=== PATIENT | female | born 1985 | race Caucasian/White ===

== ENCOUNTER 2020-01-16 08:23 | Outpatient (REF) | payer MEDICAID, SELFPAY | END 2020-01-16 08:24 | disposition home or self-care (01) | LOC: HO.LAB 08:23 | PROVIDERS: Visit Provider Internal Medicine | DX: Z20.828 Contact with and (suspected) exposure to other viral communicable diseases (principal) | CPT/HCPCS: C9803; U0003 ==

== ENCOUNTER 2020-02-17 10:05 | Outpatient (REF) | payer MEDICAID, SELFPAY | END 2020-02-17 10:06 | disposition home or self-care (01) | LOC: HO.LAB 10:05 | PROVIDERS: PCP Internal Medicine; Visit Provider Internal Medicine | DX: Z20.828 Contact with and (suspected) exposure to other viral communicable diseases (principal) | CPT/HCPCS: C9803; U0003 ==

== ENCOUNTER 2020-03-01 17:26 | Outpatient (REF) | payer MEDICAID, SELFPAY | END 2020-03-01 17:27 | disposition home or self-care (01) | LOC: HO.LAB 17:26 | PROVIDERS: Visit Provider Internal Medicine | DX: Z20.828 Contact with and (suspected) exposure to other viral communicable diseases (principal) | CPT/HCPCS: 36415; C9803; U0003 ==

== ENCOUNTER 2020-03-10 10:49 | Outpatient (REF) | payer MEDICAID, SELFPAY ==
--- NOTE | 2020-03-10 10:56 | XR_ITS ---
EXAMINATION: XR FOOT, RIGHT CLINICAL INFORMATION: Right foot pain COMPARISON: None TECHNIQUE: AP, lateral, and oblique views of the right foot. FINDINGS: There is no evidence of acute fracture or dislocation of the right foot. No radiopaque foreign body is seen. There is a plantar calcaneal spur. XR/XR foot RT min 3V IMPRESSION: Plantar calcaneal spur.
== END 2020-03-10 10:50 | disposition home or self-care (01) ==
LOC: HO.XRAY 10:49
PROVIDERS: PCP Internal Medicine; Visit Provider Internal Medicine
DX: M79.671 Pain in right foot (principal)
CPT/HCPCS: 73630

== ENCOUNTER → 2020-06-24 08:34 | Outpatient (BNVA) | payer MEDICAID, SELFPAY | PROVIDERS: PCP Internal Medicine; Referring Provider Internal Medicine; Visit Provider Physician Assistant | DX: E66.9 Obesity, unspecified (principal); Z68.38 Body mass index [BMI] 38.0-38.9, adult | CPT/HCPCS: 99212 ==

== ENCOUNTER 2020-07-19 09:46 | Outpatient (REF) | payer MEDICAID, SELFPAY ==
[2020-07-19 10:49] LABS: MANUAL DIFF FLAG NO
[2020-07-19 11:07] LABS: Estimated Average Glucose 114 mg/dL; Hemoglobin A1c % 5.6 %
[2020-07-19 11:09] LABS: Basophils Percent Auto 0.4 % (0-2); Eosinophils Absolute Auto 0.1 X10*3/uL (0.0-0.4); Eosinophils Percent Auto 1.7 % (0-4); Hematocrit 39.1 % (37-47); Hemoglobin 12.8 g/dl (12.0-16.0); Imm Gran Abs Auto 0.01 X10*3/uL (0.00-0.03); Imm Gran Pct Auto 0.2 % (0.0-0.4); Lymphocytes Percent Auto 41.8 % (20-40); Mean Corpuscular HGB Conc 32.7 g/dl (31.0-35.0); Mean Corpuscular Hemoglobin 28.5 pg (27.0-33.0); Mean Corpuscular Volume 87.1 fL (80-98); Mean Platelet Volume 10.5 fL (9.4-12.3); Monocytes Absolute Auto 0.4 X10*3/uL (0.1-1.2); Monocytes Percent Auto 9.2 % (2-11); Neutrophils Absolute Auto 2.2 X10*3/uL (2.0-8.3); Neutrophils Percent Auto 46.7 % (45-73); Platelet Count 371 X10*3/uL (160-400); Red Blood Count 4.49 X10*6/uL (4.20-5.50); Red Cell Distribution Width 12.7 % (11.0-16.0); White Blood Count 4.7 X10*3/uL (4.8-10.8)
[2020-07-19 11:17] LABS: Alanine Aminotransferase 90 U/L (0-31); Albumin Level 4.4 g/dL (3.5-5.0); Alkaline Phosphatase 70 U/L (39-117); Anion Gap 12 (12-20); Aspartate Amino Transferase 36 U/L (5-31); Bilirubin Total 0.6 mg/dL (0.0-1.0); Blood Urea Nitrogen 11 mg/dL (9-16); C Reactive Protein 0.59 mg/dL (< or = 0.50); Calcium 9.4 mg/dL (8.4-10.2); Carbon Dioxide 23 mmol/L (22-29); Chloride 106 mmol/L (96-108); Cholesterol 167 mg/dL; Estimated Glomerular Filt Rate > 60; Glucose Fasting 94 mg/dL (60-99); HDL Cholesterol 40 mg/dL; Iron 71 mcg/dL (30-160); LDL Cholesterol Calculated 117 mg/dl; Percent Iron Saturation 19 % (15-50); Potassium 4.4 mmol/L (3.3-5.1); Sodium 137 mmol/L (135-145); Total Iron Binding Capacity 367 mcg/dL (228-428); Total Protein 7.2 g/dL (6.5-8.0); Triglycerides 54 mg/dL; Unsaturated Iron Binding 296 ug/dL
[2020-07-19 11:40] LABS: Ferritin 57 ng/mL (10-122); TSH reflex Free T4 0.74 uIU/mL (0.32-4.0); Vitamin D 25-OH Total 21.6 ng/mL (>30)
[2020-07-19 12:22] LABS: Folate 14.8 ng/mL (> or = 4.0); Vitamin B12 461 pg/mL (200-900)
[2020-07-20 09:51] LABS: Insulin Level Total 13.7 uIU/mL
[2020-07-21 10:07] LABS: Calcium (PTHI) 9.4 mg/dL (8.6-10.2); PTHI 64 pg/mL (14-64)
[2020-07-22 16:51] LABS: Zinc 75 mcg/dL (60-130)
[2020-07-23 13:03] LABS: Vitamin B1 7 nmol/L (8-30)
[2020-07-23 17:32] LABS: Vitamin A 27 mcg/dL (38-98)
== END 2020-07-19 09:47 | disposition home or self-care (01) ==
LOC: HO.LAB 09:46
PROVIDERS: PCP Internal Medicine; Visit Provider Physician Assistant
DX: E66.01 Morbid (severe) obesity due to excess calories (principal); N92.1 Excessive and frequent menstruation with irregular cycle; Z68.38 Body mass index [BMI] 38.0-38.9, adult
CPT/HCPCS: 36415; 80053; 80061; 82306; 82607; 82728; 82746; 83036; 83525; 83540; 83970; 84425; 84443; 84590; 84630; 85025; 86140

== ENCOUNTER → 2020-07-21 09:06 | Outpatient (BNVA) | payer MEDICAID, SELFPAY | PROVIDERS: PCP Internal Medicine; Referring Provider Internal Medicine; Visit Provider Physician Assistant | DX: E66.9 Obesity, unspecified (principal); Z68.36 Body mass index [BMI] 36.0-36.9, adult | CPT/HCPCS: 99212 ==

== ENCOUNTER 2020-08-08 20:34 | Emergency (ER) | payer MEDICAID, SELFPAY ==
--- NOTE | ~2020-08-08 | XR_ITS ---
EXAMINATION: XR FOOT, LEFT CLINICAL INFORMATION: Injury left foot. Pain and swelling. COMPARISON: None TECHNIQUE: AP, lateral, and oblique views of the left foot. FINDINGS: The bones and soft tissues are normal. No fracture. Alignment is anatomic. Joint spaces are maintained. There is a small plantar calcaneal spur. XR/XR foot LT min 3V IMPRESSION: There is no acute abnormality of the foot.
[2020-08-08 21:56] VITALS: BP 140/80; PULSE 80; RESP 18; TEMP 36.4; O2SAT 96; BMI 37.5
--- NOTE | 2020-08-08 22:25 | ED.LOWEXIN ---
HPI - Extremity Injury (Lower) General Chief Complaint: Extremity Injury, Lower Stated Complaint: FALL Time Seen by Provider: 08/08/20 22:25 History of Present Illness HPI Narrative: Patient is a 35-year-old female status post accidental fall. Patient twisted her left ankle. There is pain over her left foot. Patient denies any systemic complaints she is not on any blood thinners. No nausea no vomiting. Pain is localized. Related Data Home Medications Medication Instructions Recorded Confirmed fexofenadine 60 mg tablet 60 mg PO BID 06/24/20 06/24/20 magnesium citrate 100 mg capsule 100 mg PO DAILY 06/24/20 06/24/20 venlafaxine 75 mg tablet 75 mg PO DAILY 06/24/20 06/24/20 Previous Rx's Medication Instructions Recorded cholecalciferol (vitamin D3) 1,250 1,250 mcg PO QWEEK 28 Days #4 cap 07/21/20 mcg (50,000 unit) capsule mecobalamin (vitamin B12) 1,000 1,000 mcg PO DAILY #30 tab 07/21/20 mcg chewable tablet ibuprofen 400 mg PO Q6H PRN #20 tab 08/08/20 Allergies Allergy/AdvReac Type Severity Reaction Status Date / Time Seasonal Allergies Allergy Severe Anaphylaxis Verified 07/21/20 09:16 Review of Systems Review of Systems: Constitutional: No Weight loss, No Fever, No Chills, No Night Sweats, No Fatigue, No Malaise ENT/Mouth: No Hearing loss, No Ear Pain, No Nasal Congestion, No Sinus Pain, No Hoarseness, No sore throat, No Rhinorrhea, No Swallowing Difficulty Eyes: No Eye Pain, No Swelling, No Redness, No Foreign Body, No Discharge, No Vision Changes Cardiovascular: No Chest Pain, No SOB, No Dyspnea on Exertion, No Orthopnea, No Edema, No Palpitations Respiratory: No Cough, No Sputum, No Wheezing, No Smoke Exposure, No Dyspnea Gastrointestinal: No Nausea, No Vomiting, No Diarrhea, No Constipation, No abdominal Pain, No Hematochezia, No Melena Genitourinary: no irregular bleeding, No Dysuria, No Urinary Frequency, No Hematuria, No Urinary Incontinence, No Urgency, No Flank Pain, No Urinary Flow Changes, No Hesitancy Musculoskeletal: Positive pain to the left foot Neuro: No Weakness, No Numbness, No Paresthesias, No Loss of Consciousness, No Dizziness, No Headache Psych: No Anxiety/Panic, No Depression, No SI/HI/AH/VH, No Social Issues, Heme/Lymph: No Bruising, No Bleeding,No Lymphadenopathy Endocrine: No Polyuria, No Polydipsia, No Temperature Intolerance [facility] Past Medical History Attestation statement: The following information was validated with the patient. Medical History Abdominal bloating BMI 36.0-36.9,adult BMI 38.0-38.9,adult Metrorrhagia Obesity (BMI 30-39.9) Vitamin B12 deficiency Vitamin D deficiency Surgical History History of tonsillectomy and adenoidectomy Hx of wisdom tooth extraction Family History Family History Mother Hypertension Father Diabetes Kidney disease Blindness Brother No problems noted. Brother No problems noted. Brother No problems noted. Sister No problems noted. Sister No problems noted. Son Depression Daughter No problems noted. Social History Social History Alcohol intake: current Alcohol intake frequency: holidays/special occasions only Advance Directives: No Advance Directives Information Provided: Yes Patient : No Physical Exam Vital Signs: Vital Signs: Last Vital Signs Temp 97.5 F 08/08/20 21:56 Pulse 80 08/08/20 21:56 Resp 18 08/08/20 21:56 BP 140/80 H 08/08/20 21:56 Pulse Ox 96 08/08/20 21:56 Body Mass Index 37.5 Appearance: Alert. Oriented X3. No acute distress. Eyes: Pupils equal, round and reactive to light. ENT: Pharynx normal. Neck: Normal inspection. Neck supple. No lymph nodes noted. No crepitus CVS: Normal heart rate and rhythm. Pulses normal. Normal S1 and S2 Respiratory: No respiratory distress. Breath sounds normal. No Wheezing. No rales Abdomen: Soft and nontender. No rigidity. No distention. good BS x4 Skin: Skin warm and dry. Normal skin color. Normal skin turgor. Extremities: Positive pain to the base of the 5th metatarsal on the left. There is no pain on palpation of the medial or lateral malleolus. Patient is able to ambulate. Neuro: Oriented X 3. No motor deficit. No sensory deficit. Moving all extermities. No slurred speech MDM - Extremity Injury (Lower) MDM Narrative Medical decision making narrative: X-ray of the foot showed no evidence of fracture. Will discharge patient home. Motrin for pain. In stable condition. Discharge Plan Discharge Clinical Impression: Contusion of foot Patient Disposition: Home, Self-Care Instructions: Foot Contusion (ED) Prescriptions: New ibuprofen 400 mg tablet 400 mg PO Q6H PRN (Reason: pain) Qty: 20 RF: 0 No Action mecobalamin (vitamin B12) 1,000 mcg tablet,chewable 1,000 mcg PO DAILY Qty: 30 RF: 1 cholecalciferol (vitamin D3) 1,250 mcg (50,000 unit) capsule 1,250 mcg PO QWEEK 28 Days Qty: 4 RF: 1 venlafaxine 75 mg tablet 75 mg PO DAILY RF: 0 fexofenadine [Elsa Allergy] 60 mg tablet 60 mg PO BID RF: 0 magnesium citrate 100 mg capsule 100 mg PO DAILY RF: 0 Referrals: Stuart Garcia MD [Primary Care Provider] - 2 days
== END 2020-08-08 22:51 | disposition home or self-care (01) ==
PROVIDERS: Emergency Provider Emergency Medicine Emergency Medical Services; PCP Internal Medicine
DX: S90.32XA Contusion of left foot, initial encounter (principal); W10.8XXA Fall (on) (from) other stairs and steps, initial encounter; Y93.89 Activity, other specified; Y92.018 Other place in single-family (private) house as the place of occurrence of the external cause; Y99.9 Unspecified external cause status
CPT/HCPCS: 73630; 99283

== ENCOUNTER → 2020-08-11 08:36 | Outpatient (BNVA) | payer MEDICAID, SELFPAY | PROVIDERS: PCP Internal Medicine; Referring Provider Internal Medicine; Visit Provider Dietitian, Registered | DX: E66.9 Obesity, unspecified (principal); Z68.35 Body mass index [BMI] 35.0-35.9, adult | CPT/HCPCS: 97802 ==

== ENCOUNTER → 2020-09-06 08:39 | Outpatient (BNVA) | payer MEDICAID, SELFPAY | PROVIDERS: PCP Internal Medicine; Referring Provider Internal Medicine; Visit Provider Physician Assistant | DX: E66.9 Obesity, unspecified (principal); Z68.34 Body mass index [BMI] 34.0-34.9, adult | CPT/HCPCS: 99212 ==

== ENCOUNTER → 2020-10-03 08:27 | Outpatient (BNVA) | payer MEDICAID, SELFPAY | PROVIDERS: PCP Internal Medicine; Referring Provider Internal Medicine; Visit Provider Dietitian, Registered | DX: E66.9 Obesity, unspecified (principal); Z68.33 Body mass index [BMI] 33.0-33.9, adult | CPT/HCPCS: 97803 ==

== ENCOUNTER → 2020-11-09 09:02 | Outpatient (BNVA) | payer MEDICAID, SELFPAY | PROVIDERS: PCP Internal Medicine; Referring Provider Internal Medicine; Visit Provider Physician Assistant | DX: E66.9 Obesity, unspecified (principal); Z68.32 Body mass index [BMI] 32.0-32.9, adult | CPT/HCPCS: 99212 ==

== ENCOUNTER → 2020-12-07 08:30 | Outpatient (BNVA) | payer MEDICAID, SELFPAY | PROVIDERS: PCP Internal Medicine; Referring Provider Internal Medicine; Visit Provider Dietitian, Registered | DX: E66.9 Obesity, unspecified (principal); R14.0 Abdominal distension (gaseous); E50.9 Vitamin A deficiency, unspecified; E53.9 Vitamin B deficiency, unspecified; E55.9 Vitamin D deficiency, unspecified; F17.210 Nicotine dependence, cigarettes, uncomplicated; Z68.31 Body mass index [BMI] 31.0-31.9, adult; J30.2 Other seasonal allergic rhinitis | CPT/HCPCS: 97803 ==

== ENCOUNTER → 2021-02-03 07:57 | Outpatient (BNVA) | payer MEDICAID, SELFPAY | PROVIDERS: PCP Internal Medicine; Visit Provider Physician Assistant ==

== ENCOUNTER → 2021-02-10 11:26 | Outpatient (BNVA) | payer MEDICAID, SELFPAY | PROVIDERS: PCP Internal Medicine; Referring Provider Internal Medicine; Visit Provider Internal Medicine Gastroenterology | DX: R14.0 Abdominal distension (gaseous) (principal); N92.1 Excessive and frequent menstruation with irregular cycle; R79.89 Other specified abnormal findings of blood chemistry | CPT/HCPCS: 99202 ==

== ENCOUNTER 2021-03-09 11:02 | Outpatient (REF) | payer MEDICAID, SELFPAY ==
--- NOTE | ~2021-03-09 | US_ITS ---
EXAMINATION: US COMPLETE ABDOMEN WITH LIVER ELASTOGRAPHY CLINICAL INFORMATION: Abdominal distention COMPARISON: CT abdomen pelvis 12/17/2015 and abdominal ultrasound 12/15/2015 TECHNIQUE: Real-time imaging of the abdominal viscera. Noninvasive ultrasound liver fibrosis assessment is performed using Jessenia ElastPQ point quantification shear wave elastography (2D-SWE) with a C5-2 MHz transducer. Multiple elastography samples are obtained. Today's examination is mildly limited secondary to overlying bowel gas. FINDINGS: PANCREAS: The visualized pancreatic head and body are normal in appearance. The remainder of the pancreas is obscured from visualization by the overlying bowel gas. ABDOMINAL AORTA: The proximal and distal aortic segments are normal in caliber. The middle abdominal aortic segment is not clearly visualized due to overlying bowel gas. INFERIOR VENA CAVA: Visualized portions are normal. LIVER: Normal. The liver demonstrates normal size, contour and echogenicity. No focal lesion or intrahepatic biliary duct dilatation. The right lobe measures 14.2 cm in length. The left lobe measures 13.1 cm in length. Portal flow is hepatopedal Shear wave liver elastography median stiffness is 1.54 m/s (reference: normal median stiffness is 1.3 m/s or less). IQR/median stiffness to assess sampling precision is 0.10 (reference: good quality data set is IQR/median stiffness of 0.15 or less). GALLBLADDER: Normal. The gallbladder is physiologically distended without evidence of stones, sludge, polyps, wall thickening or pericholecystic fluid. Negative sonographic Arenas's sign. COMMON BILE DUCT: Normal in caliber measuring 0.3 cm in diameter. RIGHT KIDNEY: Normal. No hydronephrosis. No renal calculi or focal parenchymal lesions. The kidney measures 11.6 cm in maximum dimension. LEFT KIDNEY: Normal. No hydronephrosis. No renal calculi or focal parenchymal lesions. The kidney measures cm in maximum dimension. SPLEEN: Normal. The spleen measures 12.5 cm in maximum dimension. FREE FLUID: None. US/US abdomen comp w elastography IMPRESSION: 1. Liver elastography: In the absence of other known clinical signs, measurements rule out compensated advanced chronic liver disease. If there are known clinical signs, further testing may be needed for confirmation. 2. Otherwise unremarkable sonographic imaging of the abdomen. REFERENCE: Society of Radiologists in Ultrasound Liver Stiffness Thresholds (2020): LIVER STIFFNESS THRESHOLDS: *Liver Stiffness equal or less than 1.3 m/s: High probability of being normal. *Liver Stiffness less than 1.7 m/s: In the absence of other known clinical signs, rules out compensated advanced chronic liver disease. *Liver Stiffness 1.7-2.1 m/s: Suggestive of compensated advanced chronic liver disease but need further test for confirmation. *Liver Stiffness over 2.1 m/s: Rules in compensated advanced chronic liver disease. *Liver Stiffness over 2.4 m/s: Suggestive of clinically significant portal hypertension. QUALITY OF DATA SET: *IQR/Median value equal or less than 0.15 implies a quality data set. *IQR/Median value over 0.15 implies a poor quality data set. SIGNIFICANT CHANGE FROM PRIOR EXAM: Significant change if liver stiffness measurement is 10% or greater from prior exam. OTHER CONSIDERATIONS: The stage of liver fibrosis may be overestimated in the setting of acute hepatitis, liver inflammation, elevated liver function tests, hepatic vascular congestion, obstructive cholestasis, non-fasting state, and infiltrative diseases such as amyloidosis and lymphoma. In some patients with NAFLD, the liver stiffness thresholds for compensated advanced chronic liver disease may be lower. In causes other than viral hepatitis and NAFLD, liver stiffness thresholds are not well established.
== END 2021-03-09 11:03 | disposition home or self-care (01) ==
LOC: HO.US 11:02
PROVIDERS: PCP Internal Medicine; Visit Provider Internal Medicine Gastroenterology
DX: R14.0 Abdominal distension (gaseous) (principal)
CPT/HCPCS: 76705; 76981

== ENCOUNTER → 2021-03-10 08:02 | Outpatient (BNVA) | payer MEDICAID, SELFPAY | PROVIDERS: PCP Internal Medicine; Visit Provider Physician Assistant ==

== ENCOUNTER 2021-04-03 07:38 | Day surgery (SDC) | payer MEDICAID, SELFPAY ==
[2021-03-29 12:57] VITALS: BMI 32.1
--- NOTE | 2021-03-31 11:50 | HO.ANESPROP2 ---
Documented by User: Geno Butt NP 03/31/21 11:51 HPI - Anesthesia Eval Consult details Narrative: 35yo F for Colonoscopy PMFSH Active Problems Active Problems: All Active Problems (Updated 02/10/21 @ 11:54 by Laureen Licea MD) Abnormal LFTs (Acute) Obesity (BMI 30-39.9) (Acute) BMI 34.0-34.9,adult (Acute) Vitamin A deficiency (Acute) Abdominal bloating (Acute) BMI 36.0-36.9,adult (Acute) Vitamin D deficiency (Acute) Vitamin B12 deficiency (Acute) BMI 38.0-38.9,adult (Acute) Metrorrhagia (Acute) Past Medical History Medical History Abdominal bloating BMI 34.0-34.9,adult BMI 36.0-36.9,adult BMI 38.0-38.9,adult Metrorrhagia Obesity (BMI 30-39.9) Vitamin A deficiency Vitamin B12 deficiency Vitamin D deficiency Family History Family History Mother Hypertension Father Diabetes Kidney disease Blindness Brother No problems noted. Brother No problems noted. Brother No problems noted. Sister No problems noted. Sister No problems noted. Son Depression Daughter No problems noted. Surgical History Surgical History History of tonsillectomy and adenoidectomy Hx of wisdom tooth extraction Social History Social History Alcohol intake: current Alcohol intake frequency: holidays/special occasions only Patient Tobacco Use Status: Former Tobacco user Years Smoked: socially only Use of substances other than those prescribed or required for medical reasons: No Are you DNR?: No Advance Directives: No Advance Directives Information Provided: Yes Meds Allergies Allergy/AdvReac Type Severity Reaction Status Date / Time Seasonal Allergies Allergy Severe Anaphylaxis Verified 04/03/21 07:48 Home Medications Medication Instructions Recorded Confirmed Last Taken Type fexofenadine 60 mg tablet (Elsa 60 mg PO BID 06/24/20 09/06/20 Unknown History Allergy) magnesium citrate 100 mg capsule 100 mg PO DAILY 06/24/20 09/06/20 Unknown History venlafaxine 75 mg tablet 75 mg PO DAILY 06/24/20 09/06/20 Unknown History Exam Exam Date and Time: March 31, 2021 1150 Height,Weight and Vital Signs: Height 5 ft 7 in Weight 92.986 kg Assessment and Plan Assessment Anesthesia Assessment: Chart Reviewed Documented by User: Belinda Charles MD 04/03/21 08:37 [facility] Past Medical History Medical History Abdominal bloating BMI 34.0-34.9,adult BMI 36.0-36.9,adult BMI 38.0-38.9,adult Metrorrhagia Obesity (BMI 30-39.9) Vitamin A deficiency Vitamin B12 deficiency Vitamin D deficiency Family History Family History Mother Hypertension Father Diabetes Kidney disease Blindness Brother No problems noted. Brother No problems noted. Brother No problems noted. Sister No problems noted. Sister No problems noted. Son Depression Daughter No problems noted. Family history of problems with anesthesia: No Surgical History Surgical History History of tonsillectomy and adenoidectomy Hx of wisdom tooth extraction History of Problems with Anesthesia: No Social History Social History Alcohol intake: current Alcohol intake frequency: holidays/special occasions only Patient Tobacco Use Status: Former Tobacco user Years Smoked: socially only Use of substances other than those prescribed or required for medical reasons: No Are you DNR?: No Advance Directives: No Advance Directives Information Provided: Yes Meds Allergies Allergy/AdvReac Type Severity Reaction Status Date / Time Seasonal Allergies Allergy Severe Anaphylaxis Verified 04/03/21 07:48 Home Medications Medication Instructions Recorded Confirmed Last Taken Type fexofenadine 60 mg tablet (Elsa 60 mg PO BID 06/24/20 09/06/20 Unknown History Allergy) magnesium citrate 100 mg capsule 100 mg PO DAILY 06/24/20 09/06/20 Unknown History venlafaxine 75 mg tablet 75 mg PO DAILY 06/24/20 09/06/20 Unknown History Exam Airway Mallampati Class: II TM Dist: >3cm Neck ROM: Full Heart: rrr Lungs: cta Assessment and Plan Assessment Anesthesia Assessment: Anesthesia Plan Discussed and Chart Reviewed Final Anesthetic Review Family History of Problems with Anesthesia: No History of Problems with Anesthesia: No NPO: Yes ASA Class: III Final Preanesthetic Review: No Changes in Pt Med Stat, Meds/Allgs Chart Reviewed and Consent Obtained/Reviewed Patient Risk: Intermediate Procedure Risk: Intermediate Anesthetic Plan Anesthetic Plan: MAC: Disposition: Standard PACU
[2021-04-03 07:59] VITALS: BP 115/69; PULSE 81; RESP 16; TEMP 37.1; O2SAT 96
[2021-04-03] MEDS: Lactated Ringers 1,000 ML 100 ML IVCONT (08:14)
--- NOTE | 2021-04-03 08:36 | MHC.SHP ---
Pre-Procedural Eval Section A Date of Service: 04/03/21 Section B Chief Complaint: abnomal findings,rectal bleeding Relevant Family History (Specify if Yes): No Relevant Social History: None Present Medications: see Short Stay Collaborative assessment Medical History: Significant History (Metrorrhagia Obesity (BMI 30-39.9) Vitamin A deficiency Vitamin B12 deficiency Vitamin D deficiency) History of Previous Operations: Relevant previous surgery/procedure and date(s) (tonisl, adenoids) Allergies: Allergies Allergy/AdvReac Type Severity Reaction Status Date / Time Seasonal Allergies Allergy Severe Anaphylaxis Verified 04/03/21 07:48 Review of Systems Sugical H&P ROS: Negative: Constitution, Cardiovascular, Respiratory, Neurological, Psychiatric, Hem-Onc, Allergic/Immunologic, Gastrointestinal, Genitourinary, Musculoskeletal, Integumentary, Endocrine and Eyes/Ears/Nose/Throat Exam Surgical H&P Exam: Normal: HEENT, Normal: Heart, Normal: Lungs, Normal: Extremities, Normal: Abdomen, Normal: Skin and Normal: Neurological Plan Diagnosis/Plan: Unchanged I have reviewed the history and physical and performed a pertinent physical examination on my patient. No changes have occurred unless specified.
--- NOTE | 2021-04-03 08:38 | PM.OP ---
Brief Operative Note Date of Service: 04/03/21 Pre-op diagnosis: rectal bleeding, bloating Post-op diagnosis: same Procedure: see op note Surgeon: Laureen Licea MD Anesthesia: MAC Was an Vp Genetic used for this Procedure?: No Estimated blood loss (mL): 0 Condition: stable Disposition: PACU
--- NOTE | 2021-04-03 08:38 | W.PM.OPN ---
Operative Note Operative Note Date of Service: 04/03/21 Narrative: Operative Information Procedure Description: Colonoscopy COLONOSCOPY Instrument: Olympus variable stiffness pediatric scope 190L Colonoscopy Monitoring: Vital signs and clinical assessment, continuous EKG monitoring, Pulse oximetry, Carbon Dioxide monitoring and blood pressure monitoring were done throughout the procedure. Colon withdrawal time was 11 minutes. Procedure: The patient was placed in the left lateral decubitis position and pre-procedure medications were administered. After a digital rectal examination of the ano-rectum, the video colonoscope was inserted into the rectum and advanced through the colon to the cecum/TI. The colonoscope was slowly withdrawn in a retrograde panoramic fashion and the colon mucosa was carefully examined including a retroflexed view of the rectum. Findings and interventions are described below. Procedure Difficulty: easy Findings: Terminal Ileum-normal, bx taken random colon bx taken to r/o infiltrative disease, mast cell disorder Cecum:normal right sided retroflexion was normal Ascending Colon: granular appearing mucosa Transverse Colon -normal Descending Colon:normal Sigmoid Colon: normal Rectum: Retroflexion with small internal hemorrhoids, grade I, some edematous appearing distal rectal tissue, bx taken Anorectum - normal Colon preparation: [place] Bowel Preparation Scale Right colon; 2 Transverse colon: 3 Left colon; 3 (0 = Unprepared colon segment with mucosa not seen due to solid stool that cannot be cleared. 1 = Portion of mucosa of the colon segment seen, but other areas of the colon segment not well seen due to staining, residual stool and/or opaque liquid. 2 = Minor amount of residual staining, small fragments of stool and/or opaque liquid, but mucosa of colon segment seen well. 3 = Entire mucosa of colon segment seen well with no residual staining, small fragments of stool or opaque liquid) Impression and Post Procedure Diagnosis: internal hemorrhoids Plan: High fiber diet leaflet Avoid straining at stool, epsom salts and sitz bath, anusol supps or cream Repeat Colonoscopy aged 45 years or earlier if clinically indicated Above findings were reviewed with the patient and relevant handouts were provided if indicated.
[2021-04-03 08:44] LABS: UPreg QC Valid YES; Urine Pregnancy NEGATIVE (NEGATIVE)
--- NOTE | 2021-04-03 08:57 | PC.NURSE ---
insufficient amount of urine for hcg at 0645. bolused with some fluids and new urine sent down at 830. delay into room due to results pending. results at 845.
[2021-04-03 09:16] VITALS: BP 105/53; PULSE 72; RESP 16; TEMP 36.8; O2SAT 96
[2021-04-03 09:31] VITALS: BP 101/63; PULSE 73; RESP 16; TEMP 36.8; O2SAT 97
== END 2021-04-03 10:03 | disposition home or self-care (01) ==
PROVIDERS: Nurse Practitioner; PCP Internal Medicine; Visit Provider Internal Medicine Gastroenterology
PROC: 0DJD8ZZ Inspection of Lower Intestinal Tract, Via Natural or Artificial Opening Endoscopic (ICD-10-PCS; CPT 45378; principal; 2021-04-03 08:30)
DX: K62.5 Hemorrhage of anus and rectum (principal); R14.0 Abdominal distension (gaseous); N92.1 Excessive and frequent menstruation with irregular cycle; K90.49 Malabsorption due to intolerance, not elsewhere classified; K75.81 Nonalcoholic steatohepatitis (NASH); K64.0 First degree hemorrhoids; E66.9 Obesity, unspecified; Z68.32 Body mass index [BMI] 32.0-32.9, adult; E50.9 Vitamin A deficiency, unspecified; E53.8 Deficiency of other specified B group vitamins; E55.9 Vitamin D deficiency, unspecified; J30.2 Other seasonal allergic rhinitis; Z87.891 Personal history of nicotine dependence
CPT/HCPCS: 45380; 81025; 88305; 88342

== ENCOUNTER → 2021-04-12 08:08 | Outpatient (BNVA) | payer MEDICAID, SELFPAY | PROVIDERS: PCP Internal Medicine; Visit Provider Physician Assistant ==

== ENCOUNTER 2021-05-05 08:35 | Outpatient (REF) | payer MEDICAID, SELFPAY ==
[2021-05-05 17:31] LABS: CT PCR NOT DETECTED (Not Detect.); NG PCR DETECTED (Not Detect.)
[2021-05-06 13:09] LABS: BV Int Neg Control Negative (Negative); BV Int Pos Control Positive (Positive)
[2021-05-11 11:00] LABS: HPV mRNA E6/E7 rflx Not Detected (Not Detected)
== END 2021-05-05 08:36 | disposition home or self-care (01) ==
LOC: HO.LAB 08:35
PROVIDERS: PCP Internal Medicine; Visit Provider Advanced Practice Midwife
DX: Z01.419 Encounter for gynecological examination (general) (routine) without abnormal findings (principal); Z11.51 Encounter for screening for human papillomavirus (HPV); B00.9 Herpesviral infection, unspecified; Z20.2 Contact with and (suspected) exposure to infections with a predominantly sexual mode of transmission
CPT/HCPCS: 87480; 87491; 87510; 87591; 87624; 87660; 88142

== ENCOUNTER 2021-05-24 09:22 | Outpatient (REF) | payer MEDICAID, SELFPAY ==
[2021-05-24 10:27] LABS: MANUAL DIFF FLAG NO
[2021-05-24 11:15] LABS: Basophils Percent Auto 0.2 % (0-2); Eosinophils Absolute Auto 0.1 X10*3/uL (0.0-0.4); Hematocrit 39.2 % (37.0-47.0); Hemoglobin 13.2 g/dl (12.0-16.0); Imm Gran Abs Auto 0.01 X10*3/uL (0.00-0.03); Imm Gran Pct Auto 0.2 % (0.0-0.4); Lymphocytes Absolute Auto 2.3 X10*3/uL (1.2-4.9); Lymphocytes Percent Auto 46.8 % (20-40); Mean Corpuscular HGB Conc 33.7 g/dl (31.0-35.0); Mean Corpuscular Hemoglobin 29.1 pg (27.0-33.0); Mean Corpuscular Volume 86.3 fL (80.0-98.0); Mean Platelet Volume 10.6 fL (9.4-12.3); Monocytes Absolute Auto 0.4 X10*3/uL (0.1-1.2); Monocytes Percent Auto 7.5 % (2-11); Neutrophils Absolute Auto 2.1 x10*3/uL (2.0-8.3); Neutrophils Percent Auto 44.3 % (45-73); Platelet Count 418 X10*3/uL (160-400); Red Blood Count 4.54 X10*6/uL (4.20-5.50); Red Cell Distribution Width 12.7 % (11.0-16.0); White Blood Count 4.8 X10*3/uL (4.8-10.8)
[2021-05-24 12:29] LABS: Erythrocyte Sedimentation Rate 11 MM/HR (0-20)
[2021-05-24 12:48] LABS: Ferritin 44 ng/mL (10-122); Folate 10.8 ng/mL (> or = 4.0); TSH reflex Free T4 1.62 uIU/mL (0.32-4.0); Vitamin B12 421 pg/mL (200-900)
[2021-05-24 12:53] LABS: Syphilis Screen Nonreactive (Nonreactive)
[2021-05-24 13:12] LABS: Alanine Aminotransferase 15 U/L (0-31); Albumin Level 4.5 g/dL (3.5-5.0); Alkaline Phosphatase 63 U/L (39-117); Anion Gap 13 (12-20); Aspartate Amino Transferase 11 U/L (5-31); Bilirubin Total 0.3 mg/dL (0.0-1.0); Blood Urea Nitrogen 17 mg/dL (9-16); Calcium 9.8 mg/dL (8.4-10.2); Carbon Dioxide 24 mmol/L (22-29); Chloride 107 mmol/L (96-108); Estimated Glomerular Filt Rate > 60; Glucose Random 87 mg/dL (60-115); Iron 74 mcg/dL (30-160); Percent Iron Saturation 18 % (15-50); Potassium 4.7 mmol/L (3.3-5.1); Sodium 139 mmol/L (135-145); Total Iron Binding Capacity 421 mcg/dL (228-428); Total Protein 7.9 g/dL (6.5-8.0); Unsaturated Iron Binding 347 ug/dL
[2021-05-25 05:52] LABS: HBc Num1 0.08 S/CO (0.00-0.79); HBsAGNum1 0.19 S/CO (0.00-0.99); HBsAGNum1 0.42 S/CO (0.00-0.99); HIV AB/AG Nonreactive (Nonreactive); HIV Num 1 0.07 S/CO (0.00-0.99); Hepatitis B Core Antibody Nonreactive (Nonreactive); Hepatitis B Surface Antigen Negative (Negative)
[2021-05-25 05:57] LABS: ~HepC Num1 0.11 S/CO (0.00-0.79); ~HepC Num1 0.12 S/CO (0.00-0.79); ~Hepatitis C Antibody Nonreactive (Nonreactive)
[2021-05-25 06:51] LABS: HBS Num2 9.89 mIU/mL (0-7.99); HBS Num3 10.51 mIU/mL (0-7.99); ~Hepatitis B Surface Antibody GRAYZONE (Nonreactive)
[2021-05-25 11:42] LABS: Alpha 1 Anti-trypsin 122 mg/dL (83-199); Ceruloplasmin 30 mg/dL (18-53); Immunoglobulin G 1434 mg/dL (600-1640)
[2021-05-26 08:32] LABS: Hepatitis A Antibody IgM 0.14 Index (0-0.79); ~Hepatitis A Antibody IgM Nonreactive (Nonreactive)
[2021-05-26 13:46] LABS: Anti Nuclear Antibody Screen NEGATIVE (NEGATIVE)
[2021-05-28 12:45] LABS: Mitochondrial Antibodies NEGATIVE (NEGATIVE)
[2021-05-29 13:52] LABS: Transglutaminase Ab IgG <1.0 U/mL; Transglutaminase IgA <1.0 U/mL
[2021-05-30 13:42] LABS: Liver Kidney Microsomal Ab <=20.0 U (<=20.0)
== END 2021-05-24 09:23 | disposition home or self-care (01) ==
LOC: HO.LAB 09:22
PROVIDERS: Internal Medicine Gastroenterology; PCP Internal Medicine; Visit Provider Advanced Practice Midwife
DX: Z12.4 Encounter for screening for malignant neoplasm of cervix (principal); Z11.4 Encounter for screening for human immunodeficiency virus [HIV]; A54.9 Gonococcal infection, unspecified; Z20.2 Contact with and (suspected) exposure to infections with a predominantly sexual mode of transmission; K52.839 Microscopic colitis, unspecified; R79.82 Elevated C-reactive protein (CRP); R10.33 Periumbilical pain; G89.29 Other chronic pain; K75.81 Nonalcoholic steatohepatitis (NASH); R79.89 Other specified abnormal findings of blood chemistry; R14.0 Abdominal distension (gaseous); N92.1 Excessive and frequent menstruation with irregular cycle
CPT/HCPCS: 36415; 80053; 82103; 82390; 82607; 82728; 82746; 82784; 83540; 84443; 85025; 85652; 86038; 86039; 86140; 86255; 86256; 86364; 86376; 86704; 86706; 86709; 86780; 86803; 87340; 87389; 96372; 99211; J0696

== ENCOUNTER → 2021-06-19 08:47 | Outpatient (BNVA) | payer MEDICAID, SELFPAY | PROVIDERS: PCP Internal Medicine; Visit Provider Internal Medicine Gastroenterology | DX: Z13.89 Encounter for screening for other disorder (principal) ==

== ENCOUNTER → 2021-06-20 13:32 | Outpatient (BNVA) | payer MEDICAID, SELFPAY | PROVIDERS: Visit Provider Advanced Practice Midwife | DX: Z13.89 Encounter for screening for other disorder (principal) ==

== ENCOUNTER → 2021-07-13 14:29 | Outpatient (BNVA) | payer MEDICAID, SELFPAY | PROVIDERS: Visit Provider Advanced Practice Midwife | DX: A54.9 Gonococcal infection, unspecified (principal) ==

== ENCOUNTER 2021-10-06 11:29 | Outpatient (REF) | payer MEDICAID, SELFPAY ==
[2021-10-07 02:43] LABS: CT PCR NOT DETECTED (Not Detect.); NG PCR NOT DETECTED (Not Detect.)
[2021-10-07 15:06] LABS: BV Int Neg Control Negative (Negative); BV Int Pos Control Positive (Positive)
== END 2021-10-06 11:30 | disposition home or self-care (01) ==
LOC: HO.LAB 11:29
PROVIDERS: Visit Provider Advanced Practice Midwife
DX: Z11.3 Encounter for screening for infections with a predominantly sexual mode of transmission (principal); A54.9 Gonococcal infection, unspecified; Z20.2 Contact with and (suspected) exposure to infections with a predominantly sexual mode of transmission
CPT/HCPCS: 87480; 87491; 87510; 87591; 87660; 99212

== ENCOUNTER → 2022-05-23 08:35 | Outpatient (BNVA) | payer MEDICAID, SELFPAY | PROVIDERS: PCP Internal Medicine; Visit Provider Physician Assistant ==

== ENCOUNTER 2022-06-08 11:01 | Outpatient (REF) | payer MEDICAID, SELFPAY ==
[2022-06-09 15:22] LABS: H Pylori Breath Test Negative (Negative)
== END 2022-06-08 11:02 | disposition home or self-care (01) ==
LOC: HO.LNP 11:01
PROVIDERS: PCP Internal Medicine; Visit Provider Physician Assistant
DX: E66.01 Morbid (severe) obesity due to excess calories (principal); Z68.37 Body mass index [BMI] 37.0-37.9, adult; Z11.0 Encounter for screening for intestinal infectious diseases
CPT/HCPCS: 83013; 99211; 99212

== ENCOUNTER → 2022-06-29 09:28 | Outpatient (BNVA) | payer MEDICAID, SELFPAY | PROVIDERS: PCP Internal Medicine; Referring Provider Internal Medicine; Visit Provider Physician Assistant | DX: E66.01 Morbid (severe) obesity due to excess calories (principal); Z68.37 Body mass index [BMI] 37.0-37.9, adult | CPT/HCPCS: 99212 ==

== ENCOUNTER → 2022-07-09 09:21 | Outpatient (BNVA) | payer MEDICAID, SELFPAY | PROVIDERS: PCP Internal Medicine; Visit Provider Dietitian, Registered | DX: E66.9 Obesity, unspecified (principal) | CPT/HCPCS: 97803 ==

== ENCOUNTER 2022-07-13 09:05 | Outpatient (REF) | payer MEDICAID, SELFPAY ==
--- NOTE | ~2022-07-13 | XR_ITS ---
EXAMINATION: XR CHEST CLINICAL INFORMATION: Morbid obesity. COMPARISON: 12/15/2015 TECHNIQUE: 2 views of the chest were obtained. FINDINGS: The lungs are well expanded. No focal consolidation. No pleural effusion. Cardiac silhouette is unchanged. XR/XR chest 2V IMPRESSION: No acute abnormality.
--- NOTE | 2022-07-13 11:01 | ECG_ITS ---
Test Reason : obesity Blood Pressure : / mmHG Vent. Rate : 086 BPM Atrial Rate : 086 BPM P-R Int : 184 ms QRS Dur : 086 ms QT Int : 368 ms P-R-T Axes : 036 030 038 degrees QTc Int : 440 ms Normal sinus rhythm Normal ECG When compared to the previous EKG of No significant changes seen Referred By: Sheila Dutton Electronically Signed By:Iain Garg
[2022-07-13 11:19] LABS: MANUAL DIFF FLAG NO
[2022-07-13 12:05] LABS: Basophils Percent Auto 0.3 % (0-2); Eosinophils Absolute Auto 0.1 X10*3/uL (0.0-0.4); Eosinophils Percent Auto 0.7 % (0-4); Hemoglobin 13.7 g/dl (12.0-16.0); Imm Gran Abs Auto 0.06 X10*3/uL (0.00-0.03); Imm Gran Pct Auto 0.4 % (0.0-0.4); Lymphocytes Absolute Auto 2.2 X10*3/uL (1.2-4.9); Lymphocytes Percent Auto 16.3 % (20-40); Mean Corpuscular HGB Conc 33.4 g/dl (31.0-35.0); Mean Corpuscular Hemoglobin 28.5 pg (27.0-33.0); Mean Corpuscular Volume 85.4 fL (80.0-98.0); Mean Platelet Volume 10.4 fL (9.4-12.3); Monocytes Percent Auto 7.5 % (2-11); Neutrophils Absolute Auto 10.3 x10*3/uL (2.0-8.3); Neutrophils Percent Auto 74.8 % (45-73); Platelet Count 366 X10*3/uL (160-400); Red Cell Distribution Width 12.9 % (11.0-16.0); White Blood Count 13.7 X10*3/uL (4.8-10.8)
[2022-07-13 12:30] LABS: Estimated Average Glucose 111 mg/dL; Hemoglobin A1C 133.8726 umol/L; Hemoglobin A1c % 5.5 %
[2022-07-13 12:53] LABS: Alanine Aminotransferase 42 U/L (0-31); Albumin Level 4.5 g/dL (3.5-5.0); Alkaline Phosphatase 71 U/L (39-117); Anion Gap 10 (12-20); Aspartate Amino Transferase 17 U/L (5-31); Bilirubin Total 0.6 mg/dL (0.0-1.0); Blood Urea Nitrogen 11 mg/dL (9-16); Calcium 9.6 mg/dL (8.4-10.2); Carbon Dioxide 27 mmol/L (22-29); Chloride 106 mmol/L (96-108); Cholesterol 171 mg/dL; Estimated Glomerular Filt Rate > 60; Glucose Random 87 mg/dL (60-115); HDL Cholesterol 44 mg/dL; Iron 33 mcg/dL (30-160); LDL Cholesterol Calculated 113 mg/dl; Percent Iron Saturation 10 % (15-50); Potassium 4.3 mmol/L (3.3-5.1); Sodium 139 mmol/L (135-145); Total Iron Binding Capacity 316 mcg/dL (228-428); Total Protein 7.5 g/dL (6.5-8.0); Triglycerides 72 mg/dL; Unsaturated Iron Binding 283 ug/dL
[2022-07-13 13:31] LABS: Ferritin 84 ng/mL (10-122); Folate 10.6 ng/mL (> or = 4.0); TSH reflex Free T4 1.52 uIU/mL (0.32-4.0); Vitamin B12 368 pg/mL (200-900); Vitamin D 25-OH Total 23.4 ng/mL (>30)
[2022-07-13 13:40] LABS: Insulin 18 uU/mL (2-29)
[2022-07-16 15:54] LABS: Calcium (PTHI) 9.5 mg/dL (8.6-10.2); PTHI 40 pg/mL (16-77)
[2022-07-18 17:03] LABS: Zinc 67 mcg/dL (60-130)
[2022-07-20 16:14] LABS: Vitamin A 27 mcg/dL (38-98)
[2022-07-26 05:39] LABS: Vitamin B1 8 nmol/L (8-30)
== END 2022-07-13 09:06 | disposition home or self-care (01) ==
LOC: HO.XRAY 09:05
PROVIDERS: Absent Provider Physician Assistant; PCP Internal Medicine; Visit Provider Counselor Mental Health
DX: Z01.818 Encounter for other preprocedural examination (principal); E66.01 Morbid (severe) obesity due to excess calories
CPT/HCPCS: 36415; 71046; 80053; 80061; 82306; 82607; 82728; 82746; 83036; 83525; 83540; 83970; 84425; 84443; 84590; 84630; 85025; 86140; 93005

== ENCOUNTER 2022-07-31 10:34 | Outpatient (REF) | payer MEDICAID, SELFPAY ==
[2022-08-07 09:44] LABS: HPV mRNA E6/E7 rflx Not Detected (Not Detected)
== END 2022-07-31 10:35 | disposition home or self-care (01) ==
LOC: HO.LNP 10:34
PROVIDERS: PCP Internal Medicine; Visit Provider Advanced Practice Midwife
DX: Z01.419 Encounter for gynecological examination (general) (routine) without abnormal findings (principal); Z11.51 Encounter for screening for human papillomavirus (HPV)
CPT/HCPCS: 87624; 88142

== ENCOUNTER 2022-07-31 12:08 | Outpatient (REF) | payer MEDICAID, SELFPAY ==
[2022-08-01 06:08] LABS: CT PCR NOT DETECTED (Not Detect.); NG PCR NOT DETECTED (Not Detect.)
[2022-08-01 12:37] LABS: BV Int Neg Control Negative (Negative); BV Int Pos Control Positive (Positive)
== END 2022-07-31 12:09 | disposition home or self-care (01) ==
LOC: HO.LAB 12:08
PROVIDERS: Visit Provider Advanced Practice Midwife
DX: Z11.3 Encounter for screening for infections with a predominantly sexual mode of transmission (principal); Z20.2 Contact with and (suspected) exposure to infections with a predominantly sexual mode of transmission
CPT/HCPCS: 0353U; 87480; 87510; 87660

== ENCOUNTER 2022-08-02 08:28 | Outpatient (REF) | payer MEDICAID, SELFPAY ==
--- NOTE | ~2022-08-02 | FL_ITS ---
EXAMINATION: XR FLUOROSCOPY UPPER GI WITH AIR CLINICAL INFORMATION: Morbid obesity. COMPARISON: None available. TECHNIQUE: Air-contrast upper GI examination. FINDINGS: There is normal apposition of vocal cords while saying E . There is normal elevation of the soft palate while saying candy . Patient swallowed thin and thick barium and half-inch diameter barium tablet without difficulty. No nasopharyngeal reflux or tracheal aspiration. There was normal esophageal motility without evidence of hiatal hernia, persistent stricture, or mucosal abnormality. There was noted to be mild transient gastroesophageal reflux within the distal third of the esophagus which cleared rapidly. No hiatal hernia appreciated. The stomach demonstrated normal distensibility without abnormal mass or ulceration. There was no delay in gastric emptying. The duodenal bulb and sweep appeared unremarkable. FLUOROSCOPY TIME: 1.3 minutes. DOSE AREA PRODUCT: 16.884 Gy-cm2 (johnson-centimeter squared). FL/FL upper GI w air IMPRESSION: Minimal gastroesophageal reflux, otherwise unremarkable air-contrast upper GI examination.
--- NOTE | ~2022-08-02 | US_ITS ---
EXAMINATION: US COMPLETE ABDOMEN WITH LIVER ELASTOGRAPHY CLINICAL INFORMATION: Obesity COMPARISON: Previous right upper quadrant ultrasound February [address] November 2015 TECHNIQUE: Real-time imaging of the abdominal viscera. Noninvasive ultrasound liver fibrosis assessment is performed using Jessenia ElastPQ point quantification shear wave elastography (2D-SWE) with a C5-2 MHz transducer. Multiple elastography samples are obtained. FINDINGS: PANCREAS: Normal. ABDOMINAL AORTA: The proximal, middle, and distal aortic segments are normal in caliber. INFERIOR VENA CAVA: Visualized portions are normal. LIVER: Enlarged echogenic liver. The liver is normal in contour. Focal fatty sparing adjacent to the gallbladder. No focal lesion or intrahepatic biliary duct dilatation. The right lobe measures 20 cm in length. The left lobe measures 15 cm in length. Portal flow is normal/hepatopedal Shear wave liver elastography median stiffness is 2 m/s (reference: normal median stiffness is 1.3 m/s or less). This is increased from 1.5 cm February 2021. IQR/median stiffness to assess sampling precision is 0.08 (reference: good quality data set is IQR/median stiffness of 0.15 or less). GALLBLADDER: Normal. The gallbladder is physiologically distended without evidence of stones, sludge, polyps, wall thickening or pericholecystic fluid. COMMON BILE DUCT: Normal in caliber measuring 0.3 cm in diameter. RIGHT KIDNEY: Normal. No hydronephrosis. No renal calculi or focal parenchymal lesions. The kidney measures 11.4 cm in maximum dimension. LEFT KIDNEY: There is question of a small left renal stone. No hydronephrosis. No focal parenchymal lesions. The kidney measures 11 cm in maximum dimension. SPLEEN: Small hypoechoic lesion in the spleen measuring 5 mm. This has internal echoes and may represent a complex cyst. This was not appreciated on prior cervical spine. The spleen measures 12 cm in maximum dimension. FREE FLUID: None. US/US abdomen comp w elastography IMPRESSION: 1. Impression: Enlarged echogenic liver. Question small left renal stone. New 5 mm hypoechoic splenic lesion, question representing a complex cyst. 2. Liver elastography: Adequate liver sampling. Increased liver stiffness suggestive of compensated advanced chronic liver disease but need further test for confirmation. This is increased from prior exam February 2021 REFERENCE: Society of Radiologists in Ultrasound Liver Stiffness Thresholds (2019): LIVER STIFFNESS THRESHOLDS: *Liver Stiffness equal or less than 1.3 m/s: High probability of being normal. *Liver Stiffness less than 1.7 m/s: In the absence of other known clinical signs, rules out compensated advanced chronic liver disease. *Liver Stiffness 1.7-2.1 m/s: Suggestive of compensated advanced chronic liver disease but need further test for confirmation. *Liver Stiffness over 2.1 m/s: Rules in compensated advanced chronic liver disease. *Liver Stiffness over 2.4 m/s: Suggestive of clinically significant portal hypertension. QUALITY OF DATA SET: *IQR/Median value equal or less than 0.15 implies a quality data set. *IQR/Median value over 0.15 implies a poor quality data set. SIGNIFICANT CHANGE FROM PRIOR EXAM: Significant change if liver stiffness measurement is 10% or greater from prior exam. OTHER CONSIDERATIONS: The stage of liver fibrosis may be overestimated in the setting of acute hepatitis, liver inflammation, elevated liver function tests, hepatic vascular congestion, obstructive cholestasis, non-fasting state, and infiltrative diseases such as amyloidosis and lymphoma. In some patients with NAFLD, the liver stiffness thresholds for compensated advanced chronic liver disease may be lower. In causes other than viral hepatitis and NAFLD, liver stiffness thresholds are not well established.
== END 2022-08-02 08:29 | disposition home or self-care (01) ==
LOC: HO.US 08:28
PROVIDERS: PCP Internal Medicine; Visit Provider Physician Assistant
DX: Z01.818 Encounter for other preprocedural examination (principal); E66.01 Morbid (severe) obesity due to excess calories
CPT/HCPCS: 74246; 76705; 76981

== ENCOUNTER → 2022-08-10 14:28 | Outpatient (BNVA) | payer MEDICAID, SELFPAY | PROVIDERS: PCP Internal Medicine; Visit Provider Physician Assistant | DX: E66.01 Morbid (severe) obesity due to excess calories (principal); Z68.35 Body mass index [BMI] 35.0-35.9, adult | CPT/HCPCS: 99212 ==

== ENCOUNTER → 2022-08-13 09:00 | Outpatient (BNVA) | payer OTHER, MEDICAID, SELFPAY | PROVIDERS: PCP Internal Medicine; Visit Provider Counselor Mental Health ==

== ENCOUNTER 2022-08-14 13:30 | Outpatient (REF) | payer MEDICAID, SELFPAY ==
--- NOTE | ~2022-08-14 | US_ITS ---
EXAMINATION: US PELVIS AND TRANSVAGINAL CLINICAL INFORMATION: Screening for cervical cancer. COMPARISON: CT abdomen and pelvis 12/17/2015, pelvic ultrasound 06/07/2012. TECHNIQUE: Ultrasound of the pelvis is performed using both transabdominal and transvaginal transducers along with Doppler. Transvaginal imaging is performed due to inadequate visualization transabdominally. FINDINGS: Uterus: The uterus is anteverted and retroflexed [id number] x 5.5 x 6.4 cm. The double wall endometrial thickness is 0.6 mm. The uterus is smooth in contour and has normal myometrial echogenicity. There is a small 1.2 cm rounded submucosal fibroid. Adnexa: Both ovaries are visualized. There is normal color flow to the adnexa. There is no ovarian torsion. There is no pelvic ascites or fluid collection. Right ovary measures 3.3 x 2.7 x 2.6 cm for a volume of 12.1 mL and appears unremarkable. Left ovary measures 3.7 x 3.5 x 3.6 cm for a volume of 24.4 mL and includes some tiny cysts with a few areas of echogenicity with question of calcification. This appears significantly improved when compared to the prior ultrasound from 2012. Prominent pelvic varices are noted. On the prior CT scan, the ovarian veins were mildly dilated and pelvic varices were seen. US/US pelvic and transvaginal IMPRESSION: 1. Small 1.2 cm submucosal fibroid. 2. Tiny cysts in the left ovary with question of calcification. This appears significantly improved when compared to the prior ultrasound. 3. Prominent pelvic varices.
== END 2022-08-14 13:31 | disposition home or self-care (01) ==
LOC: HO.US 13:30
PROVIDERS: PCP Internal Medicine; Visit Provider Advanced Practice Midwife
DX: N93.9 Abnormal uterine and vaginal bleeding, unspecified (principal); L68.0 Hirsutism
CPT/HCPCS: 76830; 76856

== ENCOUNTER 2022-09-03 13:06 | Outpatient (AMB) | payer MEDICAID, SELFPAY ==
--- NOTE | 2022-09-03 13:07 | MHC.OFFVISWM ---
Intake VS Expanded 09/03/22 13:08 Height 5 ft 7 in Weight 226 lb 9.6 oz BMI 35.5 BP 137/78 Blood Pressure Location Rt brachial Blood Pressure Position Sitting Pulse 80 Pulse Source Pulse Oximeter Temp 98.2 F Temperature Source Temporal Artery Scan Pulse Oximetry 96 Oxygen Delivery Method Room Air Body Fat 83.6 Body Fat Percentage 36.9 Free Fat Mass 142.8 Muscle Mass 135.6 Visceral Mass 8.0 Water Mass 102.2 BMR 1,972 Intake Visit Reasons: (OV) Surgical Consult SWL Allergies Seasonal Allergies Allergy (Severe, Verified 09/03/22 13:12) Anaphylaxis HPI HPI Comments History of Present Illness Details The patient is a 37-year-old woman with a lifelong struggle with obesity who presents for consideration of surgical weight loss. On 05/23/2022 during a weight check, the patient presented with a height 5ft 7in and weight 255.2 lbs - using [facility] BMI calculator her BMI is 40. The patient has had a lifelong struggle with her weight and tried numerous fad diets as well as portion control. She is had weight loss and gain and is interested in a definitive treatment option. Patient entered the surgical weight loss program and is congratulated on her interval weight loss after being educated on the importance of diet and exercise. She presents today at a weight of 226.6 lb/BMI 35.5. ESS 3 GERD 1 QOL 99 GUADALUPE 1 Pre op work up completed as follows: SWL classes - 10/02 appts? - 07/13, will have follow up next week with [facility] ? ? RD appts - 07/09, cleared H pylori - negative Labs - vitamins A and D deficient CXR and ECG - both normal ULS - enlarged fatty liver, R 20 cms, L 15 cms UGI - minimal reflux? ? PFSH Medical History Abdominal bloating BMI 34.0-34.9,adult BMI 36.0-36.9,adult BMI 38.0-38.9,adult Metrorrhagia Obesity (BMI 30-39.9) Vitamin A deficiency Vitamin B12 deficiency Vitamin D deficiency Surgical History History of tonsillectomy and adenoidectomy Hx of colonoscopy Hx of wisdom tooth extraction Family History Mother Hypertension Father Diabetes Kidney disease Blindness Brother No problems noted. Brother No problems noted. Brother No problems noted. Sister No problems noted. Sister No problems noted. Son Depression Daughter No problems noted. Social History Alcohol intake: current Alcohol intake frequency: holidays/special occasions only Patient Tobacco Use Status: Former Tobacco user Years Smoked: socially only Female Reproductive History Menstrual Age of Menarche: 14 Review of Systems Const All systems reviewed & are unremarkable except as noted in HPI and below Reports as per HPI Physical Exam The patient is non-toxic & in good spirits NC/AT, PERRLA, EOMI Mood, affect & judgment all appear appropriate Sclera anicteric conjunctiva pink and moist Oropharynx is clear with no aphthous ulcers, Mallampati class 4, mucous membranes moist Neck is supple with no masses, adenopathy or bruits Thyroid is nontender and free of dominant masses Heart is regular, normal S1-S2 no rubs or murmurs Lungs are clear and equal anteriorly with no audible wheezing, rubs or dullness to percussion Abdomen is obese with no demonstrable hernias. No HSM, rebound, rigidity, guarding, masses or bruits are present. Rectal exam is deferred Skin has good turgor and is free of rashes Extremities free of cyanosis clubbing edema Results Reviewed Results Reviewed: Labs dated 07/13/2022 Hemoglobin 13.7 with normal indices; white blood cell count was elevated at 13.7; platelet count 366K iron saturation slightly depressed at 10, otherwise iron studies normal CRP elevated at 3.60 Hemoglobin A1c 5.5 ALT elevated at 42, remaining LFTs normal Diagnostic imaging Upper GI: No hiatal hernia; minimal GERD Abdominal ultrasound: Enlarged liver with NAFLD & liver stiffness demonstrated by increased year suggestive of compensated liver disease CXR: NAD Vitamin D in vitamin-A were low and treated; remaining multivitamins normal Lipid panel within normal parameters Assessment & Plan Assessment & Plan (1) BMI 35.0-35.9,adult: Code(s): Z68.35 - Body mass index [BMI] 35.0-35.9, adult (2) Class 2 obesity due to excess calories with body mass index (BMI) of 35.0 to 35.9 in adult: Code(s): E66.09 - Other obesity due to excess calories; Z68.35 - Body mass index [BMI] 35.0-35.9, adult (3) Vitamin D deficiency: Code(s): E55.9 - Vitamin D deficiency, unspecified (4) Vitamin B12 deficiency: Code(s): E53.8 - Deficiency of other specified B group vitamins (5) Hepatomegaly: Code(s): R16.0 - Hepatomegaly, not elsewhere classified (6) Liver fibrosis: Code(s): K74.00 - Hepatic fibrosis, unspecified Plan The patient is congratulated on the healthy ongoing lifestyle changes and subsequent weight loss. She is dropped from 255 lb documented in April to 226.6 lb. The option of continued medical weight loss versus operative management including sleeve gastrectomy versus gastric bypass were discussed. The patient would like to proceed with a laparoscopic sleeve gastrectomy, possible hiatal hernia repair, intraoperative endoscopy and possible ventral hernia repair. I reviewed the inherent risks of this procedure which include, but are not limited to: Bleeding that could require another operation or blood transfusion; the inherent risks of transfusion reaction infectious disease from blood transfusions; the risk of staple line leaks that could cause sepsis, multi-system organ failure and ; the risk of mesenteric or deep vein thrombosis of the lower extremities that could cause a fatal pulmonary embolism was reviewed; the risk of GERD that could require conversion to gastric bypass was discussed; the risk of recurrent hiatal hernia, especially in the setting of weight regain was reviewed. The risk of weight regain if maladaptive eating and sedentary behavior continue was discussed. The importance of proper diet and increased activity to augment surgical weight loss and the fact that no operation would result in weight loss of poor dietary decisions and sedentary behavior are resumed were discussed at length and apparently understood. The typical perioperative and postoperative course were discussed along with activity restrictions. Bowel prep was reviewed with the patient. She is interested in proceeding so she will be submitted to the insurance and will see her back with plans to begin the liver shrinking diet. The importance of obtaining from carbohydrates and fats at this time given her hepatomegaly and NAFLD was reviewed and apparently understood. Coding Level of Care Code Est Pt Level 4 (86565) Diagnoses BMI 35.0-35.9,adult Z68.35 Class 2 obesity due to excess calories with body mass index (BMI) of 35.0 to 35.9 in adult E66.09; Z68.35 Vitamin D deficiency E55.9 Vitamin B12 deficiency E53.8 Hepatomegaly R16.0 Liver fibrosis K74.00
[2022-09-03 13:08] VITALS: BP 137/78; PULSE 80; TEMP 36.8; O2SAT 96; BMI 35.5
== END 2022-09-03 13:45 | disposition home or self-care (01) ==
PROVIDERS: PCP Internal Medicine; Visit Provider Surgery
DX: E66.09 Other obesity due to excess calories (principal); Z68.35 Body mass index [BMI] 35.0-35.9, adult; E55.9 Vitamin D deficiency, unspecified; E53.8 Deficiency of other specified B group vitamins; R16.0 Hepatomegaly, not elsewhere classified; K74.00 Hepatic fibrosis, unspecified
CPT/HCPCS: 99214

== ENCOUNTER → 2022-09-03 13:06 | Outpatient (BNVA) | payer MEDICAID, SELFPAY | PROVIDERS: PCP Internal Medicine; Visit Provider Surgery | DX: E66.09 Other obesity due to excess calories (principal); E55.9 Vitamin D deficiency, unspecified; E53.8 Deficiency of other specified B group vitamins; R16.0 Hepatomegaly, not elsewhere classified; K74.00 Hepatic fibrosis, unspecified; Z68.35 Body mass index [BMI] 35.0-35.9, adult | CPT/HCPCS: 99212 ==

== ENCOUNTER 2022-10-03 09:21 | Outpatient (AMB) | payer OTHER, SELFPAY ==
--- NOTE | 2022-10-03 09:13 | MHC.WMTHER ---
Intake Intake Visit Reasons: VIDEO f/u Allergies Seasonal Allergies Allergy (Severe, Verified 09/03/22 13:12) Anaphylaxis [facility] Medical History Abdominal bloating BMI 34.0-34.9,adult BMI 36.0-36.9,adult BMI 38.0-38.9,adult Metrorrhagia Obesity (BMI 30-39.9) Vitamin A deficiency Vitamin B12 deficiency Vitamin D deficiency Surgical History History of tonsillectomy and adenoidectomy Hx of colonoscopy Hx of wisdom tooth extraction Family History Mother Hypertension Father Diabetes Kidney disease Blindness Brother No problems noted. Brother No problems noted. Brother No problems noted. Sister No problems noted. Sister No problems noted. Son Depression Daughter No problems noted. Social History Alcohol intake: current Alcohol intake frequency: holidays/special occasions only Patient Tobacco Use Status: Former Tobacco user Years Smoked: socially only Female Reproductive History Menstrual Age of Menarche: 14 Behavioral Health Assessment Weight Management Therapy Therapy Notes Details Pt presents for a f/up. PT reports ongoing struggles with following meal plan, overeating (not every day, only 2 days in past 2 weeks) and feeling shame/guilt after eating. INTERVENTIONS: Active listening, processed ongoing challenges. Validated feelings. CBT: cognitive restructuring tecniques, used gentle challenging, reframing and used ABC analysis to identofy recent events and responses. Created alternative thoughts. Psychoeducation about the use of thought recor/creating alternative thoughts and the use of a 2 part daily journal. RESPONSE: Receptive, open and engaged. Patient was able to share variety of recent events and focus on alternative thoughts for prevention. She identified possible strategies such as bring own meals/shakes, distract, mindfull walk, praing, and agreed to used 2 discussed tecniques. PLAN: F/up in 2-3 weeks we will continue providing support with rigid thinking that lead to self-sabotaging. Therapist sent 2 exercises via email for client to use daily even if doing well. (thought record and daiy journal) Presenting Concerns Referral Source WMP provider Reason for referral Completion of behavioral health assessment as part of process for weight-loss surgery. Precipitating Event Obesity. Assessment & Plan Assessment & Plan (1) Trauma and stressor-related disorder: Code(s): F43.9 - Reaction to severe stress, unspecified (2) Depression: Code(s): F32.A - Depression, unspecified Plan: We will work on boundaries, communication skills, habit building, mindset and relapse prevention strategies for depression and stress-related symptoms. Plan PT is cleared from the mental health standpoint. This keno writer / runner will continue providing support every 2-3 weeks due to recent setback. Telehealth Telehealth Location of provider rendering services: other (home office. [place], [place] Location of patient: address on file Patient Identification confirmed using: Name, : Yes Telehealth method: video Patient verbally consented to treatment: Yes Patient verbally consented to billing insurance company: Yes Patient informed of any privacy concerns related to visit: Yes Minutes spent on Phone/Video with Pt.: 60 Coding Level of Care Code Established Pt Tele Psytx >53 mins (40049) Patient Type Established Diagnoses Trauma and stressor-related disorder F43.9 Depression F32.A Time Spent (min) 60
== END 2022-10-03 10:06 | disposition home or self-care (01) ==
LOC: HO.HBST 09:21
PROVIDERS: PCP Internal Medicine; Visit Provider Counselor Mental Health
DX: F43.9 Reaction to severe stress, unspecified (principal); F32.A Depression, unspecified
CPT/HCPCS: 90837

== ENCOUNTER → 2022-10-03 09:21 | Outpatient (BNVA) | payer OTHER, MEDICAID, SELFPAY | PROVIDERS: PCP Internal Medicine; Visit Provider Counselor Mental Health ==

== ENCOUNTER 2022-10-08 08:31 | Outpatient (AMB) | payer MEDICAID, SELFPAY ==
--- NOTE | 2022-10-08 08:34 | MHC.OFFVISWM ---
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: Fisherman Helper offered & declined Allergies Seasonal Allergies Allergy (Severe, Verified 10/08/22 08:45) Anaphylaxis Medication List - Last Reconciled 10/08/22 by Wilson Bairse MD cholecalciferol (vitamin D3) 25 mcg PO DAILY norethindrone (contraceptive) 0.35 mg PO DAILY venlafaxine ER 75 mg PO DAILY vitamin A palmitate 6,000 mcg (2 x 3,000 mcg (10,000 unit)) PO DAILY 2 weeks Is last menstrual period known: Yes Last menstrual period: 10/07/22 Do you need a note to return to daycare/school/sports/work: No HPI HPI Comments History of Present Illness Details The patient is a 37-year-old woman with a lifelong struggle with obesity who presents for consideration of surgical weight loss. On 05/23/2022 during a weight check, the patient presented with a height 5ft 7in and weight 255.2 lbs - using [facility] BMI calculator her BMI is 40. The patient has had a lifelong struggle with her weight and tried numerous fad diets as well as portion control. She is had weight loss and gain and is interested in a definitive treatment option. Patient entered the surgical weight loss program and is congratulated on her interval weight loss after being educated on the importance of diet and exercise. She presents today at a weight of 228.2 lb/BMI 35.8. She is currently having menses & feels bloated. She has a history of PCOS being addressed by Ysabel Jordan, her seaman. She notes that she was placed on an oral contraceptive, but does not recall the name. We did discuss holding on this right now since any estrogen based medications increase the risk for DVT and PE. We will obtain accurate name of the medication and coordinate with the patient. ESS 3 GERD 1 QOL 99 GUADALUPE 1 Pre op work up completed as follows: SWL classes - 10/02 appts? - 07/13, will have follow up next week with [facility] ? ? RD appts - 07/09, cleared H pylori - negative Labs - vitamins A and D deficient CXR and ECG - both normal ULS - enlarged fatty liver, R 20 cms, L 15 cms UGI - minimal reflux, no HH? ? PFSH Medical History Abdominal bloating BMI 34.0-34.9,adult BMI 36.0-36.9,adult BMI 38.0-38.9,adult Metrorrhagia Obesity (BMI 30-39.9) Vitamin A deficiency Vitamin B12 deficiency Vitamin D deficiency Surgical History History of tonsillectomy and adenoidectomy Hx of colonoscopy Hx of wisdom tooth extraction Family History Mother Hypertension Father Diabetes Kidney disease Blindness Brother No problems noted. Brother No problems noted. Brother No problems noted. Sister No problems noted. Sister No problems noted. Son Depression Daughter No problems noted. Social History Alcohol intake: current Alcohol intake frequency: holidays/special occasions only Patient Tobacco Use Status: Former Tobacco user Years Smoked: socially only Female Reproductive History Menstrual Age of Menarche: 14 Date of last menstrual period: 10/07/22 Review of Systems Const All systems reviewed & are unremarkable except as noted in HPI and below Reports as per HPI Physical Exam On exam, she is nontoxic and in good spirits Sclera anicteric She is in no acute respiratory distress Abdomen is obese Results Reviewed Results Reviewed: Labs dated 07/13/2022 Hemoglobin 13.7 with normal indices; white blood cell count was elevated at 13.7; platelet count 366K iron saturation slightly depressed at 10, otherwise iron studies normal CRP elevated at 3.60 Hemoglobin A1c 5.5 ALT elevated at 42, remaining LFTs normal Diagnostic imaging Upper GI: No hiatal hernia; minimal GERD Abdominal ultrasound: Enlarged liver with NAFLD & liver stiffness demonstrated by increased year suggestive of compensated liver disease CXR: NAD Vitamin D in vitamin-A were low and treated; remaining multivitamins normal Lipid panel within normal parameters Assessment & Plan Assessment & Plan (1) Class 2 obesity due to excess calories with body mass index (BMI) of 35.0 to 35.9 in adult: Code(s): E66.09 - Other obesity due to excess calories; Z68.35 - Body mass index [BMI] 35.0-35.9, adult (2) Hepatomegaly: Code(s): R16.0 - Hepatomegaly, not elsewhere classified (3) Liver fibrosis: Code(s): K74.00 - Hepatic fibrosis, unspecified (4) Vitamin D deficiency: Code(s): E55.9 - Vitamin D deficiency, unspecified (5) Vitamin A deficiency: Code(s): E50.9 - Vitamin A deficiency, unspecified (6) PCOS (polycystic ovarian syndrome): Code(s): E28.2 - Polycystic ovarian syndrome (7) Anxiety: Code(s): F41.9 - Anxiety disorder, unspecified (8) Morbid obesity: Code(s): E66.01 - Morbid (severe) obesity due to excess calories (9) Abnormal LFTs: Code(s): R79.89 - Other specified abnormal findings of blood chemistry Plan The patient is congratulated on the healthy ongoing lifestyle changes and subsequent weight loss.? She is dropped from 255 lb documented in April to 228.2 lb/BMI 35.8.? The option of continued medical weight loss versus operative management including sleeve gastrectomy versus gastric bypass were discussed.? The patient would like to proceed with a laparoscopic sleeve gastrectomy, possible hiatal hernia repair, intraoperative endoscopy and possible ventral hernia repair. The patient is had some minimal weight flux which may be secondary to her menses as well as the summer heat/water weight. We discussed this and the patient seemed reassured. I reviewed the inherent risks of this procedure which include, but are not limited to: Bleeding that could require another operation or blood transfusion; the inherent risks of transfusion reaction infectious disease from blood transfusions; the risk of staple line leaks that could cause sepsis, multi-system organ failure and ; the risk of mesenteric or deep vein thrombosis of the lower extremities that could cause a fatal pulmonary embolism was reviewed; the risk of GERD that could require conversion to gastric bypass was discussed; the risk of recurrent hiatal hernia, especially in the setting of weight regain was reviewed. The risk of weight regain if maladaptive eating and sedentary behavior continue was discussed. The importance of proper diet and increased activity to augment surgical weight loss and the fact that no operation would result in weight loss of poor dietary decisions and sedentary behavior are resumed were discussed at length and apparently understood. The importance of avoiding unintended due to the risks to the baby were also reviewed and apparently understood. Will submit to the patient's insurance program; the patient will need instruction regarding the liver shrinking diet and will return to review operative consents. She is encouraged to bring her or other support person and write down any questions between now and her follow-up appointment. Coding Level of Care Code Est Pt Level 4 (36174) Diagnoses Class 2 obesity due to excess calories with body mass index (BMI) of 35.0 to 35.9 in adult E66.09; Z68.35 Hepatomegaly R16.0 Liver fibrosis K74.00 Vitamin D deficiency E55.9 Vitamin A deficiency E50.9 PCOS (polycystic ovarian syndrome) E28.2 Anxiety F41.9 Morbid obesity E66.01 Abnormal LFTs R79.89
[2022-10-08 08:41] VITALS: BP 139/89; PULSE 78; TEMP 36.2; O2SAT 97; BMI 35.7
== END 2022-10-08 10:11 | disposition home or self-care (01) ==
PROVIDERS: PCP Internal Medicine; Visit Provider Surgery
DX: E66.09 Other obesity due to excess calories (principal); Z68.35 Body mass index [BMI] 35.0-35.9, adult; R16.0 Hepatomegaly, not elsewhere classified; K74.00 Hepatic fibrosis, unspecified; E55.9 Vitamin D deficiency, unspecified; E50.9 Vitamin A deficiency, unspecified; E28.2 Polycystic ovarian syndrome; F41.9 Anxiety disorder, unspecified; E66.01 Morbid (severe) obesity due to excess calories; R79.89 Other specified abnormal findings of blood chemistry
CPT/HCPCS: 99214

== ENCOUNTER → 2022-10-08 08:31 | Outpatient (BNVA) | payer MEDICAID, SELFPAY | PROVIDERS: PCP Internal Medicine; Visit Provider Surgery | DX: E66.09 Other obesity due to excess calories (principal); E28.2 Polycystic ovarian syndrome; R16.0 Hepatomegaly, not elsewhere classified; K74.00 Hepatic fibrosis, unspecified; E50.9 Vitamin A deficiency, unspecified; E55.9 Vitamin D deficiency, unspecified; F41.9 Anxiety disorder, unspecified; Z68.35 Body mass index [BMI] 35.0-35.9, adult | CPT/HCPCS: 99212 ==

== ENCOUNTER 2022-10-16 08:59 | Outpatient (AMB) | payer MEDICAID, SELFPAY ==
--- NOTE | 2022-10-16 09:09 | A.OFFVIS_ITS ---
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 On 05/23/2022 during a weight check, the patient presented with a height 5ft 7in and weight 255.2 lbs - using NIH BMI calculator her BMI is 40. The patient has had a lifelong struggle with her weight and tried numerous fad diets as well as portion control. She is had weight loss and gain and is interested in a definitive treatment option. Patient entered the surgical weight loss program and is congratulated on her in terval weight loss after being educated on the importance of diet and exercise. She presents today at a weight of 228.8 lb/BMI 35.8, which is unchanged since her last visit. She is currently having menses & feels bloated. She has a history of PCOS being addressed by Ysabel SethiFredonia, her ux engineer. She notes that she was placed on an oral contraceptive, but does not recall the name. We did discuss holding on this right now since any estrogen based medications increase the risk for DVT and PE. We will obtain accurate name of the medication and coordinate with the patient. ESS 3 GERD 1 QOL 99 GUADALUPE 1 Pre op work up completed as follows: SWL classes - 10/02 BH appts? - 07/13, will have follow up next week with [facility] ? ? RD appts - 07/09, cleared H pylori - negative Labs - vitamins A and D deficient CXR and ECG - both normal ULS - enlarged fatty liver, R 20 cms, L 15 cms UGI - minimal reflux, no HH? ? PFSH Medical History Abdominal bloating BMI 34.0-34.9,adult BMI 36.0-36.9,adult BMI 38.0-38.9,adult Metrorrhagia Obesity (BMI 30-39.9) Vitamin A deficiency Vitamin B12 deficiency Vitamin D deficiency Surgical History History of tonsillectomy and adenoidectomy Hx of colonoscopy Hx of wisdom tooth extraction Family History Mother Hypertension Father Diabetes Kidney disease Blindness Brother No problems noted. Brother No problems noted. Brother No problems noted. Sister No problems noted. Sister No problems noted. Son Depression Daughter No problems noted. Social History Alcohol intake: current Alcohol intake frequency: holidays/special occasions only Patient Tobacco Use Status: Former Tobacco user Years Smoked: socially only Female Reproductive History Menstrual Age of Menarche: 14 Review of Systems Const All systems reviewed & are unremarkable except as noted in HPI and below Reports as per HPI Physical Exam On exam, she is nontoxic and in good spirits Sclera anicteric She is in no acute respiratory distress Abdomen is obese Results Reviewed Results Reviewed: Labs dated 07/13/2022 Hemoglobin 13.7 with normal indices; white blood cell count was elevated at 13.7; platelet count 366K iron saturation slightly depressed at 10, otherwise iron studies normal CRP elevated at 3.60 Hemoglobin A1c 5.5 ALT elevated at 42, remaining LFTs normal Diagnostic imaging Upper GI: No hiatal hernia; minimal GERD Abdominal ultrasound: Enlarged liver with NAFLD & liver stiffness demonstrated by increased year suggestive of compensated liver disease CXR: NAD Vitamin D in vitamin-A were low and treated; remaining multivitamins normal Lipid panel within normal parameters Assessment & Plan Assessment & Plan (1) Class 2 obesity due to excess calories with body mass index (BMI) of 35.0 to 35.9 in adult: Code(s): E66.09 - Other obesity due to excess calories; Z68.35 - Body mass index [BMI] 35.0-35.9, adult (2) Hepatomegaly: Code(s): R16.0 - Hepatomegaly, not elsewhere classified (3) Liver fibrosis: Code(s): K74.00 - Hepatic fibrosis, unspecified (4) PCOS (polycystic ovarian syndrome): Code(s): E28.2 - Polycystic ovarian syndrome (5) Hirsutism: Code(s): L68.0 - Hirsutism (6) Vitamin D deficiency: Code(s): E55.9 - Vitamin D deficiency, unspecified (7) Vitamin B12 deficiency: Code(s): E53.8 - Deficiency of other specified B group vitamins (8) Vitamin A deficiency: Code(s): E50.9 - Vitamin A deficiency, unspecified (9) Abnormal LFTs: Code(s): R79.89 - Other specified abnormal findings of blood chemistry (10) Obesity (BMI 30-39.9): Code(s): E66.9 - Obesity, unspecified Plan The patient is congratulated on her continued healthy lifestyle changes, choices and the option of continued medical weight loss versus surgical weight loss, specifically bariatric surgery was reviewed again. The patient would like to proceed with a laparoscopic sleeve gastrectomy, possible hiatal hernia repair, intraoperative upper endoscopy and possible ventral hernia repair. We discussed the importance of the 2 week preop liver shrinking diet given her hepatomegaly and fatty liver disease. We also discussed the importance of obtaining the bowel prep and celebrate 4 in 1 multivitamins preoperatively and the typical pre/danelle and postoperative course was discussed with the patient and her questions answered. We also reviewed her preoperative quiz together and her questions seemed to be satisfactorily answered. She was given a copy to review for Education reasons. I reviewed the inherent risks of this procedure which include, but are not limited to: Bleeding that could require another operation or blood transfusion; the inherent risks of transfusion reaction infectious disease from blood transfusions; the risk of staple line leaks that could cause sepsis, multi- system organ failure and ; the risk of mesenteric or deep vein thrombosis of the lower extremities that could cause a fatal pulmonary embolism was reviewed; the risk of GERD that could require conversion to gastric bypass was discussed; the risk of recurrent hiatal hernia, especially in the setting of weight regain was reviewed. The risk of weight regain if maladaptive eating and sedentary behavior continue was discussed. The importance of proper diet and increased activity to augment surgical weight loss and the fact that no operation would result in weight loss of poor dietary decisions and sedentary behavior are resumed were discussed at length and apparently understood. The patient had the option of having a guidance consultant present and declined this option. Prescriptions were sent to her pharmacy, patient is going to obtain labs today. She understands that a repeat type and screen may be required. She is already obtained the celebrate 4 in 1 shakes. She will void her urinary bladder teacher of family and consumer science to surgery, received Ancef and SCDs will be in place. Orders: Orders Type and Screen Today E28.2 - Polycystic ovarian syndrome, E50.9 - Vitamin A deficiency, unspecified, E53.8 - Deficiency of other specified B group vitamins, E55.9 - Vitamin D deficiency, unspecified, E66.09 - Other obesity due to excess calories, E66.9 - Obesity, unspecified, K74.00 - Hepatic fibrosis, unspecified, L68.0 - Hirsutism, R16.0 - Hepatomegaly, not elsewhere classified, R79.89 - Other specified abnormal findings of blood chemistry, Z68.35 - Body mass index [BMI] 35.0-35.9, adult Vitamin B12 Today E28.2 - Polycystic ovarian syndrome, E50.9 - Vitamin A deficiency, unspecified, E53.8 - Deficiency of other specified B group vitamins, E55.9 - Vitamin D deficiency, unspecified, E66.09 - Other obesity due to excess calories, E66.9 - Obesity, unspecified, K74.00 - Hepatic fibrosis, unspecified, L68.0 - Hirsutism, R16.0 - Hepatomegaly, not elsewhere classified, R79.89 - Other specified abnormal findings of blood chemistry, Z68.35 - Body mass index [BMI] 35.0-35.9, adult Comprehensive Met. Panel Today E28.2 - Polycystic ovarian syndrome, E50.9 - Vitamin A deficiency, unspecified, E53.8 - Deficiency of other specified B group vitamins, E55.9 - Vitamin D deficiency, unspecified, E66.09 - Other obesity due to excess calories, E66.9 - Obesity, unspecified, K74.00 - Hepatic fibrosis, unspecified, L68.0 - Hirsutism, R16.0 - Hepatomegaly, not elsewhere classified, R79.89 - Other specified abnormal findings of blood chemistry, Z68.35 - Body mass index [BMI] 35.0-35.9, adult C Reactive Protein Today E28.2 - Polycystic ovarian syndrome, E50.9 - Vitamin A deficiency, unspecified, E53.8 - Deficiency of other specified B group vitamins, E55.9 - Vitamin D deficiency, unspecified, E66.09 - Other obesity due to excess calories, E66.9 - Obesity, unspecified, K74.00 - Hepatic fibrosis, unspecified, L68.0 - Hirsutism, R16.0 - Hepatomegaly, not elsewhere classified, R79.89 - Other specified abnormal findings of blood chemistry, Z68.35 - Body mass index [BMI] 35.0-35.9, adult Ferritin Today E28.2 - Polycystic ovarian syndrome, E50.9 - Vitamin A deficiency, unspecified, E53.8 - Deficiency of other specified B group vitamins, E55.9 - Vitamin D deficiency, unspecified, E66.09 - Other obesity due to excess calories, E66.9 - Obesity, unspecified, K74.00 - Hepatic fibrosis, unspecified, L68.0 - Hirsutism, R16.0 - Hepatomegaly, not elsewhere classified, R79.89 - Other specified abnormal findings of blood chemistry, Z68.35 - Body mass index [BMI] 35.0-35.9, adult Hemoglobin A1c Today E28.2 - Polycystic ovarian syndrome, E50.9 - Vitamin A deficiency, unspecified, E53.8 - Deficiency of other specified B group vitamins, E55.9 - Vitamin D deficiency, unspecified, E66.09 - Other obesity due to excess calories, E66.9 - Obesity, unspecified, K74.00 - Hepatic fibrosis, unspecified, L68.0 - Hirsutism, R16.0 - Hepatomegaly, not elsewhere classified, R79.89 - Other specified abnormal findings of blood chemistry, Z68.35 - Body mass index [BMI] 35.0-35.9, adult IRON PROFILE Today E28.2 - Polycystic ovarian syndrome, E50.9 - Vitamin A deficiency, unspecified, E53.8 - Deficiency of other specified B group vitamins, E55.9 - Vitamin D deficiency, unspecified, E66.09 - Other obesity due to excess calories, E66.9 - Obesity, unspecified, K74.00 - Hepatic fibrosis, unspecified, L68.0 - Hirsutism, R16.0 - Hepatomegaly, not elsewhere classified, R79.89 - Other specified abnormal findings of blood chemistry, Z68.35 - Body mass index [BMI] 35.0-35.9, adult Lipid Panel Today E28.2 - Polycystic ovarian syndrome, E50.9 - Vitamin A deficiency, unspecified, E53.8 - Deficiency of other specified B group vitamins, E55.9 - Vitamin D deficiency, unspecified, E66.09 - Other obesity due to excess calories, E66.9 - Obesity, unspecified, K74.00 - Hepatic fibrosis, unspecified, L68.0 - Hirsutism, R16.0 - Hepatomegaly, not elsewhere classified, R79.89 - Other specified abnormal findings of blood chemistry, Z68.35 - Body mass index [BMI] 35.0-35.9, adult PTHI Today E28.2 - Polycystic ovarian syndrome, E50.9 - Vitamin A deficiency, unspecified, E53.8 - Deficiency of other specified B group vitamins, E55.9 - Vitamin D deficiency, unspecified, E66.09 - Other obesity due to excess calories, E66.9 - Obesity, unspecified, K74.00 - Hepatic fibrosis, unspecified, L68.0 - Hirsutism, R16.0 - Hepatomegaly, not elsewhere classified, R79.89 - Other specified abnormal findings of blood chemistry, Z68.35 - Body mass index [BMI] 35.0-35.9, adult TSH reflex Free T4 Today E28.2 - Polycystic ovarian syndrome, E50.9 - Vitamin A deficiency, unspecified, E53.8 - Deficiency of other specified B group vitamins, E55.9 - Vitamin D deficiency, unspecified, E66.09 - Other obesity due to excess calories, E66.9 - Obesity, unspecified, K74.00 - Hepatic fibrosis, unspecified, L68.0 - Hirsutism, R16.0 - Hepatomegaly, not elsewhere classified, R79.89 - Other specified abnormal findings of blood chemistry, Z68.35 - Body mass index [BMI] 35.0-35.9, adult Vitamin A Today E28.2 - Polycystic ovarian syndrome, E50.9 - Vitamin A deficiency, unspecified, E53.8 - Deficiency of other specified B group vitamins, E55.9 - Vitamin D deficiency, unspecified, E66.09 - Other obesity due to excess calories, E66.9 - Obesity, unspecified, K74.00 - Hepatic fibrosis, unspecified, L68.0 - Hirsutism, R16.0 - Hepatomegaly, not elsewhere classified, R79.89 - Other specified abnormal findings of blood chemistry, Z68.35 - Body mass index [BMI] 35.0-35.9, adult Vitamin B1 Today E28.2 - Polycystic ovarian syndrome, E50.9 - Vitamin A deficiency, unspecified, E53.8 - Deficiency of other specified B group vitamins, E55.9 - Vitamin D deficiency, unspecified, E66.09 - Other obesity due to excess calories, E66.9 - Obesity, unspecified, K74.00 - Hepatic fibrosis, unspecified, L68.0 - Hirsutism, R16.0 - Hepatomegaly, not elsewhere classified, R79.89 - Other specified abnormal findings of blood chemistry, Z68.35 - Body mass index [BMI] 35.0-35.9, adult Vitamin D 25-OH Total Today E28.2 - Polycystic ovarian syndrome, E50.9 - Vitamin A deficiency, unspecified, E53.8 - Deficiency of other specified B group vitamins, E55.9 - Vitamin D deficiency, unspecified, E66.09 - Other obesity due to excess calories, E66.9 - Obesity, unspecified, K74.00 - Hepatic fibrosis, unspecified, L68.0 - Hirsutism, R16.0 - Hepatomegaly, not elsewhere classified, R79.89 - Other specified abnormal findings of blood chemistry, Z68.35 - Body mass index [BMI] 35.0-35.9, adult Zinc Today E28.2 - Polycystic ovarian syndrome, E50.9 - Vitamin A deficiency, unspecified, E53.8 - Deficiency of other specified B group vitamins, E55.9 - Vitamin D deficiency, unspecified, E66.09 - Other obesity due to excess calories, E66.9 - Obesity, unspecified, K74.00 - Hepatic fibrosis, unspecified, L68.0 - Hirsutism, R16.0 - Hepatomegaly, not elsewhere classified, R79.89 - Other specified abnormal findings of blood chemistry, Z68.35 - Body mass index [BMI] 35.0-35.9, adult Prothrombin Time INR Today E28.2 - Polycystic ovarian syndrome, E50.9 - Vitamin A deficiency, unspecified, E53.8 - Deficiency of other specified B group vitamins, E55.9 - Vitamin D deficiency, unspecified, E66.09 - Other obesity due to excess calories, E66.9 - Obesity, unspecified, K74.00 - Hepatic fibrosis, unspecified, L68.0 - Hirsutism, R16.0 - Hepatomegaly, not elsewhere classified, R79.89 - Other specified abnormal findings of blood chemistry, Z68.35 - Body mass index [BMI] 35.0-35.9, adult Partial Thromboplastin Time Today E28.2 - Polycystic ovarian syndrome, E50.9 - Vitamin A deficiency, unspecified, E53.8 - Deficiency of other specified B group vitamins, E55.9 - Vitamin D deficiency, unspecified, E66.09 - Other obesity due to excess calories, E66.9 - Obesity, unspecified, K74.00 - Hepatic fibrosis, unspecified, L68.0 - Hirsutism, R16.0 - Hepatomegaly, not elsewhere classified, R79.89 - Other specified abnormal findings of blood chemistry, Z68.35 - Body mass index [BMI] 35.0-35.9, adult Complete Blood Count Auto Diff Today E28.2 - Polycystic ovarian syndrome, E50.9 - Vitamin A deficiency, unspecified, E53.8 - Deficiency of other specified B group vitamins, E55.9 - Vitamin D deficiency, unspecified, E66.09 - Other obesity due to excess calories, E66.9 - Obesity, unspecified, K74.00 - Hepatic fibrosis, unspecified, L68.0 - Hirsutism, R16.0 - Hepatomegaly, not elsewhere classified, R79.89 - Other specified abnormal findings of blood chemistry, Z68.35 - Body mass index [BMI] 35.0-35.9, adult Medications: New 2 polyethylene glycol 3350 (Miralax) Take 7 packets 2 days before surgery and 7 packets 1 day before surgery. Mix each packet with 8 oz's of water before surgery. 14 packets 0RF ondansetron HCl 4 mg PO Q6H PRN 20 tabs 0RF nausea and vomiting pantoprazole 40 mg PO QAM 30 days 30 tabs 2RF sucralfate 10 mL PO BID 30 days 600 mL 2RF acetaminophen 500 mg (15 mL) PO Q6H PRN 237 mL 2RF fever or pain Coding Level of Care Code Est Pt Level 4 (00461) Diagnoses Class 2 obesity due to excess calories with body mass index (BMI) of 35.0 to 35.9 in adult E66.09; Z68.35 Hepatomegaly R16.0 Liver fibrosis K74.00 PCOS (polycystic ovarian syndrome) E28.2 Hirsutism L68.0 Vitamin D deficiency E55.9 Vitamin B12 deficiency E53.8 Vitamin A deficiency E50.9 Abnormal LFTs R79.89 Obesity (BMI 30-39.9) E66.9
[2022-10-16 09:13] VITALS: BP 135/92; PULSE 77; TEMP 36.9; O2SAT 98; BMI 35.8
== END 2022-10-16 09:54 | disposition home or self-care (01) ==
PROVIDERS: PCP Internal Medicine; Visit Provider Surgery
DX: E66.09 Other obesity due to excess calories (principal); Z68.35 Body mass index [BMI] 35.0-35.9, adult; R16.0 Hepatomegaly, not elsewhere classified; K74.00 Hepatic fibrosis, unspecified; E28.2 Polycystic ovarian syndrome; L68.0 Hirsutism; E55.9 Vitamin D deficiency, unspecified; E53.8 Deficiency of other specified B group vitamins; E50.9 Vitamin A deficiency, unspecified; R79.89 Other specified abnormal findings of blood chemistry; E66.9 Obesity, unspecified
CPT/HCPCS: 99214

== ENCOUNTER → 2022-10-16 08:59 | Outpatient (BNVA) | payer MEDICAID, SELFPAY | PROVIDERS: PCP Internal Medicine; Visit Provider Surgery | DX: E66.09 Other obesity due to excess calories (principal); R16.0 Hepatomegaly, not elsewhere classified; K74.00 Hepatic fibrosis, unspecified; E28.2 Polycystic ovarian syndrome; L68.0 Hirsutism; E55.9 Vitamin D deficiency, unspecified; E53.8 Deficiency of other specified B group vitamins; E50.9 Vitamin A deficiency, unspecified; R79.89 Other specified abnormal findings of blood chemistry; Z68.35 Body mass index [BMI] 35.0-35.9, adult | CPT/HCPCS: 99212 ==

== ENCOUNTER 2022-10-18 10:00 | Outpatient (AMB) | payer MEDICAID, SELFPAY ==
--- NOTE | 2022-10-18 10:11 | MHC.OFFVISWM ---
Intake Intake Visit Reasons: VIDEO Pre Op LSG 10/31/22 Allergies Seasonal Allergies Allergy (Severe, Verified 10/16/22 09:10) Anaphylaxis Medication List - Last Reconciled 10/18/22 by Sheila Dutton PA-C acetaminophen 500 mg (15 mL) PO Q6H PRN cholecalciferol (vitamin D3) 25 mcg PO DAILY norethindrone (contraceptive) 0.35 mg PO DAILY ondansetron HCl 4 mg PO Q6H PRN pantoprazole 40 mg PO QAM 30 days polyethylene glycol 3350 (Miralax) Take 7 packets 2 days before surgery and 7 packets 1 day before surgery. Mix each packet with 8 oz's of water before surgery. sucralfate 10 mL PO BID 30 days venlafaxine ER 75 mg PO DAILY HPI HPI Comments History of Present Illness Details Will be having LSG on 10/[address] Baires. Has not been exercising or using her meal plan as she had been. She understands that these lifestyle changes are for life. Sleep 11pm - 6 am Will restart today --6 d/week - will run for an hour 8am - shake-- missed today 12pm - shake or hb eggs or cc 4pm- shake 7 pm protein and veg PFSH Medical History Abdominal bloating BMI 34.0-34.9,adult BMI 36.0-36.9,adult BMI 38.0-38.9,adult Metrorrhagia Obesity (BMI 30-39.9) Vitamin A deficiency Vitamin B12 deficiency Vitamin D deficiency Surgical History History of tonsillectomy and adenoidectomy Hx of colonoscopy Hx of wisdom tooth extraction Family History Mother Hypertension Father Diabetes Kidney disease Blindness Brother No problems noted. Brother No problems noted. Brother No problems noted. Sister No problems noted. Sister No problems noted. Son Depression Daughter No problems noted. Social History Alcohol intake: current Alcohol intake frequency: holidays/special occasions only Patient Tobacco Use Status: Former Tobacco user Years Smoked: socially only Female Reproductive History Menstrual Age of Menarche: 14 Assessment & Plan Assessment & Plan (1) Morbid obesity: Code(s): E66.01 - Morbid (severe) obesity due to excess calories Plan: Will start her liquid diet plan today. Plan is being emailed to her today. We had a lenghty discussion about being in control and other methods of self care. 4 shakes - 8am/12pm, 4pm and 7pm. May have 20 gram protien water also. Will restart running today, Has a weigh in scheduled. Telehealth Telehealth Location of provider rendering services: practice address Location of patient: address on file Patient Identification confirmed using: Name, : Yes Telehealth method: voice only (no video connection) Patient verbally consented to treatment: Yes Patient verbally consented to billing insurance company: Yes Patient informed of any privacy concerns related to visit: Yes Coding Level of Care Code Tele Est Pt Level 3 (23258) Diagnoses Morbid obesity E66.01
== END 2022-10-18 10:34 | disposition home or self-care (01) ==
LOC: HO.HBS 10:34
PROVIDERS: PCP Internal Medicine; Visit Provider Physician Assistant
DX: E66.01 Morbid (severe) obesity due to excess calories (principal)
CPT/HCPCS: 99213

== ENCOUNTER → 2022-10-18 10:00 | Outpatient (BNVA) | payer MEDICAID, SELFPAY | PROVIDERS: PCP Internal Medicine; Visit Provider Physician Assistant | DX: E66.01 Morbid (severe) obesity due to excess calories (principal) ==

== ENCOUNTER 2022-10-23 11:13 | Outpatient (AMB) | payer MEDICAID, SELFPAY ==
--- NOTE | 2022-10-23 11:24 | MHC.OFFVIS ---
Intake Intake Visit Reasons: TV ultra sound follow up/DO NOT RS [place] Required: No Information Interpreted: non-clinical & clinical Allergies Seasonal Allergies Allergy (Severe, Verified 10/23/22 11:24) Anaphylaxis Medication List - Last Reconciled 10/23/22 by Ysabel Jordan CNM acetaminophen 500 mg (15 mL) PO Q6H PRN cholecalciferol (vitamin D3) 25 mcg PO DAILY norethindrone (contraceptive) 0.35 mg PO DAILY ondansetron HCl 4 mg PO Q6H PRN pantoprazole 40 mg PO QAM 30 days polyethylene glycol 3350 (Miralax) Take 7 packets 2 days before surgery and 7 packets 1 day before surgery. Mix each packet with 8 oz's of water before surgery. sucralfate 10 mL PO BID 30 days venlafaxine ER 75 mg PO DAILY HPI TV ultra sound follow up/DO NOT RS HPI Details This is a tele visit to discuss patient's ultrasound and other test results and issues around PCOS and her irregular menses and her journey towards dealing with all of these issues. She finally got a very heavy. A couple of weeks ago. She has been working very hard on weight loss and she is planning gastric sleeve surgery with Dr. Della Montes in early October. And she is very much looking forward to that and to continuing to lose weight and get healthier.. She had planned on getting a Mirena IU S for prevention but had a discussion with him and he recommend putting it off until after surgery so that there was no increased concern about blood clotting issues. So I did review with her how she is protecting herself from and reiterated the importance of not having the possibility of before she enters into surgery or even post surgical life. Discussed abstinence and condoms if not. She also had questions about the Gardnerella which she saw on the appt but she knows she was treated for bacterial vaginosis but wanted to discuss the connection between the 2 she had a history of another STI as well in the past and so the words were somewhat conflated for her and she had concerns. I reviewed the positive Gardnerella and its treatment with the Flagyl p.o. b.i.d. which is what she did for 7 days and that it is not the same as gonorrhea and also that since it is sometimes referred to as bacterial vaginosis but the actual test that the test looks for is called Gardnerella. Discussed the BV is actually a syndrome that relates to the symptoms of a creamy coaty discharge that can cause some itching and discomfort and a fishy odor. Discussed her ultrasound in great detail while there are no completely clear markers for PCOS it is possible that some of the tiny cysts and calcifications in her left ovary might be a marker of past and anovulatory cycles but it is very difficult to say. Also discussed the prominent pelvic varices and that it is difficult to say whether not this is related to being overweight which was her question or is it something that is just how she is anatomically inside. Discussed that this is a finding that is appearing on ultrasounds more in these days and that is some women seek out treatment with Interventional Radiology. FOR[facility]LY [facility] Medical History Abdominal bloating BMI 34.0-34.9,adult BMI 36.0-36.9,adult BMI 38.0-38.9,adult Metrorrhagia Obesity (BMI 30-39.9) Vitamin A deficiency Vitamin B12 deficiency Vitamin D deficiency Surgical History History of tonsillectomy and adenoidectomy Hx of colonoscopy Hx of wisdom tooth extraction Family History Mother Hypertension Father Diabetes Kidney disease Blindness Brother No problems noted. Brother No problems noted. Brother No problems noted. Sister No problems noted. Sister No problems noted. Son Depression Daughter No problems noted. Social History Alcohol intake: current Alcohol intake frequency: holidays/special occasions only Patient Tobacco Use Status: Former Tobacco user Years Smoked: socially only Female Reproductive History Menstrual Age of Menarche: 14 Results Reviewed Results Reviewed: Patient: Mary Jo Marin MR#: [id number] : 1985 Acct:[id number] Age/Sex: 37 / F ADM Date: 08/14/22 Loc: HO.US Attending Dr: Ysabel Jordan CNM Ordering Physician: Ysabel Jordan CNM Date of Service: 08/14/22 Procedure(s): US pelvic and transvaginal Accession Number(s): [id number] cc: Ysabel Jordan CNM~ EXAMINATION:? US PELVIS AND TRANSVAGINAL CLINICAL INFORMATION:? Screening for cervical cancer. COMPARISON: CT abdomen and pelvis 12/17/2015, pelvic ultrasound 06/07/2012. TECHNIQUE: Ultrasound of the pelvis is performed using both transabdominal and transvaginal transducers along with Doppler. Transvaginal imaging is performed due to inadequate visualization transabdominally. FINDINGS: Uterus: The uterus is anteverted and retroflexed [id number] x 5.5 x 6.4 cm. The double wall endometrial thickness is 0.6 mm.? The uterus is smooth in contour and has normal myometrial echogenicity. ?There is a small 1.2 cm rounded submucosal fibroid. Adnexa: Both ovaries are visualized. There is normal color flow to the adnexa. There is no ovarian torsion. There is no pelvic ascites or fluid collection. Right ovary measures 3.3 x 2.7 x 2.6 cm for a volume of 12.1 mL and appears unremarkable. Left ovary measures 3.7 x 3.5 x 3.6 cm for a volume of 24.4 mL and includes some tiny cysts with a few areas of echogenicity with question of calcification. This appears significantly improved when compared to the prior ultrasound from 2012.? Prominent pelvic varices are noted. On the prior CT scan, the ovarian veins were mildly dilated and pelvic varices were seen. US/US pelvic and transvaginal IMPRESSION: 1. Small 1.2 cm submucosal fibroid. ? 2. Tiny cysts in the left ovary with question of calcification. This appears significantly improved when compared to the prior ultrasound. ? 3. Prominent pelvic varices. ? Dictated By: Manoj Anne MD Signed By: <Electronically signed by Manoj Anne MD in OV> 08/17/22 2100 DD/ 1410 TD/TT:? Customer Service Coordinator: SS Assessment & Plan Assessment & Plan (1) PCOS (polycystic ovarian syndrome): Code(s): E28.2 - Polycystic ovarian syndrome (2) Class 2 obesity due to excess calories with body mass index (BMI) of 35.0 to 35.9 in adult: Code(s): E66.09 - Other obesity due to excess calories; Z68.35 - Body mass index [BMI] 35.0-35.9, adult (3) Counseling for control, intrauterine device: Code(s): Z30.09 - Encounter for other general counseling and advice on contraception (4) Abnormal uterine bleeding (AUB): Code(s): N93.9 - Abnormal uterine and vaginal bleeding, unspecified Plan This is a tele visit to discuss patient's ultrasound and other test results and issues around PCOS and her irregular menses and her journey towards dealing with all of these issues. She finally got a very heavy. A couple of weeks ago. She has been working very hard on weight loss and she is planning gastric sleeve surgery with Dr. Della Montes in early October. And she is very much looking forward to that and to continuing to lose weight and get healthier.. She had planned on getting a Mirena IU S for prevention but had a discussion with him and he recommend putting it off until after surgery so that there was no increased concern about blood clotting issues. So I did review with her how she is protecting herself from and reiterated the importance of not having the possibility of before she enters into surgery or even post surgical life. Discussed abstinence and condoms if not. She also had questions about the Gardnerella which she saw on the appt but she knows she was treated for bacterial vaginosis but wanted to discuss the connection between the 2 she had a history of another STI as well in the past and so the words were somewhat conflated for her and she had concerns. I reviewed the positive Gardnerella and its treatment with the Flagyl p.o. b.i.d. which is what she did for 7 days and that it is not the same as gonorrhea and also that since it is sometimes referred to as bacterial vaginosis but the actual test that the test looks for is called Gardnerella. Discussed the BV is actually a syndrome that relates to the symptoms of a creamy coaty discharge that can cause some itching and discomfort and a fishy odor. Discussed her ultrasound in great detail while there are no completely clear markers for PCOS it is possible that some of the tiny cysts and calcifications in her left ovary might be a marker of past and anovulatory cycles but it is very difficult to say. Also discussed the prominent pelvic varices and that it is difficult to say whether not this is related to being overweight which was her question or is it something that is just how she is anatomically inside. Discussed that this is a finding that is appearing on ultrasounds more in these days and that is some women seek out treatment with Interventional Radiology. Gradually did her on her efforts to lose weight and get healthier for all her good reasons. She is still considering Mirena IU S and will call when she gets a heavy menses discussed that it could possibly be very soon postoperatively but she does not get a period that frequent so she is not thinking will be that soon. Telehealth Telehealth Location of provider rendering services: practice address Location of patient: address on file Patient Identification confirmed using: Name, : Yes Telehealth method: voice only Patient verbally consented to treatment: Yes Patient verbally consented to billing insurance company: Yes Patient informed of any privacy concerns related to visit: Yes Coding Level of Care Code Tele Est Pt Level 3 (71734) Diagnoses PCOS (polycystic ovarian syndrome) E28.2 Class 2 obesity due to excess calories with body mass index (BMI) of 35.0 to 35.9 in adult E66.09; Z68.35 Counseling for control, intrauterine device Z30.09 Abnormal uterine bleeding (AUB) N93.9 Time Spent (min) 35 Comment 5 chart review/17 on phone with patient (declined video), 13 charting
== END 2022-10-23 12:53 | disposition home or self-care (01) ==
LOC: HO.HWS 11:13
PROVIDERS: PCP Internal Medicine; Visit Provider Advanced Practice Midwife
DX: E28.2 Polycystic ovarian syndrome (principal); E66.09 Other obesity due to excess calories; Z68.35 Body mass index [BMI] 35.0-35.9, adult; Z30.09 Encounter for other general counseling and advice on contraception; N93.9 Abnormal uterine and vaginal bleeding, unspecified
CPT/HCPCS: 99213

== ENCOUNTER → 2022-10-23 11:13 | Outpatient (BNVA) | payer MEDICAID, SELFPAY | PROVIDERS: PCP Internal Medicine; Visit Provider Advanced Practice Midwife ==

== ENCOUNTER 2022-10-31 06:06 | Inpatient (IN) | payer MEDICAID, SELFPAY ==
[2022-10-16 10:24] LABS: MANUAL DIFF FLAG NO
[2022-10-16 10:42] LABS: Basophils Percent Auto 0.5 % (0-2); Eosinophils Absolute Auto 0.1 X10*3/uL (0.0-0.4); Hematocrit 39.2 % (37.0-47.0); Hemoglobin 12.9 g/dl (12.0-16.0); Imm Gran Abs Auto 0.02 X10*3/uL (0.00-0.03); Imm Gran Pct Auto 0.3 % (0.0-0.4); Lymphocytes Absolute Auto 2.9 X10*3/uL (1.2-4.9); Lymphocytes Percent Auto 43.7 % (20-40); Mean Corpuscular HGB Conc 32.9 g/dl (31.0-35.0); Mean Corpuscular Hemoglobin 28.6 pg (27.0-33.0); Mean Corpuscular Volume 86.9 fL (80.0-98.0); Mean Platelet Volume 9.8 fL (9.4-12.3); Monocytes Absolute Auto 0.4 X10*3/uL (0.1-1.2); Monocytes Percent Auto 6.4 % (2-11); Neutrophils Absolute Auto 3.1 x10*3/uL (2.0-8.3); Neutrophils Percent Auto 47.1 % (45-73); Platelet Count 434 X10*3/uL (160-400); Red Blood Count 4.51 X10*6/uL (4.20-5.50); Red Cell Distribution Width 13.2 % (11.0-16.0); White Blood Count 6.6 X10*3/uL (4.8-10.8)
[2022-10-16 10:48] LABS: INTERNATIONAL NORM RATIO 0.9 (0.9-1.1)
[2022-10-16 10:50] LABS: Estimated Average Glucose 105 mg/dL; Hemoglobin A1c % 5.3 % (<6.0)
[2022-10-16 10:51] LABS: Partial Thromboplastin Time 26.8 SEC (26.0-36.4)
[2022-10-16 11:27] LABS: Alanine Aminotransferase 23 U/L (0-31); Albumin Level 4.1 g/dL (3.5-5.0); Alkaline Phosphatase 64 U/L (39-117); Anion Gap 11 (12-20); Aspartate Amino Transferase 17 U/L (5-31); Bilirubin Total 0.2 mg/dL (0.0-1.0); Blood Urea Nitrogen 13 mg/dL (9-16); C Reactive Protein 0.63 mg/dL (< or = 0.50); Calcium 9.3 mg/dL (8.4-10.2); Carbon Dioxide 24 mmol/L (22-29); Chloride 108 mmol/L (96-108); Cholesterol 182 mg/dL (<200); Estimated Glomerular Filt Rate > 60; Glucose Random 91 mg/dL (60-115); HDL Cholesterol 42 mg/dL (>40); Iron 42 mcg/dL (30-160); LDL Cholesterol Calculated 126 mg/dL (<100); Percent Iron Saturation 13 % (15-50); Potassium 4.3 mmol/L (3.3-5.1); Sodium 139 mmol/L (135-145); Total Iron Binding Capacity 320 mcg/dL (228-428); Total Protein 7.6 g/dL (6.5-8.0); Triglycerides 72 mg/dL (<150); Unsaturated Iron Binding 278 ug/dL
[2022-10-16 11:44] LABS: Vitamin B12 396 pg/mL (200-900)
[2022-10-16 11:45] LABS: Ferritin 45 ng/mL (10-122); Vitamin D 25-OH Total 32.5 ng/mL (>30)
[2022-10-18 10:48] LABS: Calcium (PTHI) 9.1 mg/dL (8.6-10.2); PTHI 45 pg/mL (16-77)
[2022-10-19 17:33] LABS: Zinc 82 mcg/dL (60-130)
[2022-10-19 18:48] LABS: Vitamin A 31 mcg/dL (38-98)
[2022-10-22 11:52] LABS: Vitamin B1 9 nmol/L (8-30)
[2022-10-23 11:23] VITALS: BMI 35.5
--- NOTE | 2022-10-30 16:17 | MHC.SHP ---
Pre-Procedural Eval Section A Date of Service: 10/30/22 The patient is an INPATIENT: Yes The History & Physical has been completed within 30 days and I have reviewed it.: Yes Section B Chief Complaint: Morbid (severe) obesity due to excess calories Allergies: Allergies Allergy/AdvReac Type Severity Reaction Status Date / Time Seasonal Allergies Allergy Severe Anaphylaxis Verified 10/23/22 11:24 Plan I have reviewed the history and physical and performed a pertinent physical examination on my patient. No changes have occurred unless specified. Time Spent With Patient Time: Total time managing care of this patient today ____ minutes.
[2022-10-31] VITALS (11 sets, daily range): BP systolic 115–139; BP diastolic 66–82; PULSE 72–94; RESP 12–20; TEMP 36.3–37.1; O2SAT 93–99; BMI 34.4
[2022-10-31 06:44] LABS: UPreg QC Valid YES; Urine Pregnancy NEGATIVE (NEGATIVE)
--- NOTE | 2022-10-31 06:55 | P.OP_ITS ---
Operative Note Operative Note Date of Service: 10/31/22 Narrative: Preop diagnosis: [Class 2 obesity, related comorbidities include hepatomegaly, NAFLD, liver fibrosis, PCOS] Postop diagnosis: [same, hiatal hernia] Procedure: [] Surgeon: Wilson Baires MD Assist: [Sheila Dutton PA-C] Anesthesia: [GET, Marcaine, 0.5% with epi] Estimated blood loss: [10cc] Specimen: [Portion of stomach with fundus] Intraoperative findings: [Hiatal hernia requiring repair, hepatomegaly and N AFLD] Indications: [The patient is a 37-year-old woman with a lifelong struggle with obesity who presents for consideration of surgical weight loss.? On 05/23/2022 during a weight check, the patient presented with a height 5ft 7in and weight 255.2 lbs - using NIH BMI calculator her BMI is 40.? The patient has had a lifelong struggle with her weight and tried numerous fad diets as well as portion control.? She is had demonstrated weight loss with healthy lifestyle changes and is interested in a definitive treatment option, specifically, laparoscopic sleeve gastrectomy. The option of ongoing medical treatment was reviewed but declined. I reviewed the inherent risks of this procedure which include, but are not limited to:? Bleeding that could require another operation or blood transfusion; the inherent risks of transfusion reaction infectious disease from blood transfusions; the risk of staple line leaks that could cause sepsis, multi-system organ failure and ; the risk of mesenteric or deep vein thrombosis of the lower extremities that could cause a fatal pulmonary embolism was reviewed; the risk of GERD that could require conversion to gastric bypass was discussed; the risk of recurrent hiatal hernia, especially in the setting of weight regain was reviewed.? The risk of weight regain if maladaptive eating and sedentary behavior continue was discussed.? The importance of proper diet and increased activity to augment surgical weight loss and the fact that no operation would result in weight loss of poor dietary decisions and sedentary behavior are resumed were discussed at length and apparently understood.? The patient had the option of having a director regulatory agency present and declined this option. The patient seemed understand all of her options, her questions seemed to be satisfactorily answered and she wanted to proceed.] Procedure: [The patient was identified in the preoperative holding area and again an operating room 6 by myself and the team. The patient was placed supine on the operating table. The patient's abdomen was then widely prepped and draped in the usual manner for surgery using Chlorprep. Antibiotics per protocol Ancef, 2gm IV on-call) were administered by Anesthesia. The pt voided her bladder geospatial information scientist to surgery. SCDs were utilized. Safety straps were utilized and a footboard utilized. The patient was induced in general endotracheal anesthesia administered with excellent effect. An appropriate time-out was performed. After infiltrating preemptive local in the skin and subcutaneous tissues in the left subcostal space, a stab incision was made sharply and the Veress needle inserted without incident. Appropriate drop test was performed then a pneumoperitoneum of 15 mmHg was obtained using carbon dioxide. Opening pressures were 7 mm Hg. Preemptive local was used at all trocar insertion sites and I began in the epigastric midline 10 cm from the xiphoid. A transverse incision was made. Next, a 5 mm 0 degree scope over a 5 mm Optiview trocar was used to access the abdomen in the in the midline of the epigastrium approximately 10 cm from the xiphoid. Upon entering, the obturator was removed and the abdomen explored. There was no evidence of injury from the Veress needle in it was removed. The bowel and deep structures were examined for injury from the trocar and none identified. The scope was then switched to a 5 mm 45 degree scope. Next, using preemptive local, additional 5 mm trocars were placed under direct laparoscopic vision and the 5 mm midline trocar upsized to a 12 mm to accommodate the stapler. The patient was then positioned in reverse Trendelenburg and the liver retractor deployed through the right lateral 5 mm trocar and secured. The patient was noted to have an enlarged liver and NAFLD. The stomach was decompressed with a 40 [place] ViSiGi that was inserted per os by the anesthesiologist to the GE junction and then advanced into the stomach under direct laparoscopic vision. As the stomach was decompressed and the bougie withdrawn, a slight dimple was noted in the anterior phrenoesophageal ligament. Dissection was begun along the greater curvature using the 5 mm [place] LigaSu re for hemostasis. Dissection was then carried towards the pylorus to 3-4 cm from the pylorus and retro gastric adhesions lysed. The gastroesophageal fat pad was carefully mobilized taking care to avoid injury to the esophagus and stomach and dissection carried towards the short gastrics taking care to avoid injury to the spleen and splenic artery. As dissection was carried to the left nichole of the diaphragm, an obvious retroesophageal hernia was identified and as the gastroesophageal fat pad was taken down, the extent of the hernia was noted in required intraoperative repair. Dissection was carried from the left nichole of the diaphragm posteriorly. Next, the phrenoesophogeal memberane was open anterior and the pars flaccida opened to access the right nichole of the diaphragm. The esophagus was carefully preserved, mobilized & freed into the abdomen for 3cm by dissection carried into the mediastinum. The esophagus was then surrounded with a quarter-inch [place] drain and retracted anteriorly to facilitate posterior repair. Posterior dissection of the retroesophageal area was performed to demonstrate both crurae and hiatal hernia repair was performed using 1 (one) 0 silk sutures with posterior repair with the [address] in the esophagus to assess for closure. Once the hiatal hernia was repaired, the plan to proceed with a stapled sleeve gastrectomy continued. Next, the 40 [place] ViSiGi bougie was advanced by anesthesiologist under direct vision and laparoscopic guidance and positioned in the antrum using laparoscopic graspers to serve as a guide for a stapled sleeve gastrectomy. Stapling was performed with Sentrix power Endo-CHUN stapler with a purple 45 and then 45 and 60 purple loads. The 10 mm clip transportation mechanic was used to apply additional clips to the staple line. Care was taken to be sure that the sleeve laid flat and was without stricture. Once the sleeve was complete, the portion of stomach was placed in the lower abdomen to be sent for permanent section. The staple line, gastrocolic omentum, spleen and short gastric areas were all inspected for hemostasis which was found to be good. The lavage tube was withdrawn under laparoscopic vision. The bougie was then removed. After inspecting again for hemostasis, a gastropexy was performed using 2-0 Polysorb suture to secure the sleeve gastrectomy to the gastrocolic omentum with intracorporeal suture technique. Next, I broke scrub perform an on-table upper endoscopy to assess the sleeve and the esophagus and stomach. The patient was returned to neutral position and the Olympus 160 gastroscope was advanced taking care to preserve the endotracheal tube. The esophagus was intubated without incident. Minimal air was insufflated and the scope advanced into the newly formed sleeve. The staple line was inspected for hemostasis and the morphology of the sleeve appeared straight with a uniform diameter. Intraoperatively, there was no evidence of staple line leak as my management assistant instilled sterile saline into the operative field via endoscope. The scope was then used to aspirate the air from the sleeve withdrawn and removed. I then rescrubbed to return to the operative field and again inspected the field for hemostasis. The patient was again placed in reverse Trendelenburg. After final assessment for hemostasis, the patient was returned to neutral position, a Diandra used to withdraw the stomach which was sent for permanent section. The fascia of the 12 mm midline was closed using an 0 Polysorb figure of 8 on a suture passer under direct laparoscopic vision. The abdomen was then deflated and all trocars removed. The suture was then tied and the skin closed with 4-0 Monocryl subcuticular sutures. The abdomen was then washed and dried, benzoin and Steri-Strips, 2x2s & Tegaderms. The patient tolerated the procedure well was then extubated and sent to PACU in stable condition. All sponge needle and instrument counts were correct x2. At the patient's request, I contacted her David at [phone] to apprise him of the operation and findings, the HHR & typical post-op plan. His questions seemed to be satisfactorily answered. ]
[2022-10-31] MEDS: Lactated Ringers 1,000 ML 150 ML IVCONT (07:08)
--- NOTE | 2022-10-31 07:15 | P.CONAN_ITS ---
Documented by User: Geno Butt NP 10/30/22 09:03 HPI - Anesthesia Eval Consult details Narrative: 37yo F for Gastrectomy Sleeve Egd, poss diaphragmatic hernia, poss Ventral hernia,poss open PMFSH Active Problems Active Problems: All Active Problems (Updated 10/08/22 @ 09:20 by Wilson Baires MD) PCOS (polycystic ovarian syndrome) (Acute) Liver fibrosis (Acute) Hepatomegaly (Acute) Class 2 obesity due to excess calories with body mass index (BMI) of 35.0 to 35.9 in adult (Acute) BMI 35.0-35.9,adult (Acute) Counseling for control, intrauterine device (Acute) BCP ( control pills) initiation (Acute) Hirsutism (Acute) Abnormal uterine bleeding (AUB) (Acute) Anxiety (Acute) Pre-op evaluation (Acute) Morbid obesity (Acute) Gonorrhea (Acute) Cervical cancer screening (Acute) Potential exposure to STD (Acute) Recurrent HSV (herpes simplex virus) (Acute) Well woman exam with routine gynecological exam (Acute) Abnormal LFTs (Acute) Obesity (BMI 30-39.9) (Acute) BMI 34.0-34.9,adult (Acute) Vitamin A deficiency (Acute) Abdominal bloating (Acute) BMI 36.0-36.9,adult (Acute) Vitamin D deficiency (Acute) Vitamin B12 deficiency (Acute) BMI 38.0-38.9,adult (Acute) Metrorrhagia (Acute) Past Medical History Medical History Abdominal bloating BMI 34.0-34.9,adult BMI 36.0-36.9,adult BMI 38.0-38.9,adult Metrorrhagia Obesity (BMI 30-39.9) Vitamin A deficiency Vitamin B12 deficiency Vitamin D deficiency Family History Family History Mother Hypertension Father Diabetes Kidney disease Blindness Brother No problems noted. Brother No problems noted. Brother No problems noted. Sister No problems noted. Sister No problems noted. Son Depression Daughter No problems noted. Family history of problems with anesthesia: No Surgical History Surgical History History of tonsillectomy and adenoidectomy Hx of colonoscopy Hx of wisdom tooth extraction History of Problems with Anesthesia: No Social History Social History Are you a primary care center manager to a significant other at home: No Do you presently have visiting nurse or other home services: No Alcohol intake: current Alcohol intake frequency: holidays/special occasions only Patient Tobacco Use Status: Former Tobacco user Years Smoked: socially only Use of substances other than those prescribed or required for medical reasons: No Have you been hit, kicked, punched, or otherwise hurt by someone within the past year? If so, by whom?: No Advance Directives: No Advance Directives Information Provided: No Advance Directives on File: No Recently lost weight without trying: No Eating poorly because of decreased appetite: No Nutrition Risks: No Nutritional Risk Patient : No : No Poor oral hygiene: No Meds Allergies Allergy/AdvReac Type Severity Reaction Status Date / Time Seasonal Allergies Allergy Severe Anaphylaxis Verified 10/23/22 11:24 Home Medications Medication Instructions Recorded Confirmed Last Taken Type venlafaxine 75 mg capsule,extended 75 mg PO DAILY 10/13/21 10/31/22 10/30/22 History release 24 hr Exam Exam Date and Time: October 30, 2022 0902 Height,Weight and Vital Signs: Height 5 ft 6 in Weight 99.79 kg Pertinent Lab Results Pertinent Lab Results: Laboratory Tests 10/16/22 10/16/22 10/16/22 10:07 10:22 10:22 WBC 6.6 RBC 4.51 Hgb 12.9 Hct 39.2 MCV 86.9 MCH 28.6 MCHC 32.9 RDW 13.2 Plt Count 434 H MPV 9.8 Immature Gran % (Auto) 0.3 Neut % (Auto) 47.1 Lymph % (Auto) 43.7 H Whiteside % (Auto) 6.4 Eos % (Auto) 2.0 Baso % (Auto) 0.5 Lymph # (Auto) 2.9 Whiteside # (Auto) 0.4 Eos # (Auto) 0.1 Baso # (Auto) 0.0 Abs Immat Gran (auto) 0.02 Absolute Neuts (auto) 3.1 Absolute Nucleated RBC 0.000 Nucleated RBC % (auto) 0.0 PT 11.0 L INR 0.9 APTT 26.8 Sodium Potassium Chloride Carbon Dioxide Anion Gap BUN Creatinine Estim Creat Clear Calc Estimated GFR Random Glucose Estimat Average Glucose Hemoglobin A1c % Calcium Iron TIBC % Saturation Unsat Iron Binding Ferritin Total Bilirubin AST ALT Alkaline Phosphatase C-Reactive Protein Total Protein Albumin Triglycerides Cholesterol LDL Cholesterol, Calc HDL Cholesterol Vitamin A Vitamin B1 Vitamin B12 25-OH Vitamin D Total TSH PTH Intact Calcium (PTH Intact) Zinc Blood Type A Positive Antibody Screen NEGATIVE 10/16/22 10/16/22 10/16/22 10: 10:22 10:22 WBC RBC Hgb Hct MCV MCH MCHC RDW Plt Count MPV Immature Gran % (Auto) Neut % (Auto) Lymph % (Auto) Whiteside % (Auto) Eos % (Auto) Baso % (Auto) Lymph # (Auto) Whiteside # (Auto) Eos # (Auto) Baso # (Auto) Abs Immat Gran (auto) Absolute Neuts (auto) Absolute Nucleated RBC Nucleated RBC % (auto) PT INR APTT Sodium 139 Potassium 4.3 Chloride 108 Carbon Dioxide 24 Anion Gap 11 L BUN 13 Creatinine 0.61 Estim Creat Clear Calc TNP Estimated GFR > 60 Random Glucose 91 Estimat Average Glucose 105 Hemoglobin A1c % 5.3 Calcium 9.3 Iron 42 TIBC 320 % Saturation 13 L Unsat Iron Binding 278 Ferritin 45 Total Bilirubin 0.2 AST 17 ALT 23 Alkaline Phosphatase 64 C-Reactive Protein 0.63 H Total Protein 7.6 Albumin 4.1 Triglycerides 72 Cholesterol 182 LDL Cholesterol, Calc 126 H HDL Cholesterol 42 Vitamin A Vitamin B1 Vitamin B12 396 25-OH Vitamin D Total 32.5 TSH 1.60 PTH Intact Calcium (PTH Intact) Zinc Blood Type Antibody Screen 10/16/22 10/16/22 10/16/22 10:22 10:22 10:22 WBC RBC Hgb Hct MCV MCH MCHC RDW Plt Count MPV Immature Gran % (Auto) Neut % (Auto) Lymph % (Auto) Whiteside % (Auto) Eos % (Auto) Baso % (Auto) Lymph # (Auto) Whiteside # (Auto) Eos # (Auto) Baso # (Auto) Abs Immat Gran (auto) Absolute Neuts (auto) Absolute Nucleated RBC Nucleated RBC % (auto) PT INR APTT Sodium Potassium Chloride Carbon Dioxide Anion Gap BUN Creatinine Estim Creat Clear Calc Estimated GFR Random Glucose Estimat Average Glucose Hemoglobin A1c % Calcium Iron TIBC % Saturation Unsat Iron Binding Ferritin Total Bilirubin AST ALT Alkaline Phosphatase C-Reactive Protein Total Protein Albumin Triglycerides Cholesterol LDL Cholesterol, Calc HDL Cholesterol Vitamin A 31 L Vitamin B1 9 Vitamin B12 25-OH Vitamin D Total TSH PTH Intact 45 Calcium (PTH Intact) 9.1 Zinc 82 Blood Type Antibody Screen Narrative Narrative: EKG 06/2022 Vent. Rate : 086 BPM ? ? Atrial Rate : 086 BPM ?? P-R Int : 184 ms? QRS Dur : 086 ms ? ? QT Int : 368 ms ? ? ? P-R-T Axes : 036 030 038 degrees ?? QTc Int : 440 ms ? Normal sinus rhythm Normal ECG When compared to the previous EKG of No significant changes seen Assessment and Plan Assessment Anesthesia Assessment: Chart Reviewed Final Anesthetic Review Family History of Problems with Anesthesia: No History of Problems with Anesthesia: No Documented by User: Sun Martinez DO 10/31/22 07:20 HPI - Anesthesia Eval Consult details Narrative: 37yo F for Gastrectomy Sleeve, Egd, poss diaphragmatic hernia, poss Ventral hernia,poss open PMFSH Past Medical History Medical History Abdominal bloating BMI 34.0-34.9,adult BMI 36.0-36.9,adult BMI 38.0-38.9,adult Metrorrhagia Obesity (BMI 30-39.9) Vitamin A deficiency Vitamin B12 deficiency Vitamin D deficiency Functional capacity: independent ambulation Family History Family History Mother Hypertension Father Diabetes Kidney disease Blindness Brother No problems noted. Brother No problems noted. Brother No problems noted. Sister No problems noted. Sister No problems noted. Son Depression Daughter No problems noted. Family history of problems with anesthesia: No Surgical History Surgical History History of tonsillectomy and adenoidectomy Hx of colonoscopy Hx of wisdom tooth extraction History of Problems with Anesthesia: No Social History Social History Are you a primary care center manager to a significant other at home: No Do you presently have visiting nurse or other home services: No Alcohol intake: current Alcohol intake frequency: holidays/special occasions only Patient Tobacco Use Status: Former Tobacco user Years Smoked: socially only Use of substances other than those prescribed or required for medical reasons: No Have you been hit, kicked, punched, or otherwise hurt by someone within the past year? If so, by whom?: No Advance Directives: No Advance Directives Information Provided: No Advance Directives on File: No Recently lost weight without trying: No Eating poorly because of decreased appetite: No Nutrition Risks: No Nutritional Risk Patient : No : No Poor oral hygiene: No Meds Allergies Allergy/AdvReac Type Severity Reaction Status Date / Time Seasonal Allergies Allergy Severe Anaphylaxis Verified 10/23/22 11:24 Home Medications Medication Instructions Recorded Confirmed Last Taken Type venlafaxine 75 mg capsule,extended 75 mg PO DAILY 10/13/21 10/31/22 10/30/22 History release 24 hr Exam Exam Date and Time: November 01, 2022 0715 Height,Weight and Vital Signs: Height 5 ft 6 in Weight 99.79 kg Vital Signs Temperature 98.7 F 10/31/22 06:26 Pulse Rate 78 10/31/22 06:26 Respiratory Rate 18 10/31/22 06:26 Blood Pressure 118/82 10/31/22 06:26 Pulse Oximetry 97 10/31/22 06:26 Oxygen Delivery Method Room Air 10/31/22 06:26 Temperature 98.7 F 10/31/22 06:26 Pulse Rate 78 10/31/22 06:26 Respiratory Rate 18 10/31/22 06:26 Blood Pressure 118/82 10/31/22 06:26 Pulse Oximetry 97 10/31/22 06:26 Oxygen Delivery Method Room Air 10/31/22 06:26 Airway Mallampati Class: I TM Dist: >3cm Neck ROM: Full Loose/Missing/Broken Teeth: No Heart: S1S2 Lungs: CTAB Assessment and Plan Assessment Anesthesia Assessment: Anesthesia Plan Discussed and Chart Reviewed Final Anesthetic Review Family History of Problems with Anesthesia: No History of Problems with Anesthesia: No NPO: Yes ASA Class: II Final Preanesthetic Review: No Changes in Pt Med Stat, Meds/Allgs Chart Reviewed, Consent Obtained/Reviewed and Anes Risks/Benef Reviewed Patient Risk: Low Procedure Risk: Low Anesthetic Plan Anesthetic Plan: GA and Agree w/ Assess. and Plan Disposition: Standard PACU
[2022-10-31] MEDS: Aprepitant 32 MG/4.4 ML VIAL IVPUSH (07:24)
--- NOTE | 2022-10-31 07:31 | PHA.MEDREC ---
Pharmacy Consult ? Medication Reconciliation Pharmacy has completed the medication reconciliation.pharmacy has reviewed med rec done by nursing
[2022-10-31] MEDS: ceFAZolin Sodium/Dextrose,Iso 2 GM/50 ML PIGGYBACK IV ×2 (07:40→13:30)
[2022-10-31] MEDS: Acetaminophen 1,000 MG/100 ML PIGGYBACK 400 MG IV (08:15)
--- NOTE | 2022-10-31 10:36 | PM.DS ---
DS: Providers Provider Date of Service: 11/01/22 Date of admission: 10/31/22 06:06 Primary care physician: Stuart Garcia MD DS: Summary Hospital Course Hospital Course: ADMITTING DIAGNOSIS: morbid obesity, diaphragmatic hernia DISCHARGE DIAGNOSIS: same, s/p laparoscopic sleeve gastrectomy and repair diaphragmatic hernia PAST SURGICAL HISTORY: none PROCEDURE: upper endoscopy, laparoscopic sleeve gastrectomy and repair of diaphragmatic hernia hernia DISCHARGE SUMMARY: History of Present Illness: The patient is a 37 year-old woman with a BMI of 38.8 kg/m2 and associated co-morbidities as described above. The patient had extensive work-up, lost 26.9 lbs preoperatively and was electively scheduled for laparoscopic, possible open sleeve gastrectomy and gastropexy. Risks and complications of the surgery were discussed with the patient in advance, particularly the possibility of , pulmonary embolism, anastomotic leak, bleeding, bowel injury, GERD, cardiac, renal or pulmonary complications. The patient understood all the risks and was in agreement with the surgical plan. Hospital Course: The patient underwent an uneventful laparoscopic sleeve gastrectomy with gastropexy and repair of diaphragmatic hernia on the day of admission. Postoperatively, the patient was transferred to the surgical floor. The patient received IV Acetaminophen and IV dilaudid for pain control. Patient was started on bariatric phase 1 diet POD #0. On postoperative day one, the patient was feeling well without nausea, vomiting, fevers, or tachycardia. The patient had some mild incisional pain and the abdomen was soft. On the morning of postoperative day one, the patient was continued on 1 ounce of water or ice every half hour. During the day, the patient did fairly well, having some incisional pain, but able to ambulate adequately and to tolerate liquids well. Since the patient is doing well, we decided that the patient was ready to be discharged. The patient was given instructions to follow-up with me next week and to call my office for any fever over 101, persistent abdominal pain, nausea, vomiting, GERD, symptoms of DVT such as calf tenderness, or leg swelling, or pulmonary embolism such as chest pain or shortness of breath. The patient was also instructed to drink 40-60 ounces of liquids per day using the 1-ounce cups. The patient had been given prescriptions for Tylenol for pain, Zofran prn for nausea, and pantoprazole and carafate previously. The patient was encouraged to ambulate and use the incentive spirometer. The patient was allowed to shower, but no baths, and encouraged to stay active at home. All of these instructions were given to the patient personally. All questions were answered and the patient understood all instructions, the instructions were also given to the patient in print. Time Spent with Patient Time attestation: Total time managing care of this patient today ____ minutes. Discharge coordination time: Less than 30 minutes Quality: Safe Use of Opioids Does Pt have an Active Cancer Diagnosis on the Problem List?: No Quality: Stroke Does the patient have a stroke diagnosis?: No Physical Exam Vital Signs: Vital Signs: Last Vital Signs Temp 98.7 F 10/31/22 06:26 Pulse 78 10/31/22 06:26 Resp 18 10/31/22 06:26 BP 118/82 10/31/22 06:26 Pulse Ox 97 10/31/22 06:26 O2 Del Method Room Air 10/31/22 06:26 BMI result Body Mass Index 34.4 DS: Data Data Completed and Pending Pending studies at discharge: Pending at discharge 10/31/22 10:02 Surgical [PTH] Routine Labs on day of discharge: Laboratory Results - last 24 hr 10/31/22 06:07 Urine Test NEGATIVE Discharge Plan Discharge Anticipated Discharge Date/Time: 11/01/22 10:00 Patient Disposition: Home, Self-Care Discharge Diagnosis: s/p sleeve gastrectomy and hiatal hernia repair Referrals: Stuart Garcia MD [Primary Care Provider] - 1 Week Wilson Baires MD [Physician] - 1 Week Discharge Medications: Continued venlafaxine 75 mg capsule,extended release 24hr 75 mg PO DAILY ondansetron HCl 4 mg tablet 4 mg PO Q6H PRN (Reason: nausea and vomiting) Qty: 20 0RF pantoprazole 40 mg tablet,delayed release (DR/EC) 40 mg PO QAM 30 Days Qty: 30 2RF sucralfate 100 mg/mL suspension 10 ml PO BID 30 Days Qty: 600 2RF acetaminophen 500 mg/15 mL liquid 500 mg PO Q6H PRN (Reason: fever or pain) Qty: 237 2RF Discontinued cholecalciferol (vitamin D3) 25 mcg (1,000 unit) capsule 25 mcg PO DAILY Qty: 30 5RF Discharge Orders: Discharge Order (Routine); Ordered 11/01/22 Ordered By: Wilson Baires Diet: Bariatric diet Activity on Discharge: No heavy lifting Stand Alone Forms: Patient Portal Discharge page Care Plan Goals: weight loss Health Concerns: morbid obesity Plan of Treatment: 1. Please call your doctor or come back to the emergency room should any new symptoms arise. 2. Activity: You may shower. No tub baths, sex or returning to work until discussed at first post op appointment. No exercise, alcohol, tobacco or illegal drug use. 3. Diet: continue as discussed with bariatric team.. 4. Dressing Change/Wound Care: Do not change or remove surgical dressings unless they are wet or soiled. 5. Call your doctor if: - Your temperature exceeds 101.5 F - You experience excessive pain or swelling - You have an unexpected reaction to medication - You have excessive bleeding - You experience continued vomiting/nausea - Your incision begins to separate - Your incision shows signs of infection such as increased redness, swelling, excessive pain, heat, or drainage (light blood or clear fluid is normal) 6. Continue to use incentive spirometer hourly while awake. Walk in home for 5- 10 minutes every 2 hours during the first week. The patient's medical history has been reviewed and they are considered low risk for post op DVT and therefore DVT prophylaxis is not considered necessary. Travel after surgery was reviewed. The patient has not disclosed any travel plans during the first 30 days after surgery and they have been advised that within the first 30 days after surgery any bus, plane, train or car travel over 2 hours in duration is contraindicated due to the possibility of developing blood clots from immobility. Any travel, needs to include periods of ambulation of 10 minutes in duration every 2 hours. The patient was instructed to discuss any plans for travel during this period with their bariatric surgeon. 7. General instructions: No lifting greater than 5 lbs for 1 week and not more than 20lbs the next 3?weeks. No driving until seen at the office in 5-7 days after surgery. Please walk around your home every hour or two to prevent blood clots from forming in your legs. Please follow the post op diet instructions you are?given by the bariatric team.?If you have any issues or concerns or questions please call the office/answering service to speak with the bariatric provider strategic solutions consultant.? The Celebrate shakes have all of the bariatric vitamins that you need. If you are drinking other protein shakes, you will need to purchase the Celebrate multivitamins and calcium that are available in the hospital gift shop.??Do not take any new medications without first discussing this with the bariatric team. Please make sure you are consuming at least 40 ounces of fluids per day starting the?day AFTER your discharge from the hospital. Each one ounce cup represents 6 sips. If you drink faster you may experience?bloating,?gas pain, burping, nausea or heartburn. Do not hesitate to contact the office with any questions at . Assessment: stable, post op sleeve gastrectomy and hiatal hernia repair Discharge Date/Time: 11/01/22 10:51
[2022-10-31 10:50] LABS: Hematocrit 36.7 % (37.0-47.0); Hemoglobin 12.7 g/dl (12.0-16.0)
[2022-10-31 11:06] LABS: Anion Gap 12 (12-20); Blood Urea Nitrogen 14 mg/dL (9-16); Calcium 9.1 mg/dL (8.4-10.2); Carbon Dioxide 24 mmol/L (22-29); Chloride 107 mmol/L (96-108); Estimated Glomerular Filt Rate > 60; Glucose Random 156 mg/dL (60-115); Sodium 139 mmol/L (135-145)
--- NOTE | 2022-10-31 11:53 | P.PNGS_ITS ---
Subjective Subjective Date of Service: 10/31/22 Patient reports: nausea Interval history: Patient is seen on [place] [facility]. She was just up to try to urinate but is unable to and notes nausea with no vomiting. She is rather somnolent post op/post- anesthesia but denies any difficulty breathing or shortness of breath. Physical Exam Vital Signs: Vital Signs: Last Vital Signs Temp 98.7 F 10/31/22 10:55 Pulse 87 10/31/22 10:55 Resp 13 10/31/22 10:55 BP 132/75 10/31/22 10:55 Pulse Ox 98 10/31/22 10:55 O2 Del Method Nasal Cannula 10/31/22 10:55 O2 Flow Rate 2 10/31/22 10:55 BMI result Body Mass Index 34.4 Pt is non-toxic & somnolent She's in no acute respiratory distress Binder in place Objective Data Active Medications Famotidine (Famotidine/Pf 20 Mg/2 Ml Vial) 20 mg IVPUSH BID MISHA Hydromorphone HCl (Hydromorphone Hcl 0.5 Mg/0.5 Ml Syringe) 0.25 mg IVPUSH Q4H PRN; Protocol PRN Reason: Pain, Moderate(Pain Scale 4-6) Acetaminophen (Ofirmev) 1,000 mg in 100 mls @ 16.7 mls/hr IV .Q6H MISHA Lactated Ringer's (Lr) 1,000 mls @ 100 mls/hr IVCONT .Q10H MISHA Cefazolin Sodium/Dextrose (Ancef) 2 gm in 50 mls @ 100 mls/hr IV POSTOP ONE Stop: 10/31/22 14:29 Metoclopramide HCl (Metoclopramide Hcl 10 Mg/2 Ml Vial) 10 mg IVPUSH Q6H PRN PRN Reason: Nausea Ondansetron HCl (Ondansetron Hcl 4 Mg/2 Ml Vial) 4 mg IVPUSH Q8H MISHA Sodium Chloride (0.9 % Sodium Chloride Flush 3 Ml Syringe) 3 ml IVFLUSH QSHIFT MISHA Labs 10/31/22 10:45 10/31/22 10:45 Labs: Laboratory Results - last 24 hr 10/31/22 10/31/22 06:07 10:45 Anion Gap 12 Estim Creat Clear Calc 126.0 Estimated GFR > 60 Random Glucose 156 H Calcium 9.1 Urine Test NEGATIVE Procedures Date of Service Date of Service: 10/31/22 Progress Note: A&P Assessment and plan (1) S/P repair of paraesophageal hernia: Status: Acute (2) S/P laparoscopic sleeve gastrectomy: Status: Acute (3) Class 2 obesity due to excess calories with body mass index (BMI) of 35.0 to 35.9 in adult: Status: Acute (4) PCOS (polycystic ovarian syndrome): Status: Acute (5) Liver fibrosis: Status: Acute (6) Hepatomegaly: Status: Acute Plan See orders Labs noted. Continue to trend labs tomorrow am Pt advised re: HHR & expected substernal pain Water sips when nausea resolves , David, notified by phone of room & HHR. Questions answered. Time Spent With Patient Time: Total time managing care of this patient today ____ minutes. Quality Stroke Does the patient have a stroke diagnosis?: No VTE Prior VTE?: No VTE Risk Level:: Surgical - moderate VTE Device Contraindication: N/A - Device Ordered VTE Drug Contraindication: Treatment Not Indicated
[2022-10-31] MEDS: Famotidine/PF 20 MG/2 ML VIAL IVPUSH ×2 (12:32→19:13)
[2022-10-31] MEDS: Lactated Ringers 1,000 ML 100 ML IVCONT ×2 (12:33→22:05)
[2022-10-31] MEDS: Acetaminophen 1,000 MG/100 ML PIGGYBACK 16.7 MG IV ×2 (14:18→19:12)
[2022-10-31] MEDS: ondansetron HCL 4 MG/2 ML VIAL IVPUSH (19:12)
[2022-10-31] MEDS: 0.9 % Sodium Chloride Flush 3 ML SYRINGE IVFLUSH (19:13)
[2022-10-31 20:52] LABS: Glucose, Whole Blood 99 mg/dL (60-115)
[2022-10-31] MEDS: Melatonin 3 MG TABLET 6 MG PO (22:51)
[2022-11-01] MEDS: Acetaminophen 1,000 MG/100 ML PIGGYBACK 16.7 MG IV ×2 (01:03→06:30)
[2022-11-01] MEDS: ondansetron HCL 4 MG/2 ML VIAL IVPUSH (03:13)
[2022-11-01 03:27] VITALS: BP 130/77; PULSE 80; RESP 20; TEMP 36.2; O2SAT 94
[2022-11-01 06:55] LABS: Basophils Percent Auto 0.2 % (0-2); Eosinophils Percent Auto 0.3 % (0-4); Hematocrit 34.7 % (37.0-47.0); Hemoglobin 11.7 g/dl (12.0-16.0); Imm Gran Abs Auto 0.03 X10*3/uL (0.00-0.03); Imm Gran Pct Auto 0.3 % (0.0-0.4); Lymphocytes Absolute Auto 2.6 X10*3/uL (1.2-4.9); Lymphocytes Percent Auto 26.6 % (20-40); MANUAL DIFF FLAG NO; Mean Corpuscular HGB Conc 33.7 g/dl (31.0-35.0); Mean Corpuscular Volume 85.9 fL (80.0-98.0); Mean Platelet Volume 11.3 fL (9.4-12.3); Monocytes Absolute Auto 0.8 X10*3/uL (0.1-1.2); Monocytes Percent Auto 8.5 % (2-11); Neutrophils Absolute Auto 6.3 x10*3/uL (2.0-8.3); Neutrophils Percent Auto 64.1 % (45-73); Platelet Count 346 X10*3/uL (160-400); Red Blood Count 4.04 X10*6/uL (4.20-5.50); Red Cell Distribution Width 12.8 % (11.0-16.0); White Blood Count 9.9 X10*3/uL (4.8-10.8)
[2022-11-01] MEDS: Famotidine/PF 20 MG/2 ML VIAL IVPUSH (07:08)
[2022-11-01 07:23] LABS: Anion Gap 10 (12-20); Blood Urea Nitrogen 8 mg/dL (9-16); Calcium 8.7 mg/dL (8.4-10.2); Carbon Dioxide 24 mmol/L (22-29); Chloride 108 mmol/L (96-108); Creatinine Clr Calc Pharmacy 155.9; Estimated Glomerular Filt Rate > 60; Glucose Random 87 mg/dL (60-115); Potassium 3.3 mmol/L (3.3-5.1); Sodium 139 mmol/L (135-145)
--- NOTE | 2022-11-01 07:30 | P.PNGS_ITS ---
Subjective Subjective Date of Service: 11/01/22 Patient reports: still having pain Interval history: The patient was seen at approximately 07:15a, she reports expected shoulder pain and substernal pain but denies any dysphagia, regurgitation, nausea, vomiting or hematemesis. She is tolerating bariatric stage I. Artemio Hutson PA-C provided written and oral postoperative diet instruction. Patient denies any chest pain, difficulty breathing or shortness of breath. She has walked in voided her bladder. Physical Exam 2 Vital Signs: Vital Signs: Last Vital Signs Temp 97.1 F 11/01/22 03:27 Pulse 80 11/01/22 03:27 Resp 20 11/01/22 03:27 BP 130/77 11/01/22 03:27 Pulse Ox 94 11/01/22 03:27 O2 Del Method Room Air 11/01/22 03:27 O2 Flow Rate 2 10/31/22 12:00 BMI result Body Mass Index 34.4 On exam, the patient is anicteric and nontoxic She is in no acute respiratory distress Abdominal binder is in place Objective Data Active Medications Famotidine (Famotidine/Pf 20 Mg/2 Ml Vial) 20 mg IVPUSH BID [facility] Last Admin: 11/01/22 07:08 Dose: 20 mg Documented By: ESHA Hydromorphone HCl (Hydromorphone Hcl 0.5 Mg/0.5 Ml Syringe) 0.25 mg IVPUSH Q4H PRN; Protocol PRN Reason: Pain, Moderate(Pain Scale 4-6) Acetaminophen (Ofirmev) 1,000 mg in 100 mls @ 16.7 mls/hr IV .Q6H [facility] Last Admin: 11/01/22 06:30 Dose: 16.7 mls/hr Documented By: GRACE Lactated Ringer's (Lr) 1,000 mls @ 100 mls/hr IVCONT .Q10H [facility] Last Admin: 11/01/22 07:18 Dose: Not Given Documented By: ESHA Non-Admin Reason: IV Running Metoclopramide HCl (Metoclopramide Hcl 10 Mg/2 Ml Vial) 10 mg IVPUSH Q6H PRN PRN Reason: Nausea Ondansetron HCl (Ondansetron Hcl 4 Mg/2 Ml Vial) 4 mg IVPUSH Q8H [facility] Last Admin: 11/01/22 03:13 Dose: 4 mg Documented By: GRACE Sodium Chloride (0.9 % Sodium Chloride Flush 3 Ml Syringe) 3 ml IVFLUSH QSHIFT [facility] Last Admin: 11/01/22 07:18 Dose: Not Given Documented By: ESHA Non-Admin Reason: IV Running Labs 11/01/22 05:43 11/01/22 05:43 Labs: Laboratory Results - last 24 hr 10/31/22 10/31/22 11/01/22 10:45 20:45 05:43 MCV 85.9 MCH 29.0 MCHC 33.7 RDW 12.8 Plt Count 346 MPV 11.3 Immature Gran % (Auto) 0.3 Neut % (Auto) 64.1 Lymph % (Auto) 26.6 [place] % (Auto) 8.5 Eos % (Auto) 0.3 Baso % (Auto) 0.2 Lymph # (Auto) 2.6 [place] # (Auto) 0.8 Eos # (Auto) 0.0 Baso # (Auto) 0.0 Abs Immat Gran (auto) 0.03 Absolute Neuts (auto) 6.3 Absolute Nucleated RBC 0.000 Nucleated RBC % (auto) 0.0 Anion Gap 12 10 L Estim Creat Clear Calc 126.0 155.9 Estimated GFR > 60 > 60 POC Glucose 99 Random Glucose 156 H 87 Calcium 9.1 8.7 Procedures Date of Service Date of Service: 11/01/22 Progress Note: A&P Assessment and plan (1) S/P repair of paraesophageal hernia: Status: Acute (2) S/P laparoscopic sleeve gastrectomy: Status: Acute (3) PCOS (polycystic ovarian syndrome): Status: Acute (4) Liver fibrosis: Status: Acute (5) Hepatomegaly: Status: Acute (6) Class 2 obesity due to excess calories with body mass index (BMI) of 35.0 to 35.9 in adult: Status: Acute Plan The patient is demonstrating no tachycardia. Labs are noted and her hemoglobin is drifted down, likely dilutional, to 11.7 from 12.7; her BUN drifted down to 8 from 14. Patient is reassured that the shoulder pain she is experiencing is normal and part of the operation and hiatal hernia repair. Will increase to stage II bariatric diet and reassess for possible discharge home in a couple hours to assess the patient's symptoms and complaints. Post-op diet instruction reviewed by Artemio Hutson PA-C Time Spent With Patient Time: Total time managing care of this patient today ____ minutes. Quality Stroke Does the patient have a stroke diagnosis?: No VTE Prior VTE?: No VTE Risk Level:: Surgical - moderate VTE Device Contraindication: N/A - Device Ordered VTE Drug Contraindication: Treatment Not Indicated
[2022-11-01 07:40] VITALS: BP 127/82; PULSE 62; RESP 16; TEMP 36.6; O2SAT 97
[2022-11-01] MEDS: Lactated Ringers 1,000 ML 100 ML IVCONT (08:20)
--- NOTE | 2022-11-01 10:36 | HO.POSTANES ---
Post Anesthesia Evaluation Post Anesthesia Evaluation Date of Service: 11/01/22 Vital Signs: Vital Signs Temp Pulse Resp BP Pulse Ox O2 Del Method 11/01/22 07:40 97.9 F 62 16 127/82 97 Room Air 11/01/22 03:27 97.1 F 80 20 130/77 94 Room Air 10/31/22 23:21 97.8 F 79 18 134/78 97 Room Air Anesthesia: General Endotracheal-GETA Mental Status: Awake Pain Control: Satisfactory Nausea/Vomiting: None Hydration: Adequate Anesthesia-Related Issues: No Anes. Related Issues
--- NOTE | 2022-11-01 12:08 | MHC.CM.PN ---
S/P Hernia repair and gastric sleeve Lives with family. She is independent with all functional mobility. She is discharged to home today self-care. Patient arranged for transport home.
== END 2022-11-01 10:51 | disposition home or self-care (01) | DRG 403 ==
LOC: HO.SSSA 10:34 → HO.S3 10:48
PROVIDERS: Nurse Practitioner; Physician Assistant; Admitting Provider Surgery; PCP Internal Medicine; Visit Provider Surgery
PROC: 0DB64Z3 Excision of Stomach, Percutaneous Endoscopic Approach, Vertical (ICD-10-PCS; CPT 43845; principal; 2022-10-31 07:30)
DX: E66.01 Morbid (severe) obesity due to excess calories (principal); K74.00 Hepatic fibrosis, unspecified; E28.2 Polycystic ovarian syndrome; K44.9 Diaphragmatic hernia without obstruction or gangrene; K76.0 Fatty (change of) liver, not elsewhere classified; Z68.34 Body mass index [BMI] 34.0-34.9, adult; Z87.891 Personal history of nicotine dependence; Z79.899 Other long term (current) drug therapy
CPT/HCPCS: 36415; 80048; 80053; 80061; 81025; 82306; 82607; 82728; 82947; 83036; 83540; 83970; 84425; 84443; 84590; 84630; 85014; 85018; 85025; 85610; 85730; 86140; 86850; 86900; 86901; 88307; 88342; C9145; J0131; J0690; J1100; J1170; J2250; J2371; J2405; J3010

== ENCOUNTER → 2022-10-31 06:06 | Outpatient (BNV) | payer MEDICAID, SELFPAY | PROVIDERS: Admitting Provider Surgery; PCP Internal Medicine; Visit Provider Surgery | DX: E66.09 Other obesity due to excess calories (principal); Z68.38 Body mass index [BMI] 38.0-38.9, adult | CPT/HCPCS: 43775; 99024; 99499 ==

== ENCOUNTER 2022-11-06 09:01 | Outpatient (AMB) | payer MEDICAID, SELFPAY ==
--- NOTE | 2022-11-06 09:03 | A.OFFVIS_ITS ---
Intake VS Expanded 11/06/22 09:08 Height 5 ft 6 in Weight 209 lb BMI 33.7 BP 119/68 Blood Pressure Location Rt brachial Blood Pressure Position Sitting Pulse 82 Pulse Source Pulse Oximeter Temp 97.5 F Temperature Source Tympanic Pulse Oximetry 98 Oxygen Delivery Method Room Air Body Fat 81.6 Body Fat Percentage 39.0 Free Fat Mass 127.4 Muscle Mass 121.0 Visceral Mass 8.0 Water Mass 91.2 BMR 1,769 Intake Visit Reasons: (OV) 6 Days PO LSG 10/31/22 Allergies Seasonal Allergies Allergy (Severe, Verified 11/06/22 09:11) Anaphylaxis HPI HPI Comments History of Present Illness Details The pt presents for f/u after laparoscopic sleeve gastrectomy with HHR on 10/31/22 for Class 2 obesity, PCOS, NAFLD & hepatomegaly. Since surgery, she reports no GERD, odynophagia, dysphagia, hematemesis; she does report some gurgling noise & notes she's been forced to occasionally drink her shakes in 90 minutes vs 120 minutes due to child-care issues. Denies constipation, +BM. She continues the Protonix & sucralfate. Her weight today is 209.0/BMI 33.7 representing a 46 lb weight loss since entering the program. She presented to the [facility] program in 2020 with weight check, the patient presented with a height 5ft 7in and weight 255.2 lbs - using NIH BMI calculator her BMI was 40, and given her failed medical management, she wanted to proceed with SWL. Meal plan: Celebrate 4:1 shakes, 3/day Exercise plan: She is currently walking in the house due to post-op & rain; she is interested in resuming elliptical & stationary bike. We discussed her return to work and will rediscuss next week at her follow-up. [facility] Medical History BMI 34.0-34.9,adult Vitamin A deficiency Abdominal bloating BMI 36.0-36.9,adult Vitamin D deficiency Vitamin B12 deficiency Metrorrhagia BMI 38.0-38.9,adult Obesity (BMI 30-39.9) Surgical History Hx of laparoscopic partial gastrectomy Hx of colonoscopy History of tonsillectomy and adenoidectomy Hx of wisdom tooth extraction Family History Mother Hypertension Father Diabetes Kidney disease Blindness Brother No problems noted. Brother No problems noted. Brother No problems noted. Sister No problems noted. Sister No problems noted. Son Depression Daughter No problems noted. Social History Household Members: Family Housing: House Are you a primary career technical education instructor to a significant other at home: No Do you presently have visiting nurse or other home services: No Alcohol intake: current Alcohol intake frequency: holidays/special occasions only Patient Tobacco Use Status: Former Tobacco user Years Smoked: socially only service: No Female Reproductive History Menstrual Age of Menarche: 14 Review of Systems Const All systems reviewed & are unremarkable except as noted in HPI and below Reports as per HPI Physical Exam On exam she is nontoxic and in good spirits She is anicteric She is in no acute respiratory distress Abdominal incisions are healing well; her abdomen is soft and Steri-Strips are in place. There is no evidence of infection or hernia Results Reviewed Results Reviewed: Pathology of the stomach from 10/31/22 showed no H. pylori nor neoplasia in the removed specimen. Assessment & Plan Assessment & Plan (1) S/P laparoscopic sleeve gastrectomy: Code(s): Z98.84 - Bariatric surgery status (2) S/P repair of paraesophageal hernia: Code(s): Z98.890 - Other specified postprocedural states; Z87.19 - Personal history of other diseases of the digestive system (3) PCOS (polycystic ovarian syndrome): Code(s): E28.2 - Polycystic ovarian syndrome (4) Liver fibrosis: Code(s): K74.00 - Hepatic fibrosis, unspecified (5) Hepatomegaly: Code(s): R16.0 - Hepatomegaly, not elsewhere classified (6) Class 2 obesity due to excess calories with body mass index (BMI) of 35.0 to 35.9 in adult: Code(s): E66.09 - Other obesity due to excess calories; Z68.35 - Body mass index [BMI] 35.0-35.9, adult Plan The patient will continue the current celebrate meal plan with 3 shakes a day. She wants to continue this as long as possible to optimize weight loss. The patient's gurgling is likely due to air trapping/coping shakes in faster than the 2 hour recommended time frame and possibly due to the foam. I have recommended that she pre mixer shakes and allow them to separate in the Fridge so that the foam can break resulting in less air being swallowed. The importance of hydration and monitoring to be sure that she is getting as close to 64 oz per day was discussed to avoid dehydration. The patient will start to exercise at home today for 15-30 minutes and will avoid lifting more than 20 lb or core strengthening activities. She will continue to monitor her water intake and will return to see me in 1 week to reassess regarding release to work. She will reach out by text or call if there are issues or questions. Coding Level of Care Code Global (67527) Diagnoses S/P laparoscopic sleeve gastrectomy Z98.84 S/P repair of paraesophageal hernia Z98.890; Z87.19 PCOS (polycystic ovarian syndrome) E28.2 Liver fibrosis K74.00 Hepatomegaly R16.0 Class 2 obesity due to excess calories with body mass index (BMI) of 35.0 to 35.9 in adult E66.09; Z68.35
[2022-11-06 09:08] VITALS: BP 119/68; PULSE 82; TEMP 36.4; O2SAT 98; BMI 33.7
== END 2022-11-06 10:07 | disposition home or self-care (01) ==
PROVIDERS: PCP Internal Medicine; Visit Provider Surgery
DX: Z98.84 Bariatric surgery status (principal); Z98.890 Other specified postprocedural states; Z87.19 Personal history of other diseases of the digestive system; E28.2 Polycystic ovarian syndrome; K74.00 Hepatic fibrosis, unspecified; R16.0 Hepatomegaly, not elsewhere classified; E66.09 Other obesity due to excess calories; Z68.35 Body mass index [BMI] 35.0-35.9, adult
CPT/HCPCS: 99024

== ENCOUNTER → 2022-11-06 09:01 | Outpatient (BNVA) | payer MEDICAID, SELFPAY | PROVIDERS: PCP Internal Medicine; Visit Provider Surgery ==

== ENCOUNTER 2022-11-13 09:33 | Outpatient (AMB) | payer MEDICAID, SELFPAY ==
--- NOTE | 2022-11-13 09:35 | A.OFFVIS_ITS ---
Intake VS Expanded 11/13/22 09:44 Height 5 ft 6 in Weight 201 lb BMI 32.4 BP 119/67 Blood Pressure Location Lt brachial Blood Pressure Position Sitting Pulse 82 Pulse Source Pulse Oximeter Temp 96.8 F Temperature Source Tympanic Pulse Oximetry 97 Oxygen Delivery Method Room Air Body Fat 77.8 Body Fat Percentage 38.7 Free Fat Mass 123.0 Muscle Mass 116.8 Visceral Mass 8.0 Water Mass 88.2 BMR 1,707 Intake Visit Reasons: (OV) 6 Days PO LSG 10/31/22 Allergies Seasonal Allergies Allergy (Severe, Verified 11/13/22 09:38) Anaphylaxis HPI HPI Comments History of Present Illness Details The pt presents for f/u after laparoscopic sleeve gastrectomy with HHR on 10/31/22 for Class 2 obesity, PCOS, NAFLD & hepatomegaly. Since surgery, she reports no GERD, odynophagia, dysphagia, hematemesis; she reports the gurgling noise has resolved by drink her shakes in 90 minutes vs 120 minutes due to child-care issues. Denies constipation, +BM. She continues the Protonix & sucralfate. She's getting approximately 32oz H2O & her protein drinks. THe goal of 64 oz/day was reviewed. Her weight today is 201.0/BMI 32.4 representing a 54 lb weight loss since entering the program. She presented to the [facility] program in 2020 with weight check, the patient presented with a height 5ft 7in and weight 255.2 lbs - using NIH BMI calculator her BMI was 40, and given her failed medical management, she wanted to proceed with SWL. Meal plan: Celebrate 4:1 shakes, 3/day Exercise plan: She is currently walking, using the elliptical & stationary bike at >350 kcal/session 5-6 days/week. We discussed her return to work; she's doing very well, but having borderline hydration issues, so I recommended focusing on hydration & protein shakes & reassess next week at her follow-up. The patient requested that I reach out to Ysabel Prince [place]. The patient is considering an IUD and the timing is good right now. We discussed the need to avoid estrogen based treatment due to concerns of DVT and the patient has made a relayed this information. [facility] Medical History BMI 35.0-35.9,adult Counseling for control, intrauterine device BCP ( control pills) initiation Hirsutism Abnormal uterine bleeding (AUB) Pre-op evaluation Gonorrhea Cervical cancer screening Potential exposure to STD Recurrent HSV (herpes simplex virus) Well woman exam with routine gynecological exam Abnormal LFTs BMI 34.0-34.9,adult Vitamin A deficiency Abdominal bloating BMI 36.0-36.9,adult Vitamin D deficiency Vitamin B12 deficiency Metrorrhagia BMI 38.0-38.9,adult Obesity (BMI 30-39.9) Surgical History Hx of laparoscopic partial gastrectomy Hx of colonoscopy History of tonsillectomy and adenoidectomy Hx of wisdom tooth extraction Family History Mother Hypertension Father Diabetes Kidney disease Blindness Brother No problems noted. Brother No problems noted. Brother No problems noted. Sister No problems noted. Sister No problems noted. Son Depression Daughter No problems noted. Social History Household Members: Family Housing: House Are you a primary outdoor emergency care technician to a significant other at home: No Do you presently have visiting nurse or other home services: No Alcohol intake: current Alcohol intake frequency: holidays/special occasions only Patient Tobacco Use Status: Former Tobacco user Years Smoked: socially only service: No Female Reproductive History Menstrual Age of Menarche: 14 Physical Exam On exam she is nontoxic and in good spirits She is anicteric She is in no acute respiratory distress Abdominal incisions are healing well; her abdomen is soft and Steri-Strips were removed. There is no evidence of infection or hernia Results Reviewed Results Reviewed: Pathology of the stomach from 10/31/22 showed no H. pylori nor neoplasia in the removed specimen. Assessment & Plan Assessment & Plan (1) S/P repair of paraesophageal hernia: Code(s): Z98.890 - Other specified postprocedural states; Z87.19 - Personal history of other diseases of the digestive system (2) S/P laparoscopic sleeve gastrectomy: Code(s): Z98.84 - Bariatric surgery status (3) PCOS (polycystic ovarian syndrome): Code(s): E28.2 - Polycystic ovarian syndrome (4) Liver fibrosis: Code(s): K74.00 - Hepatic fibrosis, unspecified (5) Hepatomegaly: Code(s): R16.0 - Hepatomegaly, not elsewhere classified (6) Class 2 obesity due to excess calories with body mass index (BMI) of 35.0 to 35.9 in adult: Code(s): E66.09 - Other obesity due to excess calories; Z68.35 - Body mass index [BMI] 35.0-35.9, adult (7) Anxiety: Code(s): F41.9 - Anxiety disorder, unspecified Plan The patient was congratulated on her ongoing weight loss due to healthy lifesty le changes. The importance of hydration and working towards a goal of 64 oz of water in addition to her current meal plan of celebrate 4 in 1 shakes was reviewed. I think that it is too early for the patient to return to work based on her current hydration needs and we will reassess in 1 week. She will reach out to me by text if there are problems before her next appointment I have encouraged her to reach out to Ysabel Prince [place] regarding the discussion of an IUD. As long as there is no estrogen based treatment plan that would increase the risk for DVT/PE, the patient is surgically stable for this procedure. Coding Level of Care Code Global (68269) Diagnoses S/P repair of paraesophageal hernia Z98.890; Z87.19 S/P laparoscopic sleeve gastrectomy Z98.84 PCOS (polycystic ovarian syndrome) E28.2 Liver fibrosis K74.00 Hepatomegaly R16.0 Class 2 obesity due to excess calories with body mass index (BMI) of 35.0 to 35.9 in adult E66.09; Z68.35 Anxiety F41.9
[2022-11-13 09:44] VITALS: BP 119/67; PULSE 82; TEMP 36; O2SAT 97; BMI 32.4
== END 2022-11-13 10:08 | disposition home or self-care (01) ==
PROVIDERS: PCP Internal Medicine; Visit Provider Surgery
DX: Z98.890 Other specified postprocedural states (principal); Z87.19 Personal history of other diseases of the digestive system; Z98.84 Bariatric surgery status; E28.2 Polycystic ovarian syndrome; K74.00 Hepatic fibrosis, unspecified; R16.0 Hepatomegaly, not elsewhere classified; E66.09 Other obesity due to excess calories; Z68.35 Body mass index [BMI] 35.0-35.9, adult; F41.9 Anxiety disorder, unspecified
CPT/HCPCS: 99024

== ENCOUNTER → 2022-11-13 09:33 | Outpatient (BNVA) | payer MEDICAID, SELFPAY | PROVIDERS: PCP Internal Medicine; Visit Provider Surgery ==

== ENCOUNTER 2022-11-19 08:34 | Outpatient (AMB) | payer MEDICAID, SELFPAY ==
[2022-11-19 08:35] VITALS: BP 128/92; PULSE 111; TEMP 36.8; O2SAT 96; BMI 31.6
--- NOTE | 2022-11-19 08:35 | MHC.OFFVISWM ---
Intake VS Expanded 11/19/22 08:35 Height 5 ft 6 in Weight 196 lb BMI 31.6 BP 128/92 H Blood Pressure Location Rt brachial Blood Pressure Position Sitting Pulse 111 H Pulse Source Pulse Oximeter Temp 98.2 F Temperature Source Tympanic Pulse Oximetry 96 Oxygen Delivery Method Room Air Body Fat 71.6 Body Fat Percentage 36.6 Free Fat Mass 124.4 Muscle Mass 118.2 Visceral Mass 7.0 Water Mass 89.0 BMR 1,713 Intake Visit Reasons: (OV) PO LSG 10/31/22 Allergies Seasonal Allergies Allergy (Severe, Verified 11/19/22 08:41) Anaphylaxis HPI HPI Comments History of Present Illness Details The pt presents for f/u after laparoscopic sleeve gastrectomy with HHR on 10/31/22 for Class 2 obesity, PCOS, NAFLD & hepatomegaly. Since surgery, she reports no GERD, odynophagia, dysphagia, hematemesis; she reports the gurgling noise has resolved by drink her shakes in 120 minutes. She has been using a treadmill for 30 minutes every day. Denies constipation, +BM. She continues the Protonix & sucralfate. She's getting approximately 32oz H2O & her protein drinks. The goal of 64 oz/day was reviewed. Her weight today is 196.0 lbs /BMI 31.6 representing a 59 lb weight loss since entering the program. In summary: the pt presented to the [facility] program in 2020 for a weight check with a height 5ft 7in and weight 255.2 lbs - using NIH BMI calculator her BMI was 40, and given her failed medical management, she wanted to proceed with SWL. Meal plan: Celebrate 4:1 shakes, 4 scoops 3/day. She is not interested in changing the meal plan at this point and would like to continue at least 3 months, possibly 4 with celebrate 4 in 1. The option of changing to a different protein product was discussed but declined at this time. Exercise plan: She is currently walking, using the elliptical & stationary bike at >350 kcal/session 5-6 days/week. We discussed her return to work; she's doing very well, but having borderline hydration issues, so I recommended focusing on hydration & protein shakes & reassess next week at her follow-up. The patient requested that I reach out to Ysabel Charles. The patient is considering an IUD and the timing is good right now. We discussed the need to avoid estrogen based treatment due to concerns of DVT and the patient has made a relayed this information. [facility] Medical History BMI 35.0-35.9,adult Counseling for control, intrauterine device BCP ( control pills) initiation Hirsutism Abnormal uterine bleeding (AUB) Pre-op evaluation Gonorrhea Cervical cancer screening Potential exposure to STD Recurrent HSV (herpes simplex virus) Well woman exam with routine gynecological exam Abnormal LFTs BMI 34.0-34.9,adult Vitamin A deficiency Abdominal bloating BMI 36.0-36.9,adult Vitamin D deficiency Vitamin B12 deficiency Metrorrhagia BMI 38.0-38.9,adult Obesity (BMI 30-39.9) Surgical History Hx of laparoscopic partial gastrectomy Hx of colonoscopy History of tonsillectomy and adenoidectomy Hx of wisdom tooth extraction Family History Mother Hypertension Father Diabetes Kidney disease Blindness Brother No problems noted. Brother No problems noted. Brother No problems noted. Sister No problems noted. Sister No problems noted. Son Depression Daughter No problems noted. Social History Household Members: Family Housing: House Are you a primary primary care sales representative to a significant other at home: No Do you presently have visiting nurse or other home services: No Alcohol intake: current Alcohol intake frequency: holidays/special occasions only Patient Tobacco Use Status: Former Tobacco user Years Smoked: socially only service: No Female Reproductive History Menstrual Age of Menarche: 14 Review of Systems Const All systems reviewed & are unremarkable except as noted in HPI and below Reports as per HPI Results Reviewed Results Reviewed: Pathology of the stomach from 10/31/22 showed no H. pylori nor neoplasia in the removed specimen. Assessment & Plan Assessment & Plan (1) S/P repair of paraesophageal hernia: Code(s): Z98.890 - Other specified postprocedural states; Z87.19 - Personal history of other diseases of the digestive system (2) S/P laparoscopic sleeve gastrectomy: Code(s): Z98.84 - Bariatric surgery status (3) PCOS (polycystic ovarian syndrome): Code(s): E28.2 - Polycystic ovarian syndrome (4) Liver fibrosis: Code(s): K74.00 - Hepatic fibrosis, unspecified (5) Hepatomegaly: Code(s): R16.0 - Hepatomegaly, not elsewhere classified (6) BMI 31.0-31.9,adult: Code(s): Z68.31 - Body mass index [BMI] 31.0-31.9, adult Plan Meal plan: The patient will continue 4 scoops of celebrate 4 in 1 as 3 shakes; the patient has the option of taking them as 4 shakes if she becomes hungry. She is doing very well regarding exercise and will increase as tolerated to an hour per day on the treadmill. The patient will refrain from core strengthening exercises for the next 2 weeks and will see 1 of the PAs for her 1 month visit and then return to me after and back in the office at the end of November. Patient will follow-up with her speech therapist technician and Sun Parisi. Patient voiced interest in emotionally Education, healthier shopping options and she will discuss with Sun. Coding Level of Care Code Global (60556) Diagnoses S/P repair of paraesophageal hernia Z98.890; Z87.19 S/P laparoscopic sleeve gastrectomy Z98.84 PCOS (polycystic ovarian syndrome) E28.2 Liver fibrosis K74.00 Hepatomegaly R16.0 BMI 31.0-31.9,adult Z68.31
== END 2022-11-19 09:07 | disposition home or self-care (01) ==
PROVIDERS: PCP Internal Medicine; Visit Provider Surgery
DX: Z98.890 Other specified postprocedural states (principal); Z87.19 Personal history of other diseases of the digestive system; Z98.84 Bariatric surgery status; E28.2 Polycystic ovarian syndrome; K74.00 Hepatic fibrosis, unspecified; R16.0 Hepatomegaly, not elsewhere classified; Z68.31 Body mass index [BMI] 31.0-31.9, adult
CPT/HCPCS: 99024

== ENCOUNTER → 2022-11-19 08:34 | Outpatient (BNVA) | payer MEDICAID, SELFPAY | PROVIDERS: PCP Internal Medicine; Visit Provider Surgery ==

== ENCOUNTER 2022-12-06 08:37 | Outpatient (AMB) | payer MEDICAID, SELFPAY ==
--- NOTE | 2022-12-06 08:38 | MHC.OFFVISWM ---
Intake VS Expanded 12/06/22 08:44 BP 120/65 Blood Pressure Location Rt brachial Blood Pressure Position Sitting Pulse 80 Pulse Source Pulse Oximeter Temp 98.3 F Temperature Source Temporal Artery Scan Pulse Oximetry 99 Oxygen Delivery Method Room Air Height 5 ft 7 in Weight 185 lb 3.2 oz BMI 29.0 Body Fat % 35.1 Body Fat Mass 65.0 Fat Free Mass 120.2 Visceral Fat Rating 6.0 Body Water % 46.5 Body Water Mass 86.2 Muscle Mass/Score 114.0 Basal Metabolic Rate/Score 1,650 Intake Visit Reasons: (OV) PO LSG 10/31/22 Supply Requirements Officer Required: No Allergies Seasonal Allergies Allergy (Severe, Verified 12/06/22 08:41) Anaphylaxis Medication List - Last Reconciled 12/06/22 by CESAR Rodriguez pantoprazole 40 mg PO QAM 30 days sucralfate 10 mL PO BID 30 days valacyclovir 500 mg PO DAILY PRN venlafaxine ER 75 mg PO DAILY HPI HPI Comments History of Present Illness Details This?a?37?yo female who is s/p LSG without hiatal hernia repair on?10/31/[address] Baires. Presents for 1 month post op visit. Weight today is 185.2 pounds, with a BMI of 29. There has been a 55.8 pound weight loss,(initial weight 241 pounds) since starting the program on 06/08/22 reflecting a 23.1% total body weight loss and a weight loss of 34.1 pounds since surgery (operative weight 219.3 pounds) reflecting a 15.5% TBWL since surgery. No complaints of nausea, emesis, abdominal pain or reflux. Reports infrequent but normal bowel movements every 1-2 days. Wants to continue with shakes and minimize food intake at this time. Present meal plan includes: celebrate 4 in 1 shakes, 2 shakes per day, 2 scoops each. 10-2, 2-6 drinking 32 oz water ? Exercise routine includes: jogging 5-7 days per week treadmill, speed 4.5-4.7 incline 0 as it does not incline. 3 miles, 30-45 min, 400-550 calories [facility] Medical History BMI 35.0-35.9,adult Counseling for control, intrauterine device BCP ( control pills) initiation Hirsutism Abnormal uterine bleeding (AUB) Pre-op evaluation Gonorrhea Cervical cancer screening Potential exposure to STD Recurrent HSV (herpes simplex virus) Well woman exam with routine gynecological exam Abnormal LFTs BMI 34.0-34.9,adult Vitamin A deficiency Abdominal bloating BMI 36.0-36.9,adult Vitamin D deficiency Vitamin B12 deficiency Metrorrhagia BMI 38.0-38.9,adult Obesity (BMI 30-39.9) Surgical History Hx of laparoscopic partial gastrectomy Hx of colonoscopy History of tonsillectomy and adenoidectomy Hx of wisdom tooth extraction Family History Mother Hypertension Father Diabetes Kidney disease Blindness Brother No problems noted. Brother No problems noted. Brother No problems noted. Sister No problems noted. Sister No problems noted. Son Depression Daughter No problems noted. Social History Household Members: Family Housing: House Are you a primary medicare sales representative to a significant other at home: No Do you presently have visiting nurse or other home services: No Alcohol intake: current Alcohol intake frequency: holidays/special occasions only Patient Tobacco Use Status: Former Tobacco user Years Smoked: socially only service: No Female Reproductive History Menstrual Age of Menarche: 14 Physical Exam GI Inspection: Yes incision (c/d/i) Assessment & Plan Assessment & Plan (1) S/P laparoscopic sleeve gastrectomy: Code(s): Z98.84 - Bariatric surgery status Plan: The patient is congratulated on no longer being obese. She wishes to maintain a strict as possible meal plan and we will therefore adjusted slightly. She will continue with celebrate 4 in 1 shakes, 2 shakes per day, 2 scoops per shake. She will add 1 premier protein shake with 1 scoop or a Algerian yogurt daily She will continue exercises. She may incorporate weight training next week. She will follow-up with Dr. Baries in 3 weeks time. (2) Overweight (BMI 25.0-29.9): Code(s): E66.3 - Overweight Coding Level of Care Code Global (81445) Diagnoses S/P laparoscopic sleeve gastrectomy Z98.84 Overweight (BMI 25.0-29.9) E66.3
[2022-12-06 08:44] VITALS: BP 120/65; PULSE 80; TEMP 36.8; O2SAT 99; BMI 29.0
== END 2022-12-06 09:10 | disposition home or self-care (01) ==
PROVIDERS: PCP Internal Medicine; Visit Provider Physician Assistant Surgical
DX: E66.3 Overweight (principal); Z68.29 Body mass index [BMI] 29.0-29.9, adult; Z90.3 Acquired absence of stomach [part of]; Z98.84 Bariatric surgery status
CPT/HCPCS: 99024

== ENCOUNTER → 2022-12-06 08:37 | Outpatient (BNVA) | payer MEDICAID, SELFPAY | PROVIDERS: PCP Internal Medicine; Visit Provider Physician Assistant Surgical ==

== ENCOUNTER → 2022-12-19 09:36 | Outpatient (BNVA) | payer MEDICAID, SELFPAY | PROVIDERS: PCP Internal Medicine; Visit Provider Dietitian, Registered | DX: E66.9 Obesity, unspecified (principal); Z68.27 Body mass index [BMI] 27.0-27.9, adult; Z98.84 Bariatric surgery status | CPT/HCPCS: 97803 ==

== ENCOUNTER 2022-12-21 08:40 | Outpatient (AMB) | payer MEDICAID, SELFPAY ==
--- NOTE | 2022-12-21 08:41 | MHC.OFFVISWM ---
Intake Intake Visit Reasons: VIDEO PO LSG 10/31/22 Allergies Seasonal Allergies Allergy (Severe, Verified 12/21/22 08:42) Anaphylaxis HPI HPI Comments History of Present Illness Details The pt presents for f/u after laparoscopic sleeve gastrectomy with HHR on 10/31/22 for Class 2 obesity, PCOS, NAFLD & hepatomegaly. Since surgery, she reports no GERD, odynophagia, dysphagia, hematemesis; she reports the gurgling noise has resolved by drink her shakes in 120 minutes. She has been using a treadmill for 30 minutes every day. Denies constipation, +BM. She continues the Protonix & sucralfate. She's getting approximately 32oz H2O & her protein drinks. The goal of 64 oz/day was reviewed. Her weight with Sun was 176.4 lbs/BMI 27.6 representing a 79 lb weight loss since entering the program. The patient did not have a weight today and through miscommunication, today's visit was conducted as a tele visit. In summary: the pt presented to the [facility] program in 2020 for a weight check with a height 5ft 7in and weight 255.2 lbs - using NIH BMI calculator her BMI was 40, and given her failed medical management, she wanted to proceed with SWL. Meal plan: Celebrate 4:1 shakes, 4 scoops 3/day. She is not interested in changing the meal plan at this point and would like to continue at least 3 months, possibly 4 with celebrate 4 in 1. The option of changing to a different protein product was discussed but declined at this time. Added 2oz cottage cheese or yogurt. Exercise plan: She is currently walking, using the elliptical & stationary bike at >450 kcal/session 5-6 days/week. We discussed her return to work; she's doing very well, but having borderline hydration issues, so I recommended focusing on hydration & protein shakes & reassess next week at her follow-up. She does note thirst & will trend her fluid intake between now & next visit. The patient requested that I reach out to Ysabel [place]. The patient is considering an IUD and the timing is good right now. We discussed the need to avoid estrogen based treatment due to concerns of DVT and the patient has made a relayed this information. [facility] Medical History BMI 35.0-35.9,adult Counseling for control, intrauterine device BCP ( control pills) initiation Hirsutism Abnormal uterine bleeding (AUB) Pre-op evaluation Gonorrhea Cervical cancer screening Potential exposure to STD Recurrent HSV (herpes simplex virus) Well woman exam with routine gynecological exam Abnormal LFTs BMI 34.0-34.9,adult Vitamin A deficiency Abdominal bloating BMI 36.0-36.9,adult Vitamin D deficiency Vitamin B12 deficiency Metrorrhagia BMI 38.0-38.9,adult Obesity (BMI 30-39.9) Surgical History Hx of laparoscopic partial gastrectomy Hx of colonoscopy History of tonsillectomy and adenoidectomy Hx of wisdom tooth extraction Family History Mother Hypertension Father Diabetes Kidney disease Blindness Brother No problems noted. Brother No problems noted. Brother No problems noted. Sister No problems noted. Sister No problems noted. Son Depression Daughter No problems noted. Social History Household Members: Family Housing: House Are you a primary home health aide caregiver to a significant other at home: No Do you presently have visiting nurse or other home services: No Alcohol intake: current Alcohol intake frequency: holidays/special occasions only Patient Tobacco Use Status: Former Tobacco user Years Smoked: socially only service: No Female Reproductive History Menstrual Age of Menarche: 14 Physical Exam Telephone visit, patient denies any physical concerns. Results Reviewed Results Reviewed: Pathology of the stomach from 10/31/22 showed no H. pylori nor neoplasia in the removed specimen. Assessment & Plan Assessment & Plan (1) Overweight (BMI 25.0-29.9): Code(s): E66.3 - Overweight (2) S/P laparoscopic sleeve gastrectomy: Code(s): Z98.84 - Bariatric surgery status (3) PCOS (polycystic ovarian syndrome): Code(s): E28.2 - Polycystic ovarian syndrome Plan The patient is instructed to stop the Carafate and continue the PPI. She is having absolutely no GERD or GI related issues. Patient has a follow-up with the dietitian and will reach out to me with questions, otherwise, I would like to see her for 3 month postop check in the January. Patient notes that she will reach out if she is having questions, concerns or problems and will trend her fluid intake as recommended. She is congratulated on the 79 lb weight loss since entering our program. Telehealth Telehealth Location of provider rendering services: practice address Location of patient: address on file Patient Identification confirmed using: Name, : Yes Telehealth method: voice only Patient verbally consented to treatment: Yes Patient verbally consented to billing insurance company: Yes Patient informed of any privacy concerns related to visit: Yes Minutes spent on Phone/Video with Pt.: 16 Coding Level of Care Code Global (84752) Diagnoses Overweight (BMI 25.0-29.9) E66.3 S/P laparoscopic sleeve gastrectomy Z98.84 PCOS (polycystic ovarian syndrome) E28.2
== END 2022-12-21 08:56 | disposition home or self-care (01) ==
LOC: HO.HBS 08:40
PROVIDERS: PCP Internal Medicine; Visit Provider Surgery
DX: E66.3 Overweight (principal); Z98.84 Bariatric surgery status; E28.2 Polycystic ovarian syndrome
CPT/HCPCS: 99024

== ENCOUNTER → 2022-12-21 08:40 | Outpatient (BNVA) | payer MEDICAID, SELFPAY | PROVIDERS: PCP Internal Medicine; Visit Provider Surgery ==

== ENCOUNTER → 2023-01-03 08:31 | Outpatient (BNVA) | payer MEDICAID, SELFPAY | PROVIDERS: PCP Internal Medicine; Visit Provider Dietitian, Registered | DX: E66.9 Obesity, unspecified (principal); Z68.27 Body mass index [BMI] 27.0-27.9, adult | CPT/HCPCS: 97803 ==

== ENCOUNTER 2023-02-01 08:37 | Outpatient (AMB) | payer MEDICAID, SELFPAY ==
[2023-02-01 08:44] VITALS: BMI 25.8
--- NOTE | 2023-02-01 08:44 | A.OFFVIS_ITS ---
Intake VS Expanded 02/01/23 08:44 Height 5 ft 7 in Weight 165 lb BMI 25.8 Body Fat % 28.9 Body Fat Mass 47.8 Fat Free Mass 117.8 Visceral Fat Rating 4 Body Water % 50.9 Body Water Mass 84.2 Muscle Mass/Score 111.8 Basal Metabolic Rate/Score 1,591 Intake Visit Reasons: (OV) PO LSG 10/31/22 Allergies Seasonal Allergies Allergy (Severe, Verified 12/21/22 08:42) Anaphylaxis HPI Nutrition Presentation Details Patient participated in medical weight loss several years before pursuing surgery LSG DOS 10/31/[address] Baires Preop weight 213# weight at 6 wks PO 176# weight at 9wks 174 current weight at 3 MO PO 165 Today we discussed her body composition, her body fat percentage is in the healthy range, we discussed realistically, she will not be able to achieve a goal weight of 130. she is comfortable with this Diet Assmnt Details 8am-11am 4in1 shake 2 scoops in water 1-3pm same shake 6:30pm meal 4 forks kittitian yogurt,. cot tage cheese or scrambled egg . feels full off the 1-2oz Patient feels very satisfied with the above nutrition plan. She does not want to change anything. She really enjoys the 4 in 1 protein shakes. Exercise: 4 miles 50 minutes 5x per week . Patient shares she really wants to include resistance training for strength and toning Hydration: adequate Patient reports frequent, irregular, sometimes heavy menstrual bleeding. This began shortly after having surgery. I advised her to discuss this with her OBGYN. Her current intake is not meeting the SALES AND MARKETING ASSISTANT for iron Last note: Patient speaks dealing with some the negative comments people are making about her smaller body size, for example has been asked if she has cancer. Patient is also very fearful of stretching out her stomach. She is a little apprehensive about eating more than she currently is now. Shares she has always struggled with her weight, and is hoping the surgery will be her last attempt at weight loss. She recognizes the importance of behavior change and addressing the mental health component, therefore she would like to attend group therapy with Allegra. Dietary counseling reduction Diagnosis Nutrition problem #1 overweight/obesity As related to (etiology) #1 excess energy intake and physical inactivity As evidenced by (sign/symptom) #1 high BMI Monitoring/Goals Nutrition problem monitoring total energy intake, level of knowledge/skill, total PRO intake, total CHO intake and weight Outcome progress progressing Learning/Education Readiness to learn excellent Stages of change action Educational materials provided Yes Most Recent Diabetes Results: No Data to Display [facility] Medical History BMI 35.0-35.9,adult Counseling for control, intrauterine device BCP ( control pills) initiation Hirsutism Abnormal uterine bleeding (AUB) Pre-op evaluation Gonorrhea Cervical cancer screening Potential exposure to STD Recurrent HSV (herpes simplex virus) Well woman exam with routine gynecological exam Abnormal LFTs BMI 34.0-34.9,adult Vitamin A deficiency Abdominal bloating BMI 36.0-36.9,adult Vitamin D deficiency Vitamin B12 deficiency Metrorrhagia BMI 38.0-38.9,adult Obesity (BMI 30-39.9) Surgical History Hx of laparoscopic partial gastrectomy Hx of colonoscopy History of tonsillectomy and adenoidectomy Hx of wisdom tooth extraction Family History Mother Hypertension Father Diabetes Kidney disease Blindness Brother No problems noted. Brother No problems noted. Brother No problems noted. Sister No problems noted. Sister No problems noted. Son Depression Daughter No problems noted. Social History Household Members: Family Housing: House Are you a primary pharmacist critical care to a significant other at home: No Do you presently have visiting nurse or other home services: No Alcohol intake: current Alcohol intake frequency: holidays/special occasions only Patient Tobacco Use Status: Former Tobacco user Years Smoked: socially only service: No Female Reproductive History Menstrual Age of Menarche: 14 Assessment & Plan Assessment & Plan (1) Overweight (BMI 25.0-29.9): Code(s): E66.3 - Overweight Plan Nutrition follow-up in 1 month Patient Instructions: Patient preference to continue with two 4in 1 protein shakes + 1 meal of protein and veg. May advance diet to raw vegetables. Also encouraged increasing calorie intake by adding 1 small snack per day (Lux[place]bourgish yogurt, cottage cheese, 1- 2 eggs). Continue exercise and incorporate resistance training 3 times per week. Since she would like to continue with 4in1 protein shakes, recommend additional iron supplement. She is not currently meeting the SALES AND MARKETING ASSISTANT for iron through diet . She would like to begin group therapy starting March 06. Coding Level of Care Code Nutr Indiv Subseq (86331) Diagnoses Overweight (BMI 25.0-29.9) E66.3 Time Spent (min) 45
== END 2023-02-01 09:51 | disposition home or self-care (01) ==
PROVIDERS: PCP Internal Medicine; Visit Provider Dietitian, Registered
DX: E66.3 Overweight (principal)

== ENCOUNTER → 2023-02-01 08:37 | Outpatient (BNVA) | payer MEDICAID, SELFPAY | PROVIDERS: PCP Internal Medicine; Visit Provider Dietitian, Registered | DX: E66.3 Overweight (principal); Z68.25 Body mass index [BMI] 25.0-25.9, adult | CPT/HCPCS: 97803 ==

== ENCOUNTER 2023-04-06 08:42 | Outpatient (REF) | payer MEDICAID, SELFPAY ==
[2023-04-06 09:18] LABS: Hematocrit 39.4 % (37.0-47.0); Hemoglobin 13.1 g/dl (12.0-16.0); Mean Corpuscular HGB Conc 33.2 g/dl (31.0-35.0); Mean Corpuscular Hemoglobin 29.2 pg (27.0-33.0); Mean Corpuscular Volume 87.9 fL (80.0-98.0); Platelet Count 419 X10*3/uL (160-400); Red Blood Count 4.48 X10*6/uL (4.20-5.50); Red Cell Distribution Width 13.2 % (11.0-16.0); White Blood Count 5.6 X10*3/uL (4.8-10.8)
[2023-04-06 10:51] LABS: Thyroid Stimulating Hormone 1.13 uIU/mL (0.32-4.0)
[2023-04-06 10:53] LABS: Syphilis Screen Nonreactive (Nonreactive)
[2023-04-06 11:01] LABS: HBsAGNum1 0.42 S/CO (0.00-0.99); HIV AB/AG Nonreactive (Nonreactive); HIV Num 1 0.05 S/CO (0.00-0.99); Hepatitis B Surface Antigen Negative (Negative); ~HepC Num1 0.08 S/CO (0.00-0.79); ~Hepatitis C Antibody Nonreactive (Nonreactive)
[2023-04-07 19:18] LABS: DHEA Sulfate 92 mcg/dL (19-237)
[2023-04-11 14:14] LABS: Testosterone, Free 6.7 pg/mL (0.1-6.4); Testosterone, Total 39 ng/dL (2-45)
== END 2023-04-06 08:43 | disposition home or self-care (01) ==
LOC: HO.LAB 08:42
PROVIDERS: PCP Internal Medicine; Visit Provider Advanced Practice Midwife
DX: Z01.419 Encounter for gynecological examination (general) (routine) without abnormal findings (principal); L68.0 Hirsutism; N93.9 Abnormal uterine and vaginal bleeding, unspecified; A54.9 Gonococcal infection, unspecified; B00.9 Herpesviral infection, unspecified; E66.9 Obesity, unspecified; Z20.2 Contact with and (suspected) exposure to infections with a predominantly sexual mode of transmission
CPT/HCPCS: 36415; 82627; 84402; 84403; 84443; 85027; 86780; 86803; 87340; 87389

== ENCOUNTER 2023-06-24 09:22 | Outpatient (REF) | payer MEDICAID, SELFPAY ==
[2023-06-25 11:45] LABS: CT PCR NOT DETECTED (Not Detect.); NG PCR NOT DETECTED (Not Detect.)
[2023-06-25 13:36] LABS: BV Int Neg Control Negative (Negative); BV Int Pos Control Positive (Positive)
== END 2023-06-24 09:23 | disposition home or self-care (01) ==
LOC: HO.LNP 09:22
PROVIDERS: PCP Internal Medicine; Visit Provider Advanced Practice Midwife
DX: Z11.3 Encounter for screening for infections with a predominantly sexual mode of transmission (principal)
CPT/HCPCS: 0353U; 36415; 86695; 86696; 86780; 86803; 87340; 87389; 87480; 87510; 87660; 99212

== ENCOUNTER 2023-06-24 09:22 | Outpatient (AMB) | payer MEDICAID, SELFPAY ==
--- NOTE | 2023-06-24 09:24 | A.OFFVIS_ITS ---
Vital Signs 06/24/23 09:26 Height 5 ft 7 in Weight 172 lb BMI 26.9 BP 104/64 Intake Visit Reasons: std testing Intake Note: would like full std testing blood work included Hydraulic Specialist Required: No Information Interpreted: non-clinical & clinical Executive Sales Manager: Executive Sales Manager Present (Oniel) Allergies Seasonal Allergies Allergy (Severe, Verified 06/24/23 09:27) Anaphylaxis Medication List - Last Reconciled 06/24/23 by Ysabel Jordan CNM norgestimate-ethinyl estradiol 0.18/0.215/0.25 mg-35 mcg (28) 1 tab PO DAILY valacyclovir 500 mg PO DAILY PRN Is last menstrual period known: Yes Last menstrual period: 06/20/23 Post menopausal: No HPI HPI std testing: Details: Patient has concerns about her partner's extracurricular activities and wants to be checked for everything possible for her own records and peace of mind. She knows that she does get herpes and she is on Valtrex for suppression she noticed that she did get some outbreaks after she had COVID. She has found out some things about her 's behavior that are disturbing and she is talking to who she needs to talk to to figure out what she wishes to do. In the meantime she is taking very good care of herself in her family and she is exploring another job and she is very happy with the weight loss and she continues to work very hard at it herself she runs 6-8 miles every day. She is feeling good and her self-confidence has really improved and she feels very good about where she is right now. She continues on the control pills and likes what they do for her. So she wants to stay on them. [facility] Medical History BMI 35.0-35.9,adult Counseling for control, intrauterine device BCP ( control pills) initiation Hirsutism Abnormal uterine bleeding (AUB) Pre-op evaluation Gonorrhea Cervical cancer screening Potential exposure to STD Recurrent HSV (herpes simplex virus) Well woman exam with routine gynecological exam Abnormal LFTs BMI 34.0-34.9,adult Vitamin A deficiency Abdominal bloating BMI 36.0-36.9,adult Vitamin D deficiency Vitamin B12 deficiency Metrorrhagia BMI 38.0-38.9,adult Obesity (BMI 30-39.9) Surgical History Hx of laparoscopic partial gastrectomy Hx of colonoscopy History of tonsillectomy and adenoidectomy Hx of wisdom tooth extraction Family History Mother Hypertension Father Diabetes Kidney disease Blindness Brother No problems noted. Brother No problems noted. Brother No problems noted. Sister No problems noted. Sister No problems noted. Son Depression Daughter No problems noted. Social History Household Members: Family Housing: House Are you a primary child care leader to a significant other at home: No Do you presently have visiting nurse or other home services: No Alcohol intake: current Alcohol intake frequency: holidays/special occasions only Patient Tobacco Use Status: Former Tobacco user Years Smoked: socially only service: No Female Reproductive History Menstrual Age of Menarche: 14 Duration of menses: 3-5 days Date of last menstrual period: 06/20/23 control method: pills Total pregnancies: 2 Full term: 2 Number of Living Children: 2 Date of last pap smear: 08/02/22 (negative) History of abnormal pap smear: No Physical Exam Vital Signs: Last Vital Signs BP 104/64 06/24/23 09:26 BMI result Body Mass Index 26.9 Other: Mucosa pink and healthy cervix multiparous healthy shiny normal scant mucus.. No lesions anywhere. External Female Exam: normal external appearance and normal appearance of the urethra Speculum Exam - Vagina: normal appearance of the vagina and normal vaginal discharge Speculum Exam - Cervix: normal appearance of the cervix and Cervical os closed Assessment & Plan Assessment & Plan (1) Encounter for screening examination for sexually transmitted disease: Code(s): Z11.3 - Encounter for screening for infections with a predominantly sexual mode of transmission Category: Medical Plan Discussed her challenges and how she is ensuring that she seeks proper support and takes care of herself. She is not intending to be sexually active with him anymore. She wants full baseline testing for her own peace of mind and records. She does know that she has a history of herpes so we are expecting that to show in her blood tests. She is on the portal so can get all of the test results herself. Discussed at some length her challenges and all that she is considering in her processes. Congratulated on her incredible self work and self-care. Orders: Orders HIV Ab/Ag Today Z11.3 - Encounter for screening for infections with a predominantly sexual mode of transmission Bacterial Vaginosis Panel Today Z11.3 - Encounter for screening for infections with a predominantly sexual mode of transmission Hepatitis B Surface Antigen Today Z11.3 - Encounter for screening for infections with a predominantly sexual mode of transmission Hepatitis C Antibody Today Z11.3 - Encounter for screening for infections with a predominantly sexual mode of transmission Syphilis Screen Today Z11.3 - Encounter for screening for infections with a predominantly sexual mode of transmission Herpes Simplex Virus Ab IgG Today Z11.3 - Encounter for screening for infections with a predominantly sexual mode of transmission CT NG by PCR Today Z11.3 - Encounter for screening for infections with a predominantly sexual mode of transmission Coding Level of Care Code Est Pt Level 3 (28016) Diagnoses Encounter for screening examination for sexually transmitted disease Z11.3
[2023-06-24 09:26] VITALS: BP 104/64; BMI 26.9
== END 2023-06-24 10:25 | disposition home or self-care (01) ==
PROVIDERS: PCP Internal Medicine; Visit Provider Advanced Practice Midwife
DX: Z11.3 Encounter for screening for infections with a predominantly sexual mode of transmission (principal)
CPT/HCPCS: 99213

== ENCOUNTER 2023-06-24 10:30 | Outpatient (REF) | payer MEDICAID, SELFPAY ==
[2023-06-24 13:29] LABS: HIV AB/AG Nonreactive (Nonreactive); HIV Num 1 0.04 S/CO (0.00-0.99)
[2023-06-24 13:34] LABS: Syphilis Screen Nonreactive (Nonreactive)
[2023-06-24 13:42] LABS: HBsAGNum1 0.37 S/CO (0.00-0.99); Hepatitis B Surface Antigen Negative (Negative); ~HepC Num1 0.09 S/CO (0.00-0.79); ~Hepatitis C Antibody Nonreactive (Nonreactive)
[2023-06-25 19:43] LABS: Herpes Simplex Type 2 IgG <0.90 index
== END 2023-06-24 10:31 | disposition home or self-care (01) ==
LOC: HO.HHCL 10:30
PROVIDERS: Visit Provider Advanced Practice Midwife
DX: Z11.3 Encounter for screening for infections with a predominantly sexual mode of transmission (principal); Z11.4 Encounter for screening for human immunodeficiency virus [HIV]
CPT/HCPCS: 36415; 86695; 86696; 86780; 86803; 87340; 87389

== ENCOUNTER 2024-01-06 11:40 | Outpatient (AMB) | payer MEDICAID, SELFPAY ==
[2024-01-06 11:45] VITALS: BP 108/76; BMI 30.5
--- NOTE | 2024-01-06 11:45 | MHC.OFFVIS ---
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 She has been on control pills for a long time and she was on the norethindrone control pills which I had prescribed but somehow last year her prescription got switched to a triphasic control pill. Patient believes she has gained about 20 to 30 lb since starting on that pill and she feels like a lot of it is water was and she wants to change back to the norethindrone that she was on at previous visits with me we had discussed using a Mirena IU S but she decided to stay on the norethindrone at that time she was also going to be having bariatric surgery so she stayed on norethindrone as well it appears that when she was in the hospital on the day of her surgery 10/31/2022 the norethindrone pill was discontinued from her medication list and the triphasic OCP was added to her control list on 10/31/2022 that was done in inpatient setting. So when the patient needed a refill of control pills in September because she was running out a refill was sent for the control pills that were stated in her [facility] chart as the triphasic pill. This was discovered through a very deep dive of multiple parts of the [facility] system. Patient most of all does not want to be on this triphasic pill, and she wants to switch back to the norethindrone pill that she was on. After full discussion of what on I am discontinuing the triphasic pill and re prescribing the norethindrone control pill that I had originally prescribed for her. She is interested in testing for STIs and she is also wondering about getting checked to see if how her blood count is her thyroid as she sometimes experiences dizziness. [facility] Medical History BMI 35.0-35.9,adult Counseling for control, intrauterine device BCP ( control pills) initiation Hirsutism Abnormal uterine bleeding (AUB) Pre-op evaluation Gonorrhea Cervical cancer screening Potential exposure to STD Recurrent HSV (herpes simplex virus) Well woman exam with routine gynecological exam Abnormal LFTs BMI 34.0-34.9,adult Vitamin A deficiency Abdominal bloating BMI 36.0-36.9,adult Vitamin D deficiency Vitamin B12 deficiency Metrorrhagia BMI 38.0-38.9,adult Obesity (BMI 30-39.9) Surgical History Hx of laparoscopic partial gastrectomy Hx of colonoscopy History of tonsillectomy and adenoidectomy Hx of wisdom tooth extraction Family History Mother Hypertension Father Diabetes Kidney disease Blindness Brother No problems noted. Brother No problems noted. Brother No problems noted. Sister No problems noted. Sister No problems noted. Son Depression Daughter No problems noted. Social History Household Members: Family Housing: House Are you a primary coronary care unit nurse to a significant other at home: No Do you presently have visiting nurse or other home services: No Alcohol intake: current Alcohol intake frequency: holidays/special occasions only Patient Tobacco Use Status: Former Tobacco user Years Smoked: socially only service: No Female Reproductive History Menstrual Age of Menarche: 14 Date of last menstrual period: 12/30/23 Total pregnancies: 2 Full term: 2 Premature: 0 Number of Living Children: 2 Ab induced: 0 Ab spontaneous: 0 Ectopics: 0 Multiple births: 0 Date of last pap smear: 12/26/22 Physical Exam Vital Signs: Last Vital Signs BP 108/76 01/06/24 11:45 BMI result Body Mass Index 30.5 Results Reviewed Results Reviewed: Name: Mary Jo Marin Age/Sex: 37/F Attending: Ysabel Jordan CNM : 1985 Submitted by: NikkiYsabel ANNE Copies to: Stuart Garcia MD MR #: [id number] Status: DEP REF Collected: 07/31/22 [facility] Received: 08/02/22 Interpretation Satisfactory for evaluation. Mild inflammation. Negative for intraepithelial lesion or malignancy. HPV mRNA E6/E7: NOT DETECTED This assay detects E6/E7 viral messenger RNA (mRNA) from 14 high-risk HPV types (16, 18, 31, 33, 35, 39, 45, 51, 52, 56, 58, 59, 66, 68) HPV testing performed by [facility], [place], [place]. See reference laboratory portion of the EMR for entire report. Clinical Information LMP:07/23/22 Previous PAP test: 05/05/21, Unknown findings Material Received ThinPrep-Cervical Copies To Stuart Garcia MD [address] [facility], [address] [address] [address] [address] Electronically Signed By: DANIELLE Mason (ASCP) 08/17/22 1402 The Pap Test is a screening procedure with the inherent possibility of both false negative and false positive results. Results should be interpreted in the context of historic and current clinical findings. Reliability of the Pap Test is enhanced by performing the test on a regular repetitive basis. Patient: Mary Jo Marin Age/Sex: 37/F A Assessment & Plan Assessment & Plan (1) PCOS (polycystic ovarian syndrome): Code(s): E28.2 - Polycystic ovarian syndrome Category: Medical (2) S/P laparoscopic sleeve gastrectomy: Code(s): Z98.84 - Bariatric surgery status Category: Surgical (3) Encounter for screening examination for sexually transmitted disease: Code(s): Z11.3 - Encounter for screening for infections with a predominantly sexual mode of transmission Category: Medical (4) BMI 31.0-31.9,adult: Code(s): Z68.31 - Body mass index [BMI] 31.0-31.9, adult Category: Medical (5) Counseling for control, oral contraceptives: Comment: Note; this provider had started patient on norethindrone OCPs in past on 07/31/22, and had also discussed a Mirena in past. When patient was hospitalized on 10/31/2022, for bariatric surgery, somehow on her medication list the norethindrone OCP was discontinued, and someone listed a triphasic OCP on her med list. When she then ran out of her OCP use the triphasic OCP was the 1 that I refilled. Patient is not happy on this pill and we are switching her back to the norethindrone OCP 01/06/24. 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 She has been on control pills for a long time and she was on the norethindrone control pills which I had prescribed but somehow last year her prescription got switched to a triphasic control pill. Patient believes she has gained about 20 to 30 lb since starting on that pill and she feels like a lot of it is water was and she wants to change back to the norethindrone that she was on at previous visits with me we had discussed using a Mirena IU S but she decided to stay on the norethindrone at that time she was also going to be having bariatric surgery so she stayed on norethindrone as well it appears that when she was in the hospital on the day of her surgery 10/31/2022 the norethindrone pill was discontinued from her medication list and the triphasic OCP was added to her control list on 10/31/2022 that was done in inpatient setting. So when the patient needed a refill of control pills in September because she was running out a refill was sent for the control pills that were stated in her [facility] chart as the triphasic pill. This was discovered through a very deep dive of multiple parts of the [facility] system. Patient most of all does not want to be on this triphasic pill, and she wants to switch back to the norethindrone pill that she was on. After full discussion of what on I am discontinuing the triphasic pill and re prescribing the norethindrone control pill that I had originally prescribed for her. She is interested in testing for STIs and she is also wondering about getting checked to see if how her blood count is her thyroid as she sometimes experiences dizziness. Full blood work for STIs including HIV hep B hep C and syphilis ordered as well as the testing in the office for GC chlamydia trichomoniasis as well as non STDs Gardnerella and Suzanne. Also I am adding tests CBC and TSH she says she saw her primary months ago. She which insurances soon. She is not due for Pap smear as her last smear is negative. She is under a lot of stress she is seeking therapist she does have a new job that she thinks is good for her children's hours. She has staying marriage trying to make things work. She is however happy about she has gained given that she lost a lot of weight after her bariatric surgery and her hard work with exercise and healthy eating I recommend she consider reaching out to bariatric program again for guidance on to boost her efforts at healthy loss. Discussed other potential reasons for dizziness including vertigo and inner ear issues. Importantly I do not think that amount of weight gain can be blamed in any way on the different OCP she was inadvertently prescribed however we are switching it back and I am recommending thinking about other issues such as life stressors. Orders: Orders Hepatitis B Surface Antigen Today E28.2 - Polycystic ovarian syndrome, Z11.3 - Encounter for screening for infections with a predominantly sexual mode of transmission, Z98.84 - Bariatric surgery status HIV Ab/Ag Today E28.2 - Polycystic ovarian syndrome, Z11.3 - Encounter for screening for infections with a predominantly sexual mode of transmission, Z98.84 - Bariatric surgery status Syphilis Screen Today E28.2 - Polycystic ovarian syndrome, Z11.3 - Encounter for screening for infections with a predominantly sexual mode of transmission, Z98.84 - Bariatric surgery status Complete Blood Count no Diff Today E28.2 - Polycystic ovarian syndrome, Z11.3 - Encounter for screening for infections with a predominantly sexual mode of transmission, Z98.84 - Bariatric surgery status AMB HCG Urine Test Today Z32.02 - Encounter for test, result negative Hepatitis C Antibody Today E28.2 - Polycystic ovarian syndrome, Z11.3 - Encounter for screening for infections with a predominantly sexual mode of transmission, Z98.84 - Bariatric surgery status Thyroid Stimulating Hormone Today E28.2 - Polycystic ovarian syndrome, Z11.3 - Encounter for screening for infections with a predominantly sexual mode of transmission, Z98.84 - Bariatric surgery status Medications: Refilled norethindrone (contraceptive) Start today 0.35 mg PO DAILY 84 tabs 4RF Discontinued norgestimate-ethinyl estradiol 0.18/0.215/0.25 mg-35 mcg (28) Discontinued Reason: No Longer Medically Relevant 1 tab PO DAILY 84 tabs 3RF Coding Level of Care Code Est Pt Prev Care 18-39y(80505) Diagnoses PCOS (polycystic ovarian syndrome) E28.2 S/P laparoscopic sleeve gastrectomy Z98.84 Encounter for screening examination for sexually transmitted disease Z11.3 BMI 31.0-31.9,adult Z68.31 Counseling for control, oral contraceptives Z30.09
== END 2024-01-06 13:00 | disposition home or self-care (01) ==
PROVIDERS: PCP Internal Medicine; Visit Provider Advanced Practice Midwife
DX: E28.2 Polycystic ovarian syndrome (principal); Z98.84 Bariatric surgery status; Z11.3 Encounter for screening for infections with a predominantly sexual mode of transmission; Z68.31 Body mass index [BMI] 31.0-31.9, adult; Z30.09 Encounter for other general counseling and advice on contraception
CPT/HCPCS: 99395

== ENCOUNTER 2024-01-06 11:40 | Outpatient (REF) | payer MEDICAID, SELFPAY ==
[2024-01-07 03:21] LABS: CT PCR NOT DETECTED (Not Detect.); NG PCR NOT DETECTED (Not Detect.)
[2024-01-07 11:48] LABS: Bacterial Vaginosis PCR NEGATIVE (Negative); Candida Group PCR NOT DETECTED (Not Detect); Candida glab krusei PCR NOT DETECTED (Not Detect); Trichomonas vaginalis PCR NOT DETECTED (Not Detect)
== END 2024-01-06 11:41 | disposition home or self-care (01) ==
LOC: HO.LNP 11:40
PROVIDERS: PCP Internal Medicine; Visit Provider Advanced Practice Midwife
DX: Z11.3 Encounter for screening for infections with a predominantly sexual mode of transmission (principal)
CPT/HCPCS: 0352U; 87491; 87591

== ENCOUNTER 2024-01-06 12:51 | Outpatient (REF) | payer MEDICAID, SELFPAY ==
[2024-01-06 16:10] LABS: Hematocrit 36.3 % (37.0-47.0); Hemoglobin 12.3 g/dl (12.0-16.0); Mean Corpuscular HGB Conc 33.9 g/dl (31.0-35.0); Mean Corpuscular Hemoglobin 29.7 pg (27.0-33.0); Mean Corpuscular Volume 87.7 fL (80.0-98.0); Mean Platelet Volume 10.2 fL (9.4-12.3); Platelet Count 447 X10*3/uL (160-400); Red Blood Count 4.14 X10*6/uL (4.20-5.50); Red Cell Distribution Width 12.3 % (11.0-16.0); White Blood Count 5.8 X10*3/uL (4.8-10.8)
[2024-01-06 16:58] LABS: Thyroid Stimulating Hormone 1.32 uIU/mL (0.32-4.0)
[2024-01-07 08:15] LABS: HBsAGNum1 0.25 S/CO (0.00-0.99); HIV AB/AG Nonreactive (Nonreactive); HIV Num 1 0.06 S/CO (0.00-0.99); Hepatitis B Surface Antigen Negative (Negative); ~HepC Num1 0.13 S/CO (0.00-0.79); ~Hepatitis C Antibody Nonreactive (Nonreactive)
[2024-01-07 08:27] LABS: Syphilis Screen Nonreactive (Nonreactive)
== END 2024-01-06 12:52 | disposition home or self-care (01) ==
LOC: HO.HHCL 12:51
PROVIDERS: Visit Provider Advanced Practice Midwife
DX: Z11.3 Encounter for screening for infections with a predominantly sexual mode of transmission (principal); Z98.84 Bariatric surgery status; E28.2 Polycystic ovarian syndrome; Z68.31 Body mass index [BMI] 31.0-31.9, adult
CPT/HCPCS: 36415; 84443; 85027; 86780; 86803; 87340; 87389; 99395

== ENCOUNTER 2024-09-07 08:02 | Outpatient (AMB) | payer BC, SELFPAY ==
--- NOTE | 2024-09-07 08:03 | MHC.PC.OV ---
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 She currently lives at home with her and 2 children and feels safe there. 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 Reports only occasional alcohol use, no cigarette smoking, no illicit drug use or marijuana. S/p gastric sleeve procedure-following with bariatric surgery, upcoming appointment this week. Reports that she has not been maintaining her weight as much as she would like. She has been exercising with walking but feels she is over eating and is not following bariatric diet. genital herpes- has not had an outbreak in years. Typically flares with a viral infection. Uses Valtrex as needed for outbreaks Eczema-reports she has an unspecified cream to use for outbreaks. Does not recall the name but reports well-controlled with this eczema- stop and shop Concerns: Feeling down and stressed out lately. Started as manual training teacher. Started a year ago. Spaced out, overhwlemed, sad. Feels pulled back, not getting out as much. Primarily surrounding life stressors. Denies any SI. Currently taking venlafaxine 75 mg daily Hair loss and brittle nails Health maintenance: Mammograms to begin at age 40 Colonoscopies to begin at age 45 Read past medical, social, surgical, family history ROS: General: No fevers, malaise, unintentional weight loss HEENT: No blurred vision, diplopia. No sore throat, nasal congestion, rhinorrhea, sinus pain, ear pain. No hearing loss Neck - no adenopathy Cardiovascular: No chest pain, palpitations, or leg edema Respiratory: No shortness of breath, wheezing, cough Breast: No pain, palpable lumps, nipple inversion GI: No dysphagia, odynophagia, globus sensation. No abdominal pain, nausea, vomiting, diarrhea, constipation, melena, hematochezia : No dysuria, hematuria, increased urinary frequency, decreased urinary output. 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 No AH/VH. No SI/HI Skin: No rashes or lesions EXAM: Constitutional - Awake and Alert, No apparent distress Eyes - PERRLA, EOMI. Anicteric Ears - external ears normal, canals clear, TMs intact and pearly johnson with good cone of light Nose- septum midline, nares clear, no sinus tenderness Mouth/throat- mucosa moist, tongue and uvula midline, no erythema/edema or tonsillar adenopathy. Neck-trachea midline, thyroid symmetric without palpable nodules, no adenopathy Cardiovascular - S1S2, RRR, No edema Respiratory - Normal lung expansion, Normal respiratory effort, No respiratory distress, CTA bilaterally Gastrointestinal - NT / ND; +BS; No rebound or guarding - No CVA tenderness Extremities - no calf tenderness bilaterally, no swelling Musculoskeletal - Normal inspection, normal ROM Skin - Warm/Dry, no concerning lesions Neurological - Alert & oriented x3, CN II-XII in tact, 5/5 strength BUE and BLE, 2+ patellar reflexes, sensation intact Psychological - Appropriate affect [facility] Medical History BMI 35.0-35.9,adult Counseling for control, intrauterine device BCP ( control pills) initiation Hirsutism Abnormal uterine bleeding (AUB) Pre-op evaluation Gonorrhea Cervical cancer screening Potential exposure to STD Recurrent HSV (herpes simplex virus) Well woman exam with routine gynecological exam Abnormal LFTs BMI 34.0-34.9,adult Vitamin A deficiency Abdominal bloating BMI 36.0-36.9,adult Vitamin D deficiency Vitamin B12 deficiency Metrorrhagia BMI 38.0-38.9,adult Obesity (BMI 30-39.9) Surgical History Hx of laparoscopic partial gastrectomy Hx of colonoscopy History of tonsillectomy and adenoidectomy Hx of wisdom tooth extraction Family History Mother Hypertension Father Diabetes Kidney disease Blindness Brother No problems noted. Brother No problems noted. Brother No problems noted. Sister No problems noted. Sister No problems noted. Son Depression Daughter No problems noted. Social History Household Members: Family Housing: House Are you a primary transition of care specialist to a significant other at home: No Do you presently have visiting nurse or other home services: No Alcohol intake: current Alcohol intake frequency: holidays/special occasions only Patient Tobacco Use Status: Former Tobacco user Tobacco use type: Cigarette Years Smoked: socially only e-Cigarette/Vaping Use: Never Used service: No Female Reproductive History Menstrual Age of Menarche: 14 Questionnaire PHQ-9 Over the last 2 weeks, how often have you been bothered by any of the following problems? 1. Little interest or pleasure in doing things: several days 2. Feeling down, depressed, or hopeless: several days 3. Trouble falling or staying asleep, or sleeping too much: several days 4. Feeling tired or having little energy: several days 5. Poor appetite or overeating: several days 6. Feeling bad about yourself - or that you are a failure or have let yourself or your family down: several days 7. Trouble concentrating on things, such as reading the newspaper or watching television: several days 8. Moving or speaking so slowly that other people could have noticed. Or the opposite - being so fidgety or restless that you have been moving around a lot more than usual: several days 9. Thoughts that you would be better off or of hurting yourself in some way: not at all Total score: 8 Depression Screening Interpretation: Positive Depression Screening Done: Yes 25118 - PHQ-9 Billing: Yes Source: Developed by Drs. Albert Carmen, Vikki B.W. Carlos Babcock and colleagues, with an educational jose from [employer]. Thrive Questionnaire Date Thrive assessed: 11/01/22 AUDIT C Alcohol Use Questionnaire (AUDIT-C) 1. How often do you have a drink containing alcohol?: Monthly or less 2. How many drinks containing alcohol do you have on a typical day when you are drinking?: 1 or 2 Total Score: 1 DELMI-7 AMB Questionnaire DELMI-7 Feeling nervous, anxious, or on edge: 1 = Several days Not being able to stop or control worryin = Several days Worrying too much about different things: 1 = Several days Trouble relaxin = Several days Being so restless that it is hard to sit still: 1 = Several days Becoming easily annoyed or irritable: 0 = Not at all Feeling afraid as if something awful might happen: 1 = Several days Total DELMI-7 score (0-4 normal; 5-9 mild; 10-14 moderate; 15-21 severe): 6 Source: Developed by Drs. Albert Carmen, Carlos Zimmerman and colleagues, with an educational jose from [employer]. DELMI-7 Assessment Billing DELMI-7 Assessment Tool: DELMI-7 Assessment 13751 Physical exam (Primary Care) Vital Signs: Last Vital Signs Temp 97.6 F 09/07/24 08:06 Pulse 82 09/07/24 08:06 Resp 14 09/07/24 08:06 BP 122/86 09/07/24 08:06 Pulse Ox 98 09/07/24 08:06 Oxygen Delivery Method Room Air 09/07/24 08:06 BMI result Body Mass Index 29.1 Tobacco/Smoking Status: Tobacco use Status Tobacco use date assessed 09/07/24 09/07/24 08:09 Patient Tobacco Use Status Former Tobacco user 09/07/24 08:09 Tobacco use type Cigarette 09/07/24 08:09 e-Cigarette/Vaping Use Never Used 09/07/24 08:09 Depression Screening Interpretation: Positive Thrive Assessment: Date of Thrive Assessment Date Thrive assessed 11/01/22 09/07/24 08:09 Coding Level of Care Code New Pt Prev Care 18-39yr(38221 Diagnoses Routine medical exam Z00.00 Depression with anxiety F41.8 Brittle nails L60.3 Eczema L30.9 Additional Codes DELMI-7 Assessment Billing - DELMI-7 Assessment Tool: DELMI-7 Assessment 52077 ([id number]) PHQ-9 - 52370 - PHQ-9 Billing: Yes ([id number]) Assessment & Plan Assessment & Plan (1) Routine medical exam: Code(s): Z00.00 - Encounter for general adult medical examination without abnormal findings Plan: 39-year-old female presenting for annual physical exam. Plan as below (2) Depression with anxiety: Code(s): F41.8 - Other specified anxiety disorders Category: Medical Plan: Increase venlafaxine to 150 mg ER. Given resources for counseling. No SI/HI (3) Brittle nails: Code(s): L60.3 - Nail dystrophy Category: Medical Plan: With associated hair loss. Possibly related to elevated testosterone levels. Check TSH and DHEA (4) Eczema: Code(s): L30.9 - Dermatitis, unspecified Category: Medical Plan: Continue topicals Plan Follow-up in office In 6 weeks for depression evaluation Routine screening labs as ordered below Continue with screening mammograms, Pap smears, colonoscopies Continue following for annual skin exams and use sun protection. Referred for skin check Annual eye exams Wear seat belt in car Recommend regular exercise and healthy diet Orders: Orders Lipid Panel Today Z00.00 - Encounter for general adult medical examination without abnormal findings Vitamin D 25-OH Total Today Z00.00 - Encounter for general adult medical examination without abnormal findings DHEA Sulfate Today L65.9 - Nonscarring hair loss, unspecified IRON PROFILE Today Z90.3 - Acquired absence of stomach [part of] Basic Metabolic Panel Today Z00.00 - Encounter for general adult medical examination without abnormal findings Complete Blood Count Auto Diff Today Z00.00 - Encounter for general adult medical examination without abnormal findings Liver Panel Today Z00.00 - Encounter for general adult medical examination without abnormal findings TSH reflex Free T4 Today Z00.00 - Encounter for general adult medical examination without abnormal findings Vitamin B12 Today Z90.3 - Acquired absence of stomach [part of] Referrals Dermatology Referral L60.3 - Nail dystrophy, L98.9 - Disorder of the skin and subcutaneous tissue, unspecified, Z00.00 - Encounter for general adult medical examination without abnormal findings, Z12.83 - Encounter for screening for malignant neoplasm of skin Medications: New venlafaxine ER 150 mg PO DAILY 90 caps 1RF Discontinued venlafaxine Discontinued Reason: Doctor's Order 75 mg PO DAILY 90 tabs 1RF Patient Instructions: Look at [email or web address]. Also recommend Family Care Counseling Can use biotin
[2024-09-07 08:06] VITALS: BP 122/86; PULSE 82; RESP 14; TEMP 36.4; O2SAT 98; BMI 29.1
== END 2024-09-07 08:31 | disposition home or self-care (01) ==
LOC: HO.HMCHD 08:03
PROVIDERS: PCP Physician Assistant; Visit Provider Physician Assistant
DX: Z00.00 Encounter for general adult medical examination without abnormal findings (principal); F41.8 Other specified anxiety disorders; L60.3 Nail dystrophy; L30.9 Dermatitis, unspecified

== ENCOUNTER → 2024-09-07 08:02 | Outpatient (BNVA) | payer BC, SELFPAY | PROVIDERS: PCP Physician Assistant; Visit Provider Physician Assistant | DX: Z00.00 Encounter for general adult medical examination without abnormal findings (principal); F41.8 Other specified anxiety disorders; L60.3 Nail dystrophy; L30.9 Dermatitis, unspecified; Z13.31 Encounter for screening for depression | CPT/HCPCS: 96127 ==

== ENCOUNTER 2024-09-10 14:58 | Outpatient (AMB) | payer BC, SELFPAY ==
--- NOTE | 2024-09-10 15:03 | MHC.OFFVISWM ---
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 Presents for 1 year 10 month post op visit. Weight today is 179.4 pounds, with a BMI of 28.1. There has been a 61.6 pound weight loss,(initial weight 241 pounds) since starting the program on 06/08/22 reflecting a 25.5% total body weight loss and a weight loss of 39.9 pounds since surgery (operative weight 219.3 pounds) reflecting a 18.1% TBWL since surgery. No complaints of nausea, emesis, abdominal pain or reflux. She was last seen in the office in January 2023 with a weight of 165 lb and a BMI of 25.8. She states that she has not been seen in over a year as she had job change and she was not contacted by the office. She has since gained weight and would like to lose weight again. not taking mvi She just started a new meal plan after returning from a cruise on 09/01/24. Not measuring her food quantity Present meal plan includes: 2 premier protein rtd per day salad watermelon tuna salmon drinking 32 oz water ? Exercise routine includes: walking daily recently Any post op complications: none MANAS: never DM: never HTN: never Hyperlipidemia: never GERD:?0-5 scale ??0 = no symptoms ??1 = symptoms noticeable but not bothersome 2 =symptoms bothersome but not daily ? 3 = symptoms bothersome and daily 4 = symptoms affect daily activities 5 = symptoms are incapacitating, unable to do daily activities ? How bad is the heartburn: 0 ? Heartburn while lying down: 0 ? Heartburn when standing up: 0 ? Heartburn after meals: 0 ? Does heartburn change your diet: 0 ? Does heartburn wake you up from sleep: 0 ? Do you have difficulty swallowin ? Do you have pain with swallowin ? If you take medicine for your reflux, does this affect your daily life: 0 Satisfaction with present condition - satisfied or not satisfied: dissatisfied [facility] Medical History BMI 35.0-35.9,adult Counseling for control, intrauterine device BCP ( control pills) initiation Hirsutism Abnormal uterine bleeding (AUB) Pre-op evaluation Gonorrhea Cervical cancer screening Potential exposure to STD Recurrent HSV (herpes simplex virus) Well woman exam with routine gynecological exam Abnormal LFTs BMI 34.0-34.9,adult Vitamin A deficiency Abdominal bloating BMI 36.0-36.9,adult Vitamin D deficiency Vitamin B12 deficiency Metrorrhagia BMI 38.0-38.9,adult Obesity (BMI 30-39.9) Surgical History Hx of laparoscopic partial gastrectomy Hx of colonoscopy History of tonsillectomy and adenoidectomy Hx of wisdom tooth extraction Family History Mother Hypertension Father Diabetes Kidney disease Blindness Brother No problems noted. Brother No problems noted. Brother No problems noted. Sister No problems noted. Sister No problems noted. Son Depression Daughter No problems noted. Social History Household Members: Family Housing: House Are you a primary pet care technician to a significant other at home: No Do you presently have visiting nurse or other home services: No Alcohol intake: current Alcohol intake frequency: holidays/special occasions only Patient Tobacco Use Status: Former Tobacco user Tobacco use type: Cigarette Years Smoked: socially only e-Cigarette/Vaping Use: Never Used service: No Female Reproductive History Menstrual Age of Menarche: 14 Physical Exam Const General: cooperative and no acute distress Orientation/consciousness: patient oriented x3 Resp Effort & Inspection: normal respiratory effort Auscultation: clear to auscultation bilaterally Cardio Rate: regular rate Rhythm: regular rhythm GI Inspection: Yes normal to inspection and Yes incision (well healed) Palpation (GI): Soft to palpation and no masses Neuro General: patient oriented x3 Assessment & Plan Assessment & Plan (1) S/P laparoscopic sleeve gastrectomy: Code(s): Z98.84 - Bariatric surgery status Category: Surgical Plan: Patient returns to the clinic after not being seen for approximately 18 months. Check yearly follow-up labs Encouraged to get multivitamin, we will recommend other vitamin supplements as needed based on data from labs Given information regarding right BMI tamra discussed the importance of following a meal plan consistently and accurately. Measuring food quantities. Encouraged to exercise daily as she states she has ?everything? at her home. Goal of using cardio equipment, bike, treadmill, elliptical, rowing machine for a goal of burning 300 calories per day. She certainly may do weight training prior to cardio, 20 minutes of weight training followed by 40 minutes of cardio Return to clinic 1 month. Orders: Orders Vitamin A Today R16.0 - Hepatomegaly, not elsewhere classified, Z87.19 - Personal history of other diseases of the digestive system, Z98.84 - Bariatric surgery status, Z98.890 - Other specified postprocedural states Zinc Today R16.0 - Hepatomegaly, not elsewhere classified, Z87.19 - Personal history of other diseases of the digestive system, Z98.84 - Bariatric surgery status, Z98.890 - Other specified postprocedural states Ferritin Today R16.0 - Hepatomegaly, not elsewhere classified, Z87.19 - Personal history of other diseases of the digestive system, Z98.84 - Bariatric surgery status, Z98.890 - Other specified postprocedural states Vitamin B1 Today R16.0 - Hepatomegaly, not elsewhere classified, Z87.19 - Personal history of other diseases of the digestive system, Z98.84 - Bariatric surgery status, Z98.890 - Other specified postprocedural states Vitamin B12 and Folate Today R16.0 - Hepatomegaly, not elsewhere classified, Z87.19 - Personal history of other diseases of the digestive system, Z98.84 - Bariatric surgery status, Z98.890 - Other specified postprocedural states Hemoglobin A1c Today R16.0 - Hepatomegaly, not elsewhere classified, Z87.19 - Personal history of other diseases of the digestive system, Z98.84 - Bariatric surgery status, Z98.890 - Other specified postprocedural states
[2024-09-10 15:14] VITALS: BP 126/92; PULSE 86; TEMP 37; O2SAT 96; BMI 28.1
== END 2024-09-10 15:47 | disposition home or self-care (01) ==
PROVIDERS: PCP Internal Medicine; Visit Provider Physician Assistant Surgical
DX: E66.3 Overweight (principal); Z68.28 Body mass index [BMI] 28.0-28.9, adult; Z90.3 Acquired absence of stomach [part of]; Z98.84 Bariatric surgery status
CPT/HCPCS: 99214

== ENCOUNTER 2024-10-16 16:00 | Outpatient (AMB) | payer BC, SELFPAY ==
--- NOTE | 2024-10-16 08:11 | MHC.OFFVISWM ---
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 Presents for 1 year 11 month post op visit. Weight today is 177.4 pounds, with a BMI of 27.8. There has been a 63.6 pound weight loss,(initial weight 241 pounds) since starting the program on 06/08/22 reflecting a 26.3% total body weight loss and a weight loss of 41.9 pounds since surgery (operative weight 219.3 pounds) reflecting a 19.1% TBWL since surgery. No complaints of nausea, emesis, abdominal pain or reflux. She was last seen in the office in January 2023 with a weight of 165 lb and a BMI of 25.8. She states that she has not been seen in over a year as she had job change and she was not contacted by the office. She has since gained weight and would like to lose weight again. This visit, approximately 1 month ago, she has lost 2 lb. She did not yet get labs done that were ordered. She did not follow up on the right BMI tamra. Present meal plan includes: 1-2 shakes rtd premier protein per day various things ice cream drinking 32 oz water ? Exercise routine includes: weight training 4-6 days per week 6 in run [facility] Medical History BMI 35.0-35.9,adult Counseling for control, intrauterine device BCP ( control pills) initiation Hirsutism Abnormal uterine bleeding (AUB) Pre-op evaluation Gonorrhea Cervical cancer screening Potential exposure to STD Recurrent HSV (herpes simplex virus) Well woman exam with routine gynecological exam Abnormal LFTs BMI 34.0-34.9,adult Vitamin A deficiency Abdominal bloating BMI 36.0-36.9,adult Vitamin D deficiency Vitamin B12 deficiency Metrorrhagia BMI 38.0-38.9,adult Obesity (BMI 30-39.9) Surgical History Hx of laparoscopic partial gastrectomy Hx of colonoscopy History of tonsillectomy and adenoidectomy Hx of wisdom tooth extraction Family History Mother Hypertension Father Diabetes Kidney disease Blindness Brother No problems noted. Brother No problems noted. Brother No problems noted. Sister No problems noted. Sister No problems noted. Son Depression Daughter No problems noted. Social History Household Members: Family Housing: House Are you a primary medicare specialist to a significant other at home: No Do you presently have visiting nurse or other home services: No Alcohol intake: current Alcohol intake frequency: holidays/special occasions only Patient Tobacco Use Status: Former Tobacco user Tobacco use type: Cigarette Years Smoked: socially only e-Cigarette/Vaping Use: Never Used service: No Female Reproductive History Menstrual Age of Menarche: 14 Physical Exam Vital Signs: BMI result Body Mass Index 27.8 Telehealth Telehealth Telehealth Platform: Telephone Location of provider rendering services: practice address Location of patient: address on file Patient Identification confirmed using: Name, : Yes Telehealth method: voice only Patient verbally consented to treatment: Yes Patient verbally consented to billing insurance company: Yes Patient informed of any privacy concerns related to visit: Yes Minutes spent on Phone/Video with Pt.: 15 Assessment & Plan Assessment & Plan (1) S/P laparoscopic sleeve gastrectomy: Code(s): Z98.84 - Bariatric surgery status Category: Surgical Plan: Patient has the right BMI tamra information. She has not followed it. She has not been following any significant or consistent meal plans. She has been exercising regularly, discussed the importance of following a meal plan and she states that she will begin to do this. Additionally, she is not drinking as much fluids as she should, potentially only 30-40 oz per day. Discussed the risk of kidney stones. She states that she will drink more fluids. We will have her return to the office in 4-6 weeks
[2024-10-16 08:12] VITALS: BMI 27.8
== END 2024-10-16 16:15 | disposition home or self-care (01) ==
LOC: HO.HBS 16:00
PROVIDERS: PCP Internal Medicine; Visit Provider Physician Assistant Surgical
DX: E66.3 Overweight (principal); Z68.27 Body mass index [BMI] 27.0-27.9, adult; Z90.3 Acquired absence of stomach [part of]; Z98.84 Bariatric surgery status
CPT/HCPCS: 98967

== ENCOUNTER → 2024-10-16 16:00 | Outpatient (BNVA) | payer BC, SELFPAY | PROVIDERS: PCP Internal Medicine; Visit Provider Physician Assistant Surgical | DX: Z98.84 Bariatric surgery status (principal) | CPT/HCPCS: 98967 ==

== ENCOUNTER 2024-10-19 16:06 | Outpatient (AMB) | payer BC, SELFPAY ==
--- NOTE | 2024-10-19 16:16 | MHC.PC.OV ---
Vital Signs 10/19/24 16:19 Height 5 ft 7 in Weight 81.647 kg BMI 28.2 BP 142/90 H Respiration 12 Pulse 88 Pulse Source Pulse Oximeter Temp 98.7 F Temp Source Temporal Artery Scan Pulse Oximetry (%) 97 Oxygen Delivery Method Room Air Intake Visit Reasons: 6 Week F/U Ruby Software Developer Required: No Accompanied by: Self / Same As Patient Allergies Seasonal Allergies Allergy (Severe, Verified 10/19/24 16:18) Anaphylaxis Tobacco use date assessed: 09/07/24 HPI HPI Comments History of Present Illness Details 39-year-old female presenting to the office for follow-up on depression anxiety. Her dose of venlafaxine was increased from 75-150 mg ER. Reports significant improvement in symptoms. She reports more energy, waking up rested. Has been running 6mi per day with weight training and overall better diet. No SI. Anxiety also improved. Following with weight management as well. Has been losing weight, goal 15-20pounds more. ROS: see hpi EXAM: Constitutional - Awake and Alert, No apparent distress Eyes - PERRL Cardiovascular - S1S2, RRR, No edema Respiratory - Normal lung expansion, Normal respiratory effort, No respiratory distress, CTA bilaterally Extremities - no calf tenderness bilaterally, no swelling Skin - Warm/Dry Neurological - Alert & oriented x3 Psychological - Appropriate affect [facility] Medical History BMI 35.0-35.9,adult Counseling for control, intrauterine device BCP ( control pills) initiation Hirsutism Abnormal uterine bleeding (AUB) Pre-op evaluation Gonorrhea Cervical cancer screening Potential exposure to STD Recurrent HSV (herpes simplex virus) Well woman exam with routine gynecological exam Abnormal LFTs BMI 34.0-34.9,adult Vitamin A deficiency Abdominal bloating BMI 36.0-36.9,adult Vitamin D deficiency Vitamin B12 deficiency Metrorrhagia BMI 38.0-38.9,adult Obesity (BMI 30-39.9) Surgical History Hx of laparoscopic partial gastrectomy Hx of colonoscopy History of tonsillectomy and adenoidectomy Hx of wisdom tooth extraction Family History Mother Hypertension Father Diabetes Kidney disease Blindness Brother No problems noted. Brother No problems noted. Brother No problems noted. Sister No problems noted. Sister No problems noted. Son Depression Daughter No problems noted. Social History Household Members: Family Housing: House Are you a primary after school caregiver to a significant other at home: No Do you presently have visiting nurse or other home services: No Alcohol intake: current Alcohol intake frequency: holidays/special occasions only Patient Tobacco Use Status: Former Tobacco user Tobacco use type: Cigarette Years Smoked: socially only e-Cigarette/Vaping Use: Never Used service: No Female Reproductive History Menstrual Age of Menarche: 14 Questionnaire Thrive Questionnaire Date Thrive assessed: 11/01/22 Physical exam (Primary Care) Vital Signs: Last Vital Signs Temp 98.7 F 10/19/24 16:19 Pulse 88 10/19/24 16:19 Resp 12 10/19/24 16:19 BP 142/90 H 10/19/24 16:19 Pulse Ox 97 10/19/24 16:19 Oxygen Delivery Method Room Air 10/19/24 16:19 BMI result Body Mass Index 28.2 Tobacco/Smoking Status: Tobacco use Status Tobacco use date assessed 09/07/24 10/19/24 16:23 Patient Tobacco Use Status Former Tobacco user 10/19/24 16:23 Tobacco use type Cigarette 10/19/24 16:23 e-Cigarette/Vaping Use Never Used 10/19/24 16:23 Thrive Assessment: Date of Thrive Assessment Date Thrive assessed 11/01/22 10/19/24 16:23 Coding Level of Care Code Est Pt Level 3 (80174) Diagnoses Depression with anxiety F41.8 Overweight (BMI 25.0-29.9) E66.3 Assessment & Plan Assessment & Plan (1) Depression with anxiety: Code(s): F41.8 - Other specified anxiety disorders Category: Medical Plan: Much improved. Continue venlafaxine (2) Overweight (BMI 25.0-29.9): Code(s): E66.3 - Overweight Category: Medical Plan: Commended on efforts. Continue weight diet changes and exercise. Follow with clinic Plan Follow up in 1 year for annual
[2024-10-19 16:19] VITALS: BP 142/90; PULSE 88; RESP 12; TEMP 37.1; O2SAT 97; BMI 28.2
== END 2024-10-19 16:41 | disposition home or self-care (01) ==
LOC: HO.HMCHD 16:07
PROVIDERS: PCP Physician Assistant; Visit Provider Physician Assistant
DX: F41.8 Other specified anxiety disorders (principal); E66.3 Overweight

== ENCOUNTER 2025-01-25 10:28 | Outpatient (REF) | payer BC, SELFPAY ==
[2025-01-25 13:13] LABS: MANUAL DIFF FLAG NO
[2025-01-25 13:35] LABS: Hematocrit 39.6 % (37.0-47.0); Hemoglobin 13.1 g/dl (12.0-16.0); Imm Gran Abs Auto 0.01 X10*3/uL (0.00-0.03); Imm Gran Pct Auto 0.2 % (0.0-0.4); Lymphocytes Absolute Auto 2.0 X10*3/uL (1.2-4.9); Mean Corpuscular HGB Conc 33.1 g/dl (31.0-35.0); Mean Corpuscular Hemoglobin 29.1 pg (27.0-33.0); Mean Corpuscular Volume 88.0 fL (80.0-98.0); NRBC Abs Auto 0.000 X10*3/uL (0.0-0.012); NRBC Pct Auto 0.0 /100WBC (0.0-0.2); Platelet Count 450 X10*3/uL (160-400); Red Blood Count 4.50 X10*6/uL (4.20-5.50); White Blood Count 5.1 X10*3/uL (4.8-10.8)
[2025-01-25 14:07] LABS: Alanine Aminotransferase 20 U/L (0-31); Albumin Level 4.8 g/dL (3.5-5.0); Alkaline Phosphatase 69 U/L (39-117); Anion Gap 11 (12-20); Aspartate Amino Transferase 21 U/L (5-31); Blood Urea Nitrogen 15 mg/dL (9-16); Calcium 9.4 mg/dL (8.4-10.2); Carbon Dioxide 24 mmol/L (22-29); Chloride 108 mmol/L (96-108); Cholesterol 194 mg/dL (<200); Estimated Glomerular Filt Rate > 60; HDL Cholesterol 60 mg/dL (>40); Iron 137 mcg/dL (30-160); Percent Iron Saturation 37 % (15-50); Potassium 4.2 mmol/L (3.3-5.1); Sodium 139 mmol/L (135-145); Total Iron Binding Capacity 367 mcg/dL (228-428); Total Protein 7.8 g/dL (6.5-8.0); Triglycerides 65 mg/dL (<150); Unsaturated Iron Binding 230 ug/dL
[2025-01-25 14:24] LABS: Folate 16.2 ng/mL (> or = 4.0); Vitamin B12 395 pg/mL (200-900)
[2025-01-25 14:26] LABS: Ferritin 21 ng/mL (10-122)
[2025-01-26 07:51] LABS: HBsAGNum1 3.71 S/CO (0.00-0.99); HIV Num 1 0.13 S/CO (0.00-0.99); Syphilis Screen Nonreactive (Nonreactive); ~HepC Num1 0.18 S/CO (0.00-0.79); ~Hepatitis C Antibody Nonreactive (Nonreactive)
[2025-01-26 12:08] LABS: HBsAGNum2 Nonreactive; HBsAGNum3 Nonreactive; Hepatitis B Surface Antigen NEGATIVE (Negative)
== END 2025-01-25 10:29 | disposition home or self-care (01) ==
LOC: HO.HHCL 10:28
PROVIDERS: Physician Assistant Surgical; PCP Physician Assistant; Referring Provider Physician Assistant; Visit Provider Advanced Practice Midwife
DX: Z30.09 Encounter for other general counseling and advice on contraception (principal); Z12.4 Encounter for screening for malignant neoplasm of cervix; E28.2 Polycystic ovarian syndrome; R16.0 Hepatomegaly, not elsewhere classified; L65.9 Nonscarring hair loss, unspecified; Z87.19 Personal history of other diseases of the digestive system; Z98.84 Bariatric surgery status; Z90.3 Acquired absence of stomach [part of]; Z98.890 Other specified postprocedural states; Z68.31 Body mass index [BMI] 31.0-31.9, adult; Z13.1 Encounter for screening for diabetes mellitus; Z11.59 Encounter for screening for other viral diseases; Z11.4 Encounter for screening for human immunodeficiency virus [HIV]
CPT/HCPCS: 36415; 80048; 80061; 80076; 82306; 82607; 82627; 82728; 82746; 83036; 83540; 84425; 84443; 84590; 85025; 86780; 86803; 87340; 87389

== ENCOUNTER 2025-01-25 10:28 | Outpatient (AMB) | payer BC, SELFPAY ==
--- NOTE | 2025-01-25 10:33 | MHC.OFFVIS ---
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 She is interested in full screening for STIs she has gone back with her and just would like reassurance by having full screening. She currently is on a medicine for anxiety and says it is helping and the increased dose help as well. She sees her primary care provider and the team at [facility]. She had been running every day during the summer but now that she has gone back to work with a job that she had really does love she has not had time to run or exercise as much sure she has gained a lot of the weight back she does have intentions to lose it again. 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 She is on the norethindrone control pills and she did forget that they do not regulate periods she has not been keeping track exactly but her impression is that they have not been too regular. She plans to keep track again. She very much wants to stay on these control pills. She had irregular periods and hirsute is Um and had been diagnosed in the past with PCOS but she thought she did not have it anymore because she had had an ultrasound done pre bariatric surgery that showed no cysts. I did discuss that the diagnosis relates to his full syndrome and not but to just the presence of cysts. She said she had talked to her primary care provider about her nails changing and hair not being as full as she remembered it and wondered if that was due to the bariatric surgery but her provider told her she was danelle menopausal so we did discuss the range of danelle menopausal symptoms and that that can encompass a large amount of time, and some changes are related to aging. She had currently does not have a therapist the last 1 she saw was somebody she saw with her and she felt the it was not a good fit for her she does have her sister that she could talk to if she needed to. She says things are going well right now. [facility] Medical History (Updated 01/25/25 @ 10:50 by Ysabel Jordan CNM) Cervical cancer screening BMI 35.0-35.9,adult Counseling for control, intrauterine device BCP ( control pills) initiation Hirsutism Abnormal uterine bleeding (AUB) Pre-op evaluation Gonorrhea Potential exposure to STD Recurrent HSV (herpes simplex virus) Well woman exam with routine gynecological exam Abnormal LFTs BMI 34.0-34.9,adult Vitamin A deficiency Abdominal bloating BMI 36.0-36.9,adult Vitamin D deficiency Vitamin B12 deficiency Metrorrhagia BMI 38.0-38.9,adult Obesity (BMI 30-39.9) Surgical History Hx of laparoscopic partial gastrectomy Hx of colonoscopy History of tonsillectomy and adenoidectomy Hx of wisdom tooth extraction Family History Mother Hypertension Father Diabetes Kidney disease Blindness Brother No problems noted. Brother No problems noted. Brother No problems noted. Sister No problems noted. Sister No problems noted. Son Depression Daughter No problems noted. Social History Household Members: Family Housing: House Are you a primary palliative care coordinator to a significant other at home: No Do you presently have visiting nurse or other home services: No Alcohol intake: current Alcohol intake frequency: holidays/special occasions only Patient Tobacco Use Status: Former Tobacco user Tobacco use type: Cigarette Years Smoked: socially only e-Cigarette/Vaping Use: Never Used Patient : No service: No Female Reproductive History Menstrual Age of Menarche: 14 Duration of menses: 3-5 days Date of last menstrual period: 01/11/25 control method: pills Total pregnancies: 2 Full term: 2 Date of last pap smear: 07/31/22 (negative pap smear, negative hpv ) Physical Exam Vital Signs: Last Vital Signs BP 116/70 01/25/25 10:41 BMI result Body Mass Index 29.8 Assessment & Plan Assessment & Plan (1) Counseling for control, oral contraceptives: Comment: Note; this provider had started patient on norethindrone OCPs in past on 07/31/22, and had also discussed a Mirena in past. When patient was hospitalized on 10/31/2022, for bariatric surgery, somehow on her medication list the norethindrone OCP was discontinued, and someone listed a triphasic OCP on her med list. When she then ran out of her OCP use the triphasic OCP was the 1 that I refilled. Patient is not happy on this pill and we are switching her back to the norethindrone OCP 01/06/24. Code(s): Z30.09 - Encounter for other general counseling and advice on contraception Category: Medical (2) PCOS (polycystic ovarian syndrome): Code(s): E28.2 - Polycystic ovarian syndrome Category: Medical (3) S/P laparoscopic sleeve gastrectomy: Code(s): Z98.84 - Bariatric surgery status Category: Surgical (4) Cervical cancer screening: Comment: 07/31/2022 Pap is negative with negative HPV. 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 She is interested in full screening for STIs she has gone back with her and just would like reassurance by having full screening. She currently is on a medicine for anxiety and says it is helping and the increased dose help as well. She sees her primary care provider and the team at [facility]. She had been running every day during the summer but now that she has gone back to work with a job that she had really does love she has not had time to run or exercise as much sure she has gained a lot of the weight back she does have intentions to lose it again. 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 She is on the norethindrone control pills and she did forget that they do not regulate periods she has not been keeping track exactly but her impression is that they have not been too regular. She plans to keep track again. She very much wants to stay on these control pills. She had irregular periods and hirsute is Um and had been diagnosed in the past with PCOS but she thought she did not have it anymore because she had had an ultrasound done pre bariatric surgery that showed no cysts. I did discuss that the diagnosis relates to his full syndrome and not but to just the presence of cysts. She said she had talked to her primary care provider about her nails changing and hair not being as full as she remembered it and wondered if that was due to the bariatric surgery but her provider told her she was danelle menopausal so we did discuss the range of danelle menopausal symptoms and that that can encompass a large amount of time, and some changes are related to aging. She had currently does not have a therapist the last 1 she saw was somebody she saw with her and she felt the it was not a good fit for her she does have her sister that she could talk to if she needed to. She says things are going well right now. She wanted her Pap smear done as well as screening for full STIs both with the exam and also with blood work she wants to stay on the pills and I am renewing that prescription for her recommend keeping track of cycles discussed danelle menopausal changes and normal changes that go on she was curious about lubricant and I recommend water-based lubricants. Suggested having an awareness of who she would use for her therapy/support should she need it and consider reaching out to her primary care provider for resources it sounded like she had been to [facility] before and the would be the main referring support available within our system. I told her we would call her for any positive results the BV and yeast would not necessarily need to be treated but I did recommend that she check on the results herself proactively as well. Orders: Orders Hepatitis B Surface Antigen Today E28.2 - Polycystic ovarian syndrome, Z11.3 - Encounter for screening for infections with a predominantly sexual mode of transmission, Z12.4 - Encounter for screening for malignant neoplasm of cervix, Z30.09 - Encounter for other general counseling and advice on contraception, Z68.31 - Body mass index [BMI] 31.0-31.9, adult, Z98.84 - Bariatric surgery status Hepatitis C Antibody Today E28.2 - Polycystic ovarian syndrome, Z11.3 - Encounter for screening for infections with a predominantly sexual mode of transmission, Z12.4 - Encounter for screening for malignant neoplasm of cervix, Z30.09 - Encounter for other general counseling and advice on contraception, Z68.31 - Body mass index [BMI] 31.0-31.9, adult, Z98.84 - Bariatric surgery status HIV Ab/Ag Today E28.2 - Polycystic ovarian syndrome, Z11.3 - Encounter for screening for infections with a predominantly sexual mode of transmission, Z12.4 - Encounter for screening for malignant neoplasm of cervix, Z30.09 - Encounter for other general counseling and advice on contraception, Z68.31 - Body mass index [BMI] 31.0-31.9, adult, Z98.84 - Bariatric surgery status Syphilis Screen Today E28.2 - Polycystic ovarian syndrome, Z11.3 - Encounter for screening for infections with a predominantly sexual mode of transmission, Z12.4 - Encounter for screening for malignant neoplasm of cervix, Z30.09 - Encounter for other general counseling and advice on contraception, Z68.31 - Body mass index [BMI] 31.0-31.9, adult, Z98.84 - Bariatric surgery status Medications: Refilled norethindrone (contraceptive) Start today 0.35 mg PO DAILY 84 tabs 4RF Coding Level of Care Code Est Pt Prev Care 18-39y(41183) Diagnoses Counseling for control, oral contraceptives Z30.09 PCOS (polycystic ovarian syndrome) E28.2 S/P laparoscopic sleeve gastrectomy Z84 Cervical cancer screening Z12.4 Encounter for screening examination for sexually transmitted disease Z11.3 Overweight (BMI 25.0-29.9) E66.3
[2025-01-25 10:41] VITALS: BP 116/70; BMI 29.8
== END 2025-01-25 12:09 | disposition home or self-care (01) ==
LOC: HO.HWS 10:28
PROVIDERS: PCP Physician Assistant; Visit Provider Advanced Practice Midwife
DX: Z01.419 Encounter for gynecological examination (general) (routine) without abnormal findings (principal); E28.2 Polycystic ovarian syndrome; E66.3 Overweight; Z68.29 Body mass index [BMI] 29.0-29.9, adult; Z30.09 Encounter for other general counseling and advice on contraception; Z11.3 Encounter for screening for infections with a predominantly sexual mode of transmission; Z98.84 Bariatric surgery status
CPT/HCPCS: 99395

== ENCOUNTER 2025-01-25 14:48 | Outpatient (REF) | payer BC, SELFPAY ==
[2025-01-26 15:04] LABS: Bacterial Vaginosis PCR POSITIVE (Negative); Candida Group PCR NOT DETECTED (Not Detect); Candida glab krusei PCR NOT DETECTED (Not Detect); Trichomonas vaginalis PCR NOT DETECTED (Not Detect)
[2025-01-26 15:36] LABS: CT PCR NOT DETECTED (Not Detect.); NG PCR NOT DETECTED (Not Detect.)
== END 2025-01-25 14:49 | disposition home or self-care (01) ==
LOC: HO.LNP 14:48
PROVIDERS: Visit Provider Advanced Practice Midwife
DX: Z12.4 Encounter for screening for malignant neoplasm of cervix (principal); Z30.09 Encounter for other general counseling and advice on contraception; Z20.2 Contact with and (suspected) exposure to infections with a predominantly sexual mode of transmission
CPT/HCPCS: 81515; 87491; 87591; 87626; 88175

== ENCOUNTER 2025-02-10 16:03 | Outpatient (AMB) | payer BC, SELFPAY ==
--- NOTE | 2025-02-10 15:54 | MHC.OFFVISWM ---
VS Expanded 02/10/25 15:55 Height 5 ft 7 in Weight 188 lb 8 oz BMI 29.5 Intake Visit Reasons: (TV) PO LSG 03/12/23 Allergies Seasonal Allergies Allergy (Severe, Verified 01/25/25 10:39) Anaphylaxis Medication List - Last Reconciled 02/10/25 by CESAR Maria norethindrone (contraceptive) 0.35 mg PO DAILY valacyclovir 500 mg PO DAILY PRN venlafaxine ER 150 mg PO DAILY HPI Comments Details: This a 39 yo female who is s/p LSG without hiatal hernia repair on 10/31/[address] Baires. Weight today is 188.8 pounds, with a BMI of 29.5. Initial weight 241 pounds and operative weight 219.3 pounds. No complaints of nausea, emesis, abdominal pain or reflux. 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 Present meal plan includes: not following a formal plan uses premade Premier shakes drinking 32 oz water Exercise routine includes: weight training 4-6 days per week was doing 6 mi run but has been less consistent [facility] Medical History (Updated 01/29/25 @ 11:41 by Ysabel Jordan CNM) Cervical cancer screening BMI 35.0-35.9,adult Counseling for control, intrauterine device BCP ( control pills) initiation Hirsutism Abnormal uterine bleeding (AUB) Pre-op evaluation Gonorrhea Potential exposure to STD Recurrent HSV (herpes simplex virus) Well woman exam with routine gynecological exam Abnormal LFTs BMI 34.0-34.9,adult Vitamin A deficiency Abdominal bloating BMI 36.0-36.9,adult Vitamin D deficiency Vitamin B12 deficiency Metrorrhagia BMI 38.0-38.9,adult Obesity (BMI 30-39.9) Surgical History Hx of laparoscopic partial gastrectomy Hx of colonoscopy History of tonsillectomy and adenoidectomy Hx of wisdom tooth extraction Family History Mother Hypertension Father Diabetes Kidney disease Blindness Brother No problems noted. Brother No problems noted. Brother No problems noted. Sister No problems noted. Sister No problems noted. Son Depression Daughter No problems noted. Social History Household Members: Family Housing: House Are you a primary point of care specialist to a significant other at home: No Do you presently have visiting nurse or other home services: No Alcohol intake: current Alcohol intake frequency: holidays/special occasions only Patient Tobacco Use Status: Former Tobacco user Tobacco use type: Cigarette Years Smoked: socially only e-Cigarette/Vaping Use: Never Used service: No Female Reproductive History Menstrual Age of Menarche: 14 Telehealth Telehealth Telehealth Platform: Telephone Location of provider rendering services: practice address Location of patient: address on file Patient Identification confirmed using: Name, : Yes Telehealth method: voice only Patient verbally consented to treatment: Yes Patient verbally consented to billing insurance company: Yes Patient informed of any privacy concerns related to visit: Yes Minutes spent on Phone/Video with Pt.: 15 Assessment & Plan Assessment & Plan (1) S/P laparoscopic sleeve gastrectomy: Code(s): Z98.84 - Bariatric surgery status Category: Surgical (2) Overweight (BMI 25.0-29.9): Code(s): E66.3 - Overweight Category: Medical Plan Pt is interested in phentermine for help with appetite suppression as she struggles with hunger. Reviewed contraindications and side effects. Pt understands the requirement of daily BP monitoring prior to dosing. If SBP > 140 or DBP >90 do not take phentermine that day. Text me BP readings daily. She will get a home BP monitor. Resent [employer] info as she had not been using this and did not have the info. Discussed the importance of a good nutrition plan even with meds, and meds alone are not sufficient for fdc weight maintenance without nutrition or exercise. RTC 3-4mo TV. Medications: New phentermine must administer 2 hours after breakfast 15 mg PO DAILY 30 caps 0RF
[2025-02-10 15:55] VITALS: BMI 29.5
== END 2025-02-10 16:13 | disposition home or self-care (01) ==
LOC: HO.HBS 16:03
PROVIDERS: PCP Physician Assistant; Visit Provider Physician Assistant Surgical
DX: E66.3 Overweight (principal); Z68.29 Body mass index [BMI] 29.0-29.9, adult; Z90.3 Acquired absence of stomach [part of]; Z98.84 Bariatric surgery status
CPT/HCPCS: 98967